=== PATIENT | male | born 1945 | race Caucasian/White ===

== ENCOUNTER 2016-08-25 21:49 | Emergency (ER) | payer OTHER ==
[~2016-08-25] VITALS: Ht 165.1 cm; Wt 94.0 kg
[~2016-08-25 21:49] MED LIST: ALBUAER2 INH; APR50 PO; ASPI81TA28 PO; CALC600T PO; CHOL100027 PO; DOXY100C PO; FLV1 PO; LEVA1.25 INH; LPT20 PO; PRED10TA PO; PRLSR20 PO; SULI200T PO; TIMO0.05 OPB; TRAM-10 PO
[2016-08-25 21:58] VITALS: TEMP 37.4; Ht 165.1 cm; Wt 94.0 kg
[2016-08-25 22:28] LABS: URINE APPEARANCE CLEAR (CLEAR); URINE BILIRUBIN NEG (NEG); URINE COLOR YELLOW; URINE EPITHELIAL CELL AUTO 20-30 /lpf (0-5); URINE NITRITE NEG (NEG); URINE SPECIFIC GRAVITY 1.004 (1.000-1.030); UROBILINOGEN NEG (NEG)
[2016-08-25 22:35] LABS: MANUAL MICROSCOPIC REQUIRED? NO; REVIEW REQ? NO
--- NOTE | 2016-08-25 23:05 | EMERGENCY ROOM VISIT NOTE ---
History First contact with patient: 21:50 Chief Complaint: UNABLE TO VOID Stated Complaint: URINARY RETENSION History of Present Illness The patient is a 71 year old male who presents to the Emergency Room with complaints of unable to urinate since 9 AM. Patient had urinary retention before. He is unsure who his urologist is. Patient does have an enlarged prostate. Patient denies chest pain, dyspnea, fever, chills, vomiting, diarrhea. He is tolerating by mouth fluids and food. No recent surgery. Review of Systems See HPI for pertinent positives & negatives. A total of 10 systems reviewed and were otherwise negative. Past Medical/Surgical History Medical Problems: (1) BPH (benign prostatic hyperplasia) (2) Cataract (3) COPD exacerbation (4) COPD, moderate (5) GERD (gastroesophageal reflux disease) (6) Glaucoma (7) Hypertension (8) NSTEMI (non-ST elevated myocardial infarction) (9) Osteoporosis (10) Pulmonary embolism (11) Rheumatoid arthritis (12) Vitamin D deficiency Surgical Problems: (1) H/O eye surgery Social History Problems: (1) Tobacco abuse Family History Aneurysm FATHER Diabetes mellitus GRANDMOTHER Social History Smoking Status: Former Smoker Alcohol Use: none Drug Use: none Marital Status: Housing Status: lives with significant other Occupation Status: unemployed Current/Historical Medications Scheduled Aspirin (Aspirin Ec), 81 MG PO DAILY Atorvastatin (Lipitor), 20 MG PO DAILY Calcium Carbonate (Calcium 600), 1 TAB PO DAILY Cholecalciferol (Vitamin D 1000 Unit), 1,000 INTER.UNIT PO DAILY Doxazosin Mesylate (Cardura), 4 MG PO HS Doxycycline Hyclate (Vibramycin), 100 MG PO UD Finasteride (Proscar), 5 MG PO DAILY Fluticasone Furoate-Vilanterol (Breo Ellipta), 1 PUFF INH BID Folic Acid (Folic Acid), 1 MG PO 6XWK Furosemide (Furosemide), 40 MG PO 3XWK Furosemide (Lasix), 20 MG PO 4XWK Hydralazine Hcl (Apresoline), 50 MG PO BID Methotrexate (Methotrexate), 12.5 MG PO WK Omeprazole (Prilosec), 20 MG PO QPM Prednisone Tab (Prednisone), 10 MG PO UD Sulindac (Clinoril), 200 MG PO BID Timolol Maleate (Ophth) (Timoptic 0.25% Oph), 1 DROP OPB BID Scheduled PRN Albuterol (Ventolin), 2 PUFF INH QID PRN for SOB/Wheezing Levalbuterol Soln (Xopenex 1.25MG/3ML), 1.25 MG INH Q4 PRN for SOB/Wheezing Tramadol (Ultram), 50 MG PO Q12 PRN for Pain Allergies Coded Allergies: No Known Allergies (Unverified , 05/21/16) Physical Exam Vital Signs Date Time Temp Pulse Resp B/P Pulse Ox O2 Delivery O2 Flow Rate FiO2 08/25/16 21:58 37.4 92 21 154/89 96 Nasal Cannula 4.0 Physical Exam VITALS: Vitals are noted on the nurse's note and reviewed by myself. Vital signs stable. Patient normally wears 4 L of oxygen GENERAL: Pleasant male who appears uncomfortable, in no acute distress, nondiaphoretic, well-developed well-nourished. SKIN: The skin was without rashes, erythema, edema, or bruising. There is no tenting of the skin. Capillary reflex less than 2 seconds. HEAD: Normocephalic atraumatic. EARS: External auditory canals clear, tympanic membranes pearly bishop without erythema or effusion bilaterally. EYES: Pupils equal round and reactive to light and accommodation. Conjunctivae without injection, sclerae without icterus. Extraocular movements intact. NOSE: Patent, turbinates without inflammation or discharge. MOUTH: Mucous membranes moist. Pharynx without erythema or exudate. Uvula midline. Airway patent. Tongue does not deviate. NECK: Supple without nuchal rigidity. No lymphadenopathy. No thyromegaly. Cervical spine is nontender. No JVD. HEART: Regular rate and rhythm LUNGS: Mild diffuse end expiratory wheezes, without rales or rhonchi. No dullness to percussion. No retractions or accessory muscle use. ABDOMEN: Positive bowel sounds x 4. Normal tympanic percussion. Soft, protuberant, obese, minimal tenderness over the bladder that is distended without masses or organomegaly. Hsu sign negative. No guarding or rebound tenderness. No CVA tenderness MUSCULOSKELETAL: No muscle atrophy noted. NEURO: Patient was alert and oriented to person place and time. Normal sensation to light and sharp touch. No focal neurological deficits. Medical Decision & Procedures Laboratory Results Test 1/23/17 22:00 Urine Color YELLOW Urine Appearance CLEAR (CLEAR) Urine pH 7.0 (4.5-7.5) Urine Specific [place] 1.004 (1.000-1.030) Urine Protein NEG (NEG) Urine Glucose (UA) NEG (NEG) Urine Ketones NEG (NEG) Urine Occult Blood NEG (NEG) Urine Nitrite NEG (NEG) Urine Bilirubin NEG (NEG) Urine Urobilinogen NEG (NEG) Urine Leukocyte Esterase NEG (NEG) Urine WBC (Auto) 1-5 /hpf (0-5) Urine RBC (Auto) 0-4 /hpf (0-4) Urine Hyaline Casts (Auto) 1-5 /lpf (0-5) Urine Epithelial Cells (Auto) 20-30 /lpf (0-5) Urine Bacteria (Auto) NEG (NEG) ED Course Prior records/ancillary studies reviewed. Triage Nursing notes reviewed. Additional history obtained from EMS The patient's history was concerning for unable to urinate Differential diagnosis: Etiologies such as urinary retention, UTI, infections, obstruction, renal colic , as well as others were entertained. Physical examination findings: As above. ER treatment provided: Nicholson catheter was placed. Bladder scan showed 753 mL's On reassessment the patient felt better. Diagnostics interpreted by me: The labs revealed no UTI on urinalysis Exam and history seem consistent with urinary retention most likely from enlarged prostate. Patient has had Nicholson catheters before. He is advised to follow-up urology in a few days or here in the ER sooner for difficulties with Nicholson catheter, fevers, vomiting, worsening signs or symptoms or as needed. By the evaluation outlined above emergent etiologies such as UTI, obstruction , infections, renal colic, as well as others were deemed relatively unlikely. The pt informed about the findings as listed above. All questions were answered and pleased with the treatment. Return instructions were outlined and the patient was discharged in stable condition. Referral: The patient was referred back to their urologist and/or primary care physician for follow-up in 2 to 3 days for a recheck of the current condition. Case reviewed with my attending Medical Decision As above Impression Primary Impression: Urinary retention due to benign prostatic hyperplasia Departure Information Dispostion Home / Self-Care Condition GOOD Referrals Bridget Multani M.D. (MEDICAL) (PCP) Patient Instructions [facility] Additional Instructions Frequently empty out the Nicholson catheter bag. Continue current medications. Follow-up with urology in 2-3 days. Return to ER sooner for fever, abdominal pain, difficulties with Nicholson catheter , likely catheter not draining, vomiting, worsening signs or symptoms or as needed.
--- NOTE | 2016-08-25 23:15 | EMERGENCY ROOM VISIT NOTE ---
ED Visit Note First contact with patient: 21:53 This Patient was discussed with the physician physicians assistant, BENJAMÍN Brito. The pertinent historical and physical exam findings were confirmed. I agree with the studies ordered and with the interpretations of these studies. I agree with the disposition and care plan.
[2016-08-26 00:21] VITALS: BP 115/86; PULSE 72; O2SAT 95
[2017-01-02] MEDS ORDERED: PRED10TA PO (11:49)
[2017-01-02] MEDS ORDERED: FERR325T5 PO ×2 (11:49→11:50)
[2017-01-02] MEDS ORDERED: CYAN10005 PO (11:50)
[2017-01-26] MEDS ORDERED: AZIT250T PO (10:28)
[2017-01-26] MEDS ORDERED: CLN200 PO (10:28)
[2017-01-26] MEDS ORDERED: LEVA1.255 NEB (10:28)
[2017-01-26] MEDS ORDERED: VNTHFA/IN INH (10:28)
[2017-01-26] MEDS ORDERED: LATA0.5S OPB (10:28)
[2017-01-26] MEDS ORDERED: SPRIN/30 INH (10:28)
[2017-01-26] MEDS ORDERED: METH2.5T PO (11:06)
[2017-01-26] MEDS ORDERED: LSX20 PO (13:50)
[2017-02-01] MEDS ORDERED: IPRASOL4 INH (09:13)
[2017-02-01] MEDS ORDERED: PRED20TA2 PO (09:13)
[2017-02-01] MEDS ORDERED: ARFO15NE NEB (09:13)
[2017-02-01] MEDS ORDERED: NEBMAC (09:15)
== END 2016-08-26 00:23 | disposition home or self-care (01) ==
LOC: EDBD 21:49 → C.EDB 21:53
DX: N40.1 Benign prostatic hyperplasia with lower urinary tract symptoms (principal); R33.9 Retention of urine, unspecified; I10 Essential (primary) hypertension; J44.9 Chronic obstructive pulmonary disease, unspecified; K21.9 Gastro-esophageal reflux disease without esophagitis; I25.2 Old myocardial infarction; M06.9 Rheumatoid arthritis, unspecified; M81.0 Age-related osteoporosis without current pathological fracture; E55.9 Vitamin D deficiency, unspecified; H40.9 Unspecified glaucoma; Z86.711 Personal history of pulmonary embolism; Z98.890 Other specified postprocedural states; Z87.891 Personal history of nicotine dependence; Z79.82 Long term (current) use of aspirin; Z79.899 Other long term (current) drug therapy; Z83.3 Family history of diabetes mellitus

== ENCOUNTER 2016-12-22 10:05 | Inpatient (IN) | payer OTHER ==
[~2016-12-22] VITALS: Ht 167.6 cm; Wt 86.4 kg
[~2016-12-22 10:05] MED LIST changes: -APR50 PO; -DOXY100C PO; -LPT20 PO; -PRED10TA PO
--- NOTE | 2016-12-22 10:44 | EMERGENCY ROOM VISIT NOTE ---
History Report prepared by Jennifer: Helena Mariano Under the Supervision of: Dr. Margie Humphries D.O. First contact with patient: 10:30 Chief Complaint: RESPIRATORY PROBLEMS Stated Complaint: SHORTNESS OF BREATH Nursing Triage Summary: INCREASE SOB LAST FEW DAYS STILL SMOKING WITH O2 5 LITS History of Present Illness The patient is a 71 year old male who presents to the Emergency Room with complaints of worsening shortness of breath beginning a few days prior to arrival. The patient has a chronic history of shortness of breath and trouble breathing. The patient is a current smoker. He wears 5 liters of oxygen at home. He has a decreased appetite and weakness. Patient denies abdominal pain or steroid use. Per the patient's daughter, she goes to her father's house on to organize his pills for the week. Yesterday she noticed that he was slurring his words, disoriented and not taking his pills correctly. The patient also started smoking again because he is bored at home. After he smokes he does a breathing treatment. The patient has become so weak that he urinates in a bottle instead of getting up to use the bathroom. Source of History: patient, family Onset: few days PURCHASER Position: other (global ) Quality: other (shortness of breath) Timing: worsening Associated Symptoms: + weakness, No abdominal pain Note: The patient is experiencing decreased appetite, slurred words, confusion and trouble walking. Review of Systems See HPI for pertinent positives & negatives. A total of 10 systems reviewed and were otherwise negative. Past Medical & Surgical Medical Problems: (1) BPH (benign prostatic hyperplasia) (2) Cataract (3) COPD exacerbation (4) COPD, moderate (5) GERD (gastroesophageal reflux disease) (6) Glaucoma (7) Hypertension (8) Non-ST elevation NM (NSTEMI) (9) Osteoporosis (10) Pulmonary embolism (11) Rheumatoid arthritis (12) Vitamin D deficiency Surgical Problems: (1) H/O eye surgery Social History Problems: (1) Tobacco abuse Family History Aneurysm FATHER Diabetes mellitus GRANDMOTHER Social History Smoking Status: Current Every Day Smoker Alcohol Use: none Drug Use: none Marital Status: Housing Status: lives with significant other Occupation Status: unemployed Current/Historical Medications Scheduled Aspirin (Aspirin Ec), 81 MG PO DAILY Atorvastatin (Lipitor), 20 MG PO DAILY Azithromycin (Zithromax), 250 MG PO 3XWK Calcium Carbonate (Calcium 600), 1 TAB PO DAILY Cholecalciferol (Vitamin D 1000 Unit), 1,000 INTER.UNIT PO DAILY Doxazosin Mesylate (Cardura), 4 MG PO HS Finasteride (Proscar), 5 MG PO DAILY Fluticasone Furoate-Vilanterol (Breo Ellipta), 1 PUFF INH BID Furosemide (Furosemide), 40 MG PO 3XWK Furosemide (Lasix), 20 MG PO 4XWK Hydralazine Hcl (Apresoline), 50 MG PO BID Latanoprost (Xalatan 0.005% Oph Celia), 1 DROPS OPB DAILY Methotrexate (Methotrexate), 12.5 MG PO WK Omeprazole (Prilosec), 20 MG PO DAILY Sulindac (Sulindac), 200 MG PO BID Tiotropium [place] (Spiriva Handihaler), 1 CAP INH DAILY Scheduled PRN Albuterol Hfa (Ventolin Hfa), 2-4 PUFFS INH Q6H PRN for SOB/Wheezing Levalbuterol Hcl (Levalbuterol), 1 VIAL NEB Q4H PRN for SOB/Wheezing Allergies Coded Allergies: No Known Allergies (Unverified , 05/21/16) Physical Exam Vital Signs Date Time Temp Pulse Resp B/P Pulse Ox O2 Delivery O2 Flow Rate FiO2 12/22/16 12:56 95 Nasal Cannula 5.0 12/22/16 11:57 89 16 114/60 95 Nasal Cannula 5.0 12/22/16 11:03 83 24 106/71 96 Room Air 12/22/16 10:22 101 12/22/16 10:21 90 24 114/66 96 Nasal Cannula 5.0 12/22/16 10:16 91 Nasal Cannula 5.0 Physical Exam HEENT: Head - normocephalic and atraumatic Pupils are equal, round, and reactive to light. Extraocular eye muscles are intact, and sclera are anicteric. Nose - dry nasal mucosa without discharge. Mouth - moist buccal mucosa. Oropharynx is nonerythematous and there is no tonsillar exudate or edema noted. Neck: Supple; no JVD appreciated Heart: Regular rate and rhythm. There is a normal S1 and S2 with no murmurs, clicks, or gallops appreciated. Lungs: Very little air movement on lungs with expiratory wheezing at bases. Abdomen: Soft, completely nontender, nondistended, with good bowel sounds. There are no palpable pulsatile masses or hepatosplenomegaly. There is no guarding, rigidity, or rebound noted. Extremities: Lower legs wrapped. No evidence of cyanosis, clubbing, or edema. There are easily palpable peripheral pulses. Skin: warm and dry with good turgor and no rashes. Neuro: Alert, oriented, easily follows commands, otherwise nonfocal. Medical Decision & Procedures ER Provider Diagnostic Interpretation: X-ray results as stated below per interpretation by me and the radiologist: CHEST 2 VIEWS ROUTINE CLINICAL HISTORY: Shortness of breath. Difficulty breathing. COMPARISON STUDY: Chest radiograph August 12, 2016. FINDINGS: Lung hyperexpansion is again noted. Mild cardiomegaly is unchanged. Bibasilar opacities favor atelectasis. There is no lobar consolidation. There is no evidence of pulmonary edema. There is a possible small right pleural effusion. There is no pneumothorax. IMPRESSION: Bibasilar opacities suggestive of atelectasis with a possible small right pleural effusion. Electronically signed by: Sanju Perea M.D. 12/22/2016 12:05 PM Dictated Date/Time: 12/22/2016 12:03 PM Laboratory Results Test 12/22/16 11:09 Immature Granulocyte % (Auto) 0.3 % White Blood Count 9.70 K/uL (4.8-10.8) Red Blood Count 4.90 M/uL (4.7-6.1) Hemoglobin 14.0 g/dL (14.0-18.0) Hematocrit 43.8 % (42-52) Mean Corpuscular Volume 89.4 fL (80-100) Mean Corpuscular Hemoglobin 28.6 pg (25-34) Mean Corpuscular Hemoglobin Concent 32.0 g/dl (32-36) Platelet Count 245 K/uL (130-400) Mean Platelet Volume 9.3 fL (7.4-10.4) Neutrophils (%) (Auto) 85.1 % Lymphocytes (%) (Auto) 10.2 % Monocytes (%) (Auto) 3.7 % Eosinophils (%) (Auto) 0.5 % Basophils (%) (Auto) 0.2 % Neutrophils # (Auto) 8.25 K/uL (1.4-6.5) Lymphocytes # (Auto) 0.99 K/uL (1.2-3.4) Monocytes # (Auto) 0.36 K/uL (0.11-0.59) Eosinophils # (Auto) 0.05 K/uL (0-0.5) Basophils # (Auto) 0.02 K/uL (0-0.2) Immature Granulocyte # (Auto) 0.03 K/uL (0.00-0.02) Prothrombin Time 12.0 SECONDS (9.0-12.0) Prothromb Time International Ratio 1.1 (0.9-1.1) Activated Partial Thromboplast Time 36.9 SECONDS (21.0-31.0) Partial Thromboplastin Ratio 1.4 Total Bilirubin 1.1 mg/dl (0.2-1) Aspartate Amino Transf (AST/SGOT) 12 U/L (15-37) Alanine Aminotransferase (ALT/SGPT) 13 U/L (12-78) Alkaline Phosphatase 101 U/L (45-117) Total Creatine Kinase 60 U/L (39-308) Creatine Kinase MB 5.5 ng/ml (0.5-3.6) Creatine Kinase MB Ratio 9.2 (0-3.0) Troponin I 0.026 ng/ml (0-0.045) Pro-B-Type Natriuretic Peptide 73358 pg/ml (0-900) Total Protein 6.5 gm/dl (6.4-8.2) Albumin 2.9 gm/dl (3.4-5.0) Globulin 3.6 gm/dl (2.5-4.0) Albumin/Globulin Ratio 0.8 (0.9-2) .lB Procedure Solu-Medrol IV 125 mg IV. ECG Indication: SOB/dyspnea Rate (beats per minute): 97 Rhythm: normal sinus Findings: PVC, T-wave inversion (Dramatic-Inferior), other (concern for ischemia) ED Course 1034: Past medical records reviewed. The patient was evaluated in room A2. A complete history and physical exam was performed. A 12 EKG was obtained. Laboratory studies were drawn as above. Patient had chest x-ray as described above. 1046: Solu-Medrol IV 125 mg IV. 1218: I talked to the family about everything. 1230: Discussed the patient's case with ABDIFATAH Ray. The patient will be evaluated for further management. 1237: Upon reevaluation, I discussed findings and results with the patient and his family. He verbalized agreement of the treatment plan. [facility] The patient will be evaluated for further management and care. Medical Decision The patient is a 71 year old male who presents to the ED with shortness of breath. Differential diagnosis includes COPD exacerbation, hypercarbic respiratory failure, encephalopathy, pneumonia, bronchitis. Lab findings include: no leukocytoses, stable H&H, BNP 17,009, Troponin 0.026, normal LFT, glucose 109, BUN 23, creatinine 1.2, sodium 125. The patient was noted to be significantly hyponatremic. This most likely cause of the patient's severe weakness. He seems to be suffering from acute COPD exacerbation. His mental status seems unremarkable at this time. He remains hemodynamically stable. [facility] management. Consults Time Called: 1228 Consulting Physician: ABDIFATAH Ray Returned Call: 1230 Discussed the patient's case. The patient will be evaluated for further management. Impression Primary Impression: Hyponatremia Additional Impressions: COPD exacerbation Weakness Scribe Attestation The scribe's documentation has been prepared under my direction and personally reviewed by me in its entirety. I confirm that the note above accurately reflects all work, treatment, procedures, and medical decision making performed by me. Departure Information Dispostion Being Evaluated By Hospitalist Referrals Bridget Multani M.D. (MEDICAL) (PCP) Problem Qualifiers
[2016-12-22] MEDS ORDERED: METHYLPREDNISOLONE 125 MG VIAL IV STA (10:46)
[2016-12-22 11:31] LABS: BASO % 0.2 %; BASO ABS # 0.02 K/uL (0-0.2); COMPLETE YES; EOS % 0.5 %; HEMATOCRIT 43.8 % (42-52); IG% 0.3 %; LYMPH % 10.2 %; LYMPH ABS # 0.99 K/uL (1.2-3.4); MEAN CELL VOLUME 89.4 fL (80-100); MEAN CORPUSCULAR HEMOGLOBIN 28.6 pg (25-34); MEAN PLATELET VOLUME 9.3 fL (7.4-10.4); MONO % 3.7 %; NEUT % 85.1 %; PLATELET COUNT 245 K/uL (130-400)
[2016-12-22 11:41] LABS: INR 1.1 (0.9-1.1); PARTIAL THROMBOPLASTIN RATIO 1.4
[2016-12-22 11:52] LABS: BUN/CREATININE RATIO 19.3 (10-20); CALCIUM 8.1 mg/dl (8.5-10.1); CREATININE 1.2 mg/dl (0.60-1.40); MAGNESIUM 2.2 mg/dl (1.8-2.4); POTASSIUM 4.4 mmol/L (3.5-5.1)
[2016-12-22 11:58] LABS: ALB/GLOB RATIO 0.8 (0.9-2); CKMB/CK RATIO 9.2 (0-3.0)
--- NOTE | 2016-12-22 12:06 | DIAGNOSTIC IMAGING REPORT ---
CHEST 2 VIEWS ROUTINE CLINICAL HISTORY: Shortness of breath. Difficulty breathing. COMPARISON STUDY: Chest radiograph August 12, 2016. FINDINGS: Lung hyperexpansion is again noted. Mild cardiomegaly is unchanged. Bibasilar opacities favor atelectasis. There is no lobar consolidation. There is no evidence of pulmonary edema. There is a possible small right pleural effusion. There is no pneumothorax. IMPRESSION: Bibasilar opacities suggestive of atelectasis with a possible small right pleural effusion. Electronically signed by: Sanju Perea M.D. 12/22/2016 12:05 PM Dictated Date/Time: 12/22/2016 12:03 PM
[2016-12-22 12:56] VITALS: O2SAT 95; Ht 167.6 cm; Wt 86.4 kg
[2016-12-22] MEDS ORDERED: POLYETHYLENE (MIRALAX) 17 GM PACK PO PRN (13:15)
[2016-12-22] MEDS ORDERED: ACETAMINOPHEN 325 MG TAB PO PRN (13:15)
[2016-12-22] MEDS ORDERED: OMEP20CA9 PO (13:25)
[2016-12-22] MEDS ORDERED: LEVOFLOXACIN / D5W 750 MG in PREMIXED IN D5W 150 ML IV SCH (13:30)
[2016-12-22] MEDS ORDERED: LEVALBUTEROL/IPRATROPIUM NEB INH PRN (13:30)
[2016-12-22] MEDS ORDERED: ONDANSETRON INJ 2 MG/ML 2 ML VIAL IV PRN (13:30)
--- NOTE | 2016-12-22 14:02 | History and Physical ---
History & Physical Date & Time of Service: December 22, 2016 at 13:37 Chief Complaint: Shortness Of Breath Primary Care Physician: Bridget Multani M.D. (MEDICAL) History of Present Illness Source: patient, family, clinic records, hospital records Patient seen and examined. 71 year old male with PMHx of COPD with chronic hypoxic respiratory failure, CAITLIN, HTN , RA, h/o NSTEMI, CKD stage 3 and other problems listed below presents to the ED complaining of SOB x 1 month, gradually worsening. Patient reports he is having more and more difficulty breathing. It started about a month ago when he resumed smoking. He has an associated cough with occasional sputum production. Over the same period of time the patient's family has noticed that he seems to be getting more confused and fatigued. He feels generally weak. Family thought he was too weak to go to an outpatient office to be evaluated so they called EMS. Patient denies fevers, chills, dizziness, syncope, rhinorrhea, chest pain, nausea, vomiting, diarrhea, dysuria, calf pain and edema. Patient reports he started to smoke again because he is "bored." He wears 5L oxygen while smoking because "I can't breath without it." Patient was educated on the dangers of this and extensive time was spent educating patient on smoking cessation. In the ED VS are stable, he is saturating well on 5L, CXR is negative for acute findings, WBC count is 9.7. Na + is 125. He received IVFs and duonebs enroute to the hospital. He received Solu -medrol in the ED. He will be admitted for further workup and treatment. Past Medical/Surgical History Medical Problems: (1) BPH (benign prostatic hyperplasia) Status: Chronic (2) Cataract Status: Chronic (3) COPD, moderate Permanent Comment: shown on PFTs 06/2013 Status: Chronic (4) GERD (gastroesophageal reflux disease) Status: Chronic (5) Glaucoma Status: Chronic (6) Hypertension Status: Chronic (7) Osteoporosis Status: Chronic (8) Pulmonary embolism Permanent Comment: in 2011, was on Coumadin for 6 months Status: Resolved (9) Rheumatoid arthritis Status: Chronic (10) Vitamin D deficiency Status: Chronic Surgical Problems: (1) H/O eye surgery Status: Resolved Social History Problems: (1) Tobacco abuse Status: Chronic Family History Aneurysm FATHER Diabetes mellitus GRANDMOTHER Social History Smoking Status: Current Every Day Smoker Alcohol Use: none Drug Use: none Marital Status: Housing status: lives with family Occupational Status: retired Immunizations History of Influenza Vaccine: Yes Influenza Vaccine Date: Apr 27, 2013 History of Tetanus Vaccine?: Yes Tetanus Immunization Date: May 03, 1993 History of Pneumococcal: Yes Pneumococcal Date: Aug 21, 2005 History of Hepatitis B Vaccine: Unknown Multi-Drug Resistant Organisms History of MDRO: No Allergies Coded Allergies: No Known Allergies (Unverified , 05/21/16) Home Medications Scheduled Aspirin (Aspirin Ec), 81 MG PO DAILY Atorvastatin (Lipitor), 20 MG PO DAILY Azithromycin (Zithromax), 250 MG PO 3XWK Calcium Carbonate (Calcium 600), 1 TAB PO DAILY Cholecalciferol (Vitamin D 1000 Unit), 1,000 INTER.UNIT PO DAILY Doxazosin Mesylate (Cardura), 4 MG PO HS Finasteride (Proscar), 5 MG PO DAILY Fluticasone Furoate-Vilanterol (Breo Ellipta), 1 PUFF INH BID Furosemide (Furosemide), 40 MG PO 3XWK Furosemide (Lasix), 20 MG PO 4XWK Hydralazine Hcl (Apresoline), 50 MG PO BID Latanoprost (Xalatan 0.005% Oph Celia), 1 DROPS OPB DAILY Methotrexate (Methotrexate), 12.5 MG PO WK Omeprazole (Prilosec), 20 MG PO DAILY Sulindac (Sulindac), 200 MG PO BID Tiotropium [place] (Spiriva Handihaler), 1 CAP INH DAILY Scheduled PRN Albuterol Hfa (Ventolin Hfa), 2-4 PUFFS INH Q6H PRN for SOB/Wheezing Levalbuterol Hcl (Levalbuterol), 1 VIAL NEB Q4H PRN for SOB/Wheezing Review of Systems Constitutional: + fatigue, + weakness, No chills, No fever Eyes: No worsening of vision ENT: No nasal symptoms Respiratory: + cough, + shortness of breath, + sputum, + wheezing Cardiovascular: No chest pain, No edema, No palpitations Abdomen: No diarrhea, No nausea, No pain, No vomiting Musculoskeletal: No calf pain, No swelling Genitourinary - Male: No dysuria Neurologic: No numbness/tingling, No vertigo Psychiatric: No anxiety Endocrine: + fatigue Hematologic / Lymphatic: No abnormal bleeding/bruising, No clotting problems Integumentary: No itch, No rash Allergic / Immunologic: No environmental allergies Physical Exam Vital Signs Date Time Temp Pulse Resp B/P Pulse Ox O2 Delivery O2 Flow Rate FiO2 12/22/16 12:56 95 Nasal Cannula 5.0 12/22/16 11:57 89 16 114/60 95 Nasal Cannula 5.0 12/22/16 11:03 83 24 106/71 96 Room Air 12/22/16 10:22 101 12/22/16 10:21 90 24 114/66 96 Nasal Cannula 5.0 12/22/16 10:16 91 Nasal Cannula 5.0 General Appearance: + pertinent finding (WD/WN 71 year old male lying in bed in NAD with family at bedside ) Head: normocephalic, atraumatic Eyes: PERRL, EOMI, sclerae normal ENT: hearing grossly normal, pharynx normal Neck: supple, no JVD Respiratory/Chest: chest non-tender, + pertinent finding (very poor air entry, decreased breath sounds) Cardiovascular: regular rate, rhythm, no edema, no gallop, no JVD, no murmur, normal peripheral pulses Abdomen/GI: normal bowel sounds, non tender, soft Back: normal inspection, no muscle spasm Extremities/Musculoskelatal: no calf tenderness, normal capillary refill, no pedal edema, + pertinent finding (scabbing BL shins appear to be healing well, no signs of infection ) Neurologic/Psych: alert, oriented x 3, + pertinent finding (nonfocal ) Skin: normal color, warm/dry, no rash Lymphatic: no adenopathy Diagnostics Laboratory Results Results Past 24 Hours Test 12/22/16 11:09 Range/Units White Blood Count 9.70 4.8-10.8 K/uL Red Blood Count 4.90 4.7-6.1 M/uL Hemoglobin 14.0 14.0-18.0 g/dL Hematocrit 43.8 42-52 % Mean Corpuscular Volume 89.4 80-100 fL Mean Corpuscular Hemoglobin 28.6 25-34 pg Mean Corpuscular Hemoglobin Concent 32.0 32-36 g/dl Platelet Count 245 130-400 K/uL Mean Platelet Volume 9.3 7.4-10.4 fL Neutrophils (%) (Auto) 85.1 % Lymphocytes (%) (Auto) 10.2 % Monocytes (%) (Auto) 3.7 % Eosinophils (%) (Auto) 0.5 % Basophils (%) (Auto) 0.2 % Neutrophils # (Auto) 8.25 1.4-6.5 K/uL Lymphocytes # (Auto) 0.99 1.2-3.4 K/uL Monocytes # (Auto) 0.36 0.11-0.59 K/uL Eosinophils # (Auto) 0.05 0-0.5 K/uL Basophils # (Auto) 0.02 0-0.2 K/uL RDW Standard Deviation 49.1 36.4-46.3 fL RDW Coefficient of Variation 15.2 11.5-14.5 % Immature Granulocyte % (Auto) 0.3 % Immature Granulocyte # (Auto) 0.03 0.00-0.02 K/uL Prothrombin Time 12.0 9.0-12.0 SECONDS Prothromb Time International Ratio 1.1 0.9-1.1 Activated Partial Thromboplast Time 36.9 21.0-31.0 SECONDS Partial Thromboplastin Ratio 1.4 Sodium Level 125 136-145 mmol/L Potassium Level 4.4 3.5-5.1 mmol/L Chloride Level 89 98-107 mmol/L Carbon Dioxide Level 31 21-32 mmol/L Anion Gap 5.0 3-11 mmol/L Blood Urea Nitrogen 23 7-18 mg/dl Creatinine 1.20 0.60-1.40 mg/dl Est Creatinine Clear Calc Drug Dose 58.7 ml/min Estimated GFR () 69.1 Estimated GFR (Non- 59.6 BUN/Creatinine Ratio 19.3 10-20 Random Glucose 109 70-99 mg/dl Calcium Level 8.1 8.5-10.1 mg/dl Magnesium Level 2.2 1.8-2.4 mg/dl Total Bilirubin 1.1 0.2-1 mg/dl Aspartate Amino Transf (AST/SGOT) 12 15-37 U/L Alanine Aminotransferase (ALT/SGPT) 13 12-78 U/L Alkaline Phosphatase 101 45-117 U/L Total Creatine Kinase 60 39-308 U/L Creatine Kinase MB 5.5 0.5-3.6 ng/ml Creatine Kinase MB Ratio 9.2 0-3.0 Troponin I 0.026 0-0.045 ng/ml Pro-B-Type Natriuretic Peptide 13297 0-900 pg/ml Total Protein 6.5 6.4-8.2 gm/dl Albumin 2.9 3.4-5.0 gm/dl Globulin 3.6 2.5-4.0 gm/dl Albumin/Globulin Ratio 0.8 0.9-2 Diagnostic Radiology CXR Per radiologist read: Bibasilar opacities suggestive of atelectasis with a possible small right pleural effusion. EKG Sinus Rhythm with PVCs 97 BPM, Qtc 449, t wave inversion inferior leads Impression Assessment and Plan 71 year old male presents to the ED complaining of increased SOB, generalized weakness. Recently started to smoke again COPD EXACERBATION with chronic respiratory failure -Admit to tele -Saturating well on chronic 5L oxygen, CXR without infiltrate, no leukocytosis -Is on Chronic Azithromycin MW, follows with Merary RILEY -Patient recently started smoking again in the last month. Educated extensively on cessation, and dangers of smoking while wearing oxygen -Will treat for COPD exacerbation with Solu-Medrol 20mg IV BID -Xopenex nebs schedule and prn -Doxycycline for possible infection -obtain sputum culture if able -Pulmonary consult placed for further management -continue supplemental oxygen. HYPONATREMIA -Na+ 125, previously normal several months ago, has had episodes of hyponatremia in the past -BNP 17K, but no significant signs of volume overload -check urine osm -Fluid restrict 1500ml/day -continue Lasix -follow Na+ level BLE WOUNDS -discharged from wound clinic, appear to be healing well -continue dressing changes -Doxycycline for COPD exacerbation will also cover any occult cellulitis COR PULMONALE -Continue Lasix -BNP 17K, CXR without CHF, no major edema -continue to monitor HTN -stable continue hydralazine, Lasix CAITLIN -continue CPAP HS RHEUMATOID ARTHRITIS -follows with Dr. Wynne -continue Methotrexate, Sulindac CKD STAGE 3 -Crea 1.2 which is baseline -follow PRP -avoid nephrotoxic agents as able H/O NSTEMI -no acute issues -continue ASA, Statin TOBACCO ABUSE -Cessation counseling given -Nicotine patch ordered GERD -continue PPI BPH -continue Proscar, Doxazosin DVT PROPHYLAXIS: Sq Lovenox CODE STATUS: FULL CODE DISPO:In my clinical judgment this beneficiary meets acute admission criteria, established by [facility], that includes being hospitalized through two midnights. Patient seen in collaboration with Dr. Todd Advanced Directives Existing Living Will: Yes Existing Power of Barrel Lathe Operator Inside: Yes VTE Prophylaxis VTE Risk Assessment Done? Y/N: Yes Risk Level: Moderate Note ATTENDING ADDENDUM Record reviewed. Patient interviewed and examined. Care coordinated with Sherri Malik PA-C. Please refer to her documentation for patient's history. Briefly, 71 YO male with severe O2 dependent COPD and other problems as noted. Uses O2 5 LPM / + CPAP. Not steroid-dependent. Still smoking. Presented to ED with congested cough and increasing dyspnea. EXAM: General- appears to be chronically ill, mildly tachypneic at rest VS- as noted Neck- + JVD Lungs- diffuse wheezing with prolonged expiration Heart- RRR with ectopy Abdomen- + BS, soft, nontender Extremities- trace pretibial edema; shallow venous stasis ulcers LLE without erythema or drainage Neuro- alert DATA: WBC 9700. Total CO2 31. BUN 23, creatinine 1.2. Sodium 125. BNP 17,009. Troponin 0.026. Other lab studies as noted. CXR- mild cardiomegaly, bibasilar opacities consistent with atelectasis. EKG performed at 10:15 reviewed and demonstrated NSR at 97 / minute, PVC's, NSSTTWA's with T-wave inversion inferior leads. . ASSESSMENT AND PLAN: Chronic hypoxic respiratory failure due to severe COPD. Exacerbation of COPD due to tracheobronchitis. No apparent CHF or pneumonia. Elevated BNP could be secondary to cor pulmonale from underlying pulmonary disease. Rx with doxycycline, steroids, nebs. Continue supplemental O2 & CPAP at night. Hyponatremia probably due to SIADH. Has had it in the past. Check Uosm. Fluid restriction. Venous stasis ulcers LLE improved. Continue local care as directed by Wound Clinic. Importance of smoking cessation, especially in light of home O2, discussed with patient and family. Smoking cessation counseling will be requested. Please refer to ABDIFATAH Malik's documentation for discussion of other issues. Werner Todd MD .
[2016-12-22] MEDS ORDERED: LEVALBUTEROL/IPRATROPIUM NEB INH SCH (15:00)
[2016-12-22 15:13] VITALS: BP 132/75; PULSE 95; TEMP 36.6; O2SAT 91
[2016-12-22] MEDS ORDERED: LEVALBUTEROL 0.63MG/3 ML NEB INH PRN (15:15)
[2016-12-22] MEDS ORDERED: IPRATROPIUM BROMIDE NEB SOLN 0.02% 2.5 ML VIAL INH PRN (15:15)
[2016-12-22] MEDS: METHYLPREDNISOLONE IV 20 MG in SYRINGE 0 ML IV SCH (16:17)
[2016-12-22] MEDS: NICOTINE 14 MG/24 HR TDSY TD SCH (16:17)
[2016-12-22] MEDS: BREO ELLIPTA: ORDER AWAITING ACTION SCH ×2 (16:42→23:31)
[2016-12-22 17:54] LABS: CREATININE 1.3 mg/dl (0.60-1.40)
[2016-12-22 17:55] LABS: CALCIUM 8.5 mg/dl (8.5-10.1)
[2016-12-22 19:04] VITALS: BP 129/76; PULSE 81; TEMP 36.5; O2SAT 90
[2016-12-22 19:10] LABS: POTASSIUM 5.3 mmol/L (3.5-5.1)
[2016-12-22] MEDS: LATANOPROST 0.005% OP SOLN 2.5 ML BTL OPB SCH (20:06)
[2016-12-22] MEDS: DOXYCYCLINE HYCLATE 100 MG CAP PO SCH (20:07)
[2016-12-22] MEDS: ENOXAPARIN 40 MG/0.4 ML SYR SC SCH (20:07)
[2016-12-22] MEDS: SULINDAC 200 MG TAB PO SCH (20:08)
[2016-12-22] MEDS: DOXAZosin MESYLATE TAB 4 MG TAB PO SCH (20:09)
[2016-12-22 20:13] VITALS: BP 133/85; PULSE 69
[2016-12-22] MEDS: LEVALBUTEROL 1.25MG/0.5ML NEB INH SCH (20:20)
[2016-12-22] MEDS: IPRATROPIUM BROMIDE NEB SOLN 0.02% 2.5 ML VIAL INH SCH (20:20)
[2016-12-22 20:22] VITALS: PULSE 68; O2SAT 91
[2016-12-22 23:55] VITALS: BP 128/73; PULSE 82; TEMP 36.5; O2SAT 90
[2016-12-23] VITALS (11 sets, daily range): BP systolic 113–147; BP diastolic 67–84; PULSE 71–117; TEMP 36.3–36.7; O2SAT 90–95
[2016-12-23] MEDS: LEVALBUTEROL 1.25MG/0.5ML NEB INH SCH ×4 (01:44→19:09)
[2016-12-23] MEDS: IPRATROPIUM BROMIDE NEB SOLN 0.02% 2.5 ML VIAL INH SCH ×4 (01:44→19:09)
[2016-12-23] MEDS: METHYLPREDNISOLONE IV 20 MG in SYRINGE 0 ML IV SCH ×2 (04:07→17:57)
[2016-12-23 07:44] LABS: HEMATOCRIT 40.8 % (42-52); MEAN CELL VOLUME 89.1 fL (80-100); MEAN CORPUSCULAR HEMOGLOBIN 29.3 pg (25-34); MEAN CORPUSCULAR HGB CONC 32.8 g/dl (32-36); MEAN PLATELET VOLUME 9.9 fL (7.4-10.4); PLATELET COUNT 270 K/uL (130-400); RED BLOOD COUNT 4.58 M/uL (4.7-6.1)
[2016-12-23] MEDS: FINASTERIDE 5 MG TAB PO SCH (07:46)
[2016-12-23] MEDS: TIOTROPIUM BROMIDE 5 PUFF/90 MCG INH INH SCH (07:46)
[2016-12-23] MEDS: CHOLECALCIFEROL 1000 INTER.UNIT TAB PO SCH (07:46)
[2016-12-23] MEDS: DOXYCYCLINE HYCLATE 100 MG CAP PO SCH ×2 (07:47→21:02)
[2016-12-23] MEDS: CALCIUM CARBONATE 1250MG TAB PO SCH (07:47)
[2016-12-23] MEDS: PANTOprazole SOD 40 MG TAB PO SCH (07:47)
[2016-12-23] MEDS: ASPIRIN 81 MG ECTAB PO SCH (07:47)
[2016-12-23] MEDS: ATORVASTATIN 20 MG TAB PO SCH (07:48)
[2016-12-23] MEDS: FUROSEMIDE 20 MG TAB PO SCH (07:48)
[2016-12-23] MEDS: SULINDAC 200 MG TAB PO SCH ×2 (07:48→21:04)
[2016-12-23] MEDS: NICOTINE 14 MG/24 HR TDSY TD SCH (07:49)
[2016-12-23] MEDS: BREO ELLIPTA: ORDER AWAITING ACTION SCH ×3 (07:56→23:30)
[2016-12-23 08:25] LABS: BUN/CREATININE RATIO 26.3 (10-20); CREATININE 1.1 mg/dl (0.60-1.40); MAGNESIUM 2.1 mg/dl (1.8-2.4); POTASSIUM 5.4 mmol/L (3.5-5.1)
[2016-12-23 08:37] LABS: CALCIUM 8.8 mg/dl (8.5-10.1)
[2016-12-23] MEDS ORDERED: SODIUM POLYST. SULF SUSP 15G/60ML PO ONE (11:00)
[2016-12-23 15:46] LABS: BUN/CREATININE RATIO 23.7 (10-20); CALCIUM 8.8 mg/dl (8.5-10.1); CREATININE 1.1 mg/dl (0.60-1.40)
--- NOTE | 2016-12-23 18:10 | Progress Note ---
Internal Med Progress Note Date of Service: December 23, 2016. Provider Documentation: SUBJECTIVE: resting comfortably sob improving 'cough improved afebrile eating ok denies any complaints OBJECTIVE: Vital Signs-as noted below Exam: General-alert and awake and oriented x 3. ENT-hard of hearing Neck-no neck masses Lungs-cta b/l no wheezing or crackles Heart-s1 and s2 heard regular rate and rhythm no murmurs Abdomen-soft bowel sounds present non tender no distension Extremities- no present no erythema Neuro-alert and awake oriented moves extremities Lab data as noted below. ASSESSMENT & PLAN: 71 year old male presents to the ED complaining of increased SOB, generalized weakness. Recently started to smoke again COPD EXACERBATION with chronic respiratory failure Saturating well on chronic 5L oxygen, CXR without infiltrate, no leukocytosis on Chronic Azithromycin MWF, follows with Merary RILEY on iv steroids, doxycycline and nebs improving HYPONATREMIA -Na+ 125, hx of hyponatremia on home lasix fluid restriction repeat labs today na 126 will f/u labs Hyperkalemia Kayexalate renal diet f/u labs. BLE WOUNDS discharged from wound clinic, appear to be healing well To continue dressing changes abx as above COR PULMONALE on Lasix will monitor. HTN on hydralazine, Lasix CAITLIN CPAP HS RHEUMATOID ARTHRITIS follows with Dr. 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 H/O NSTEMI On ASA, Statin TOBACCO ABUSE Cessation counseling. GERD On PPI BPH On Proscar, Doxazosin DVT PROPHYLAXIS: Sq Lovenox CODE STATUS: FULL CODE DISPOSITION to be determined Vital Signs: Date Time Temp Pulse Resp B/P Pulse Ox O2 Delivery O2 Flow Rate FiO2 12/23/16 16:00 Nasal Cannula 6.0 12/23/16 15:21 36.6 89 20 123/67 90 Nasal Cannula 5.0 12/23/16 14:11 71 20 90 Nasal Cannula 5.0 12/23/16 12:00 Nasal Cannula 6.0 12/23/16 11:30 36.3 75 20 131/81 95 Nasal Cannula 6.0 12/23/16 08:00 Nasal Cannula 6.0 12/23/16 07:25 36.5 75 20 147/84 94 Nasal Cannula 6.0 12/23/16 04:00 36.3 82 24 113/69 91 Nasal Cannula 12/23/16 04:00 Nasal Cannula 5.0 12/23/16 01:44 71 16 92 Nasal Cannula 5.0 12/23/16 00:00 Nasal Cannula 5.0 12/22/16 23:55 36.5 82 20 128/73 90 5.0 12/22/16 20:22 68 16 91 Nasal Cannula 5.0 12/22/16 20:13 69 133/85 12/22/16 20:00 Nasal Cannula 5.0 12/22/16 19:04 36.5 81 20 129/76 90 Nasal Cannula 5.0 Lab Results: Results Past 24 Hours Test 12/23/16 07:15 12/23/16 11:40 12/23/16 15:11 Range/Units White Blood Count 9.90 4.8-10.8 K/uL Red Blood Count 4.58 4.7-6.1 M/uL Hemoglobin 13.4 14.0-18.0 g/dL Hematocrit 40.8 42-52 % Mean Corpuscular Volume 89.1 80-100 fL Mean Corpuscular Hemoglobin 29.3 25-34 pg Mean Corpuscular Hemoglobin Concent 32.8 32-36 g/dl RDW Standard Deviation 49.9 36.4-46.3 fL RDW Coefficient of Variation 15.4 11.5-14.5 % Platelet Count 270 130-400 K/uL Mean Platelet Volume 9.9 7.4-10.4 fL Sodium Level 122 126 136-145 mmol/L Potassium Level 5.4 5.0 3.5-5.1 mmol/L Chloride Level 87 88 98-107 mmol/L Carbon Dioxide Level 28 33 21-32 mmol/L Anion Gap 7.0 5.0 3-11 mmol/L Blood Urea Nitrogen 29 26 7-18 mg/dl Creatinine 1.10 1.10 0.60-1.40 mg/dl Est Creatinine Clear Calc Drug Dose 63.2 63.2 ml/min Estimated GFR () 76.8 76.8 Estimated GFR (Non- 66.2 66.2 BUN/Creatinine Ratio 26.3 23.7 10-20 Random Glucose 105 103 70-99 mg/dl Calcium Level 8.8 8.8 8.5-10.1 mg/dl Magnesium Level 2.1 1.8-2.4 mg/dl Chemistry Specimen Hemolysis Urine Osmolality 241 500-800 mOms/kg
[2016-12-23] MEDS: ENOXAPARIN 40 MG/0.4 ML SYR SC SCH (21:02)
[2016-12-23] MEDS: LATANOPROST 0.005% OP SOLN 2.5 ML BTL OPB SCH (21:03)
[2016-12-23] MEDS: DOXAZosin MESYLATE TAB 4 MG TAB PO SCH (21:04)
[2016-12-24] VITALS (12 sets, daily range): BP systolic 117–147; BP diastolic 72–84; PULSE 61–90; TEMP 36.4–37.1; O2SAT 90–98
[2016-12-24] MEDS: IPRATROPIUM BROMIDE NEB SOLN 0.02% 2.5 ML VIAL INH SCH ×4 (02:15→19:56)
[2016-12-24] MEDS: LEVALBUTEROL 1.25MG/0.5ML NEB INH SCH ×4 (02:16→19:56)
[2016-12-24] MEDS: METHYLPREDNISOLONE IV 20 MG in SYRINGE 0 ML IV SCH ×2 (04:28→16:14)
[2016-12-24] MEDS: BREO ELLIPTA: ORDER AWAITING ACTION SCH ×3 (07:12→23:50)
[2016-12-24] MEDS: ASPIRIN 81 MG ECTAB PO SCH (08:10)
[2016-12-24] MEDS: ATORVASTATIN 20 MG TAB PO SCH (08:10)
[2016-12-24] MEDS: CALCIUM CARBONATE 1250MG TAB PO SCH (08:10)
[2016-12-24] MEDS: FINASTERIDE 5 MG TAB PO SCH (08:11)
[2016-12-24] MEDS: NICOTINE 14 MG/24 HR TDSY TD SCH (08:11)
[2016-12-24] MEDS: SULINDAC 200 MG TAB PO SCH ×2 (08:11→21:22)
[2016-12-24] MEDS: PANTOprazole SOD 40 MG TAB PO SCH (08:11)
[2016-12-24] MEDS: FUROSEMIDE 40 MG TAB PO SCH (08:12)
[2016-12-24] MEDS: TIOTROPIUM BROMIDE 5 PUFF/90 MCG INH INH SCH (08:12)
[2016-12-24] MEDS: DOXYCYCLINE HYCLATE 100 MG CAP PO SCH ×2 (08:12→21:22)
[2016-12-24] MEDS: CHOLECALCIFEROL 1000 INTER.UNIT TAB PO SCH (08:12)
[2016-12-24 11:17] LABS: BUN/CREATININE RATIO 31.3 (10-20); CREATININE 0.92 mg/dl (0.60-1.40); POTASSIUM 4.6 mmol/L (3.5-5.1)
[2016-12-24 11:32] LABS: CALCIUM 8.8 mg/dl (8.5-10.1)
--- NOTE | 2016-12-24 16:08 | Progress Note ---
Internal Med Progress Note Date of Service: December 24, 2016. Provider Documentation: SUBJECTIVE: resting comfortably says sob is same cough improving fell yesterday.As per family and patient he was looking for cigarettes and walked to hallway and fell down afebrile OBJECTIVE: Vital Signs-as noted below Exam: General-alert and awake and oriented x 3. ENT-hard of hearing Neck-no neck masses Lungs-cta b/l mild b/l wheezing no crackles Heart-s1 and s2 heard regular rate and rhythm no murmurs Abdomen-soft bowel sounds present non tender no distension Extremities- no present no erythema Neuro-alert and awake oriented moves extremities Lab data as noted below. ASSESSMENT & PLAN: 71 year old male presents to the ED complaining of increased SOB, generalized weakness. Recently started to smoke again COPD EXACERBATION with chronic respiratory failure Saturating well on chronic 5L oxygen, CXR without infiltrate, no leukocytosis on Chronic Azithromycin MWF, follows with Merary RILEY on iv steroids, doxycycline and nebs slow improvement continue same HYPONATREMIA -Na+ 125, hx of hyponatremia on home lasix fluid restriction repeat labs today na 128 will f/u labs Hyperkalemia Kayexalate renal diet f/u labs. BLE WOUNDS discharged from wound clinic, appear to be healing well To continue dressing changes abx as above COR PULMONALE on Lasix will monitor. Stable conditions: HTN on hydralazine, Lasix CAITLIN CPAP HS RHEUMATOID ARTHRITIS follows with Dr. 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 H/O NSTEMI On ASA, Statin TOBACCO ABUSE Cessation counseling. nicotine patch GERD On PPI BPH On Proscar, Doxazosin DVT PROPHYLAXIS: Sq Lovenox CODE STATUS: FULL CODE DISPOSITION pt/ot social service for d/c planning to be determined Vital Signs: Date Time Temp Pulse Resp B/P Pulse Ox O2 Delivery O2 Flow Rate FiO2 12/24/16 16:00 36.5 81 18 120/72 96 5.0 12/24/16 14:15 61 20 96 Nasal Cannula 5.0 12/24/16 12:30 Nasal Cannula 5.0 12/24/16 11:35 36.6 67 20 144/79 95 Nasal Cannula 5.0 12/24/16 08:15 Nasal Cannula 5.0 12/24/16 07:19 75 20 97 Nasal Cannula 5.0 12/24/16 07:09 36.4 76 18 147/84 98 Nasal Cannula 5.0 12/24/16 04:00 Nasal Cannula 5.0 12/24/16 03:44 36.5 75 18 133/72 93 Nasal Cannula 5.0 12/24/16 02:16 69 20 90 Nasal Cannula 5.0 12/24/16 00:00 Nasal Cannula 5.0 12/23/16 23:49 36.7 72 20 138/76 95 Nasal Cannula 5.0 12/23/16 21:50 85 12/23/16 20:55 36.3 117 18 144/82 91 Nasal Cannula 5.0 12/23/16 20:00 Nasal Cannula 5.0 12/23/16 19:50 36.5 83 18 147/77 93 Nasal Cannula 5.0 12/23/16 19:09 75 20 91 Nasal Cannula 5.0 Lab Results: Results Past 24 Hours Test 12/24/16 10:19 Range/Units Sodium Level 128 136-145 mmol/L Potassium Level 4.6 3.5-5.1 mmol/L Chloride Level 92 98-107 mmol/L Carbon Dioxide Level 31 21-32 mmol/L Anion Gap 5.0 3-11 mmol/L Blood Urea Nitrogen 29 7-18 mg/dl Creatinine 0.92 0.60-1.40 mg/dl Est Creatinine Clear Calc Drug Dose 75.2 ml/min Estimated GFR () 95.3 Estimated GFR (Non- 82.2 BUN/Creatinine Ratio 31.3 10-20 Random Glucose 128 70-99 mg/dl Calcium Level 8.8 8.5-10.1 mg/dl
[2016-12-24] MEDS: LATANOPROST 0.005% OP SOLN 2.5 ML BTL OPB SCH (21:21)
[2016-12-24] MEDS: DOXAZosin MESYLATE TAB 4 MG TAB PO SCH (21:22)
[2016-12-24] MEDS: ENOXAPARIN 40 MG/0.4 ML SYR SC SCH (21:24)
[2016-12-25] VITALS (12 sets, daily range): BP systolic 120–160; BP diastolic 76–83; PULSE 78–88; TEMP 36.5–36.9; O2SAT 85–96
[2016-12-25] MEDS: IPRATROPIUM BROMIDE NEB SOLN 0.02% 2.5 ML VIAL INH SCH ×4 (02:23→19:16)
[2016-12-25] MEDS: LEVALBUTEROL 1.25MG/0.5ML NEB INH SCH ×4 (02:23→19:16)
[2016-12-25] MEDS: METHYLPREDNISOLONE IV 20 MG in SYRINGE 0 ML IV SCH (04:31)
[2016-12-25 06:45] LABS: COMPLETE YES; HEMATOCRIT 39.4 % (42-52); IG% 0.4 %; LYMPH % 6.9 %; MEAN CORPUSCULAR HEMOGLOBIN 28.9 pg (25-34); MEAN CORPUSCULAR HGB CONC 31.7 g/dl (32-36); MEAN PLATELET VOLUME 9.4 fL (7.4-10.4); MONO % 13.3 %; NEUT % 79.4 %; PLATELET COUNT 335 K/uL (130-400); RED BLOOD COUNT 4.33 M/uL (4.7-6.1); WHITE BLOOD COUNT 7.29 K/uL (4.8-10.8)
[2016-12-25 07:16] LABS: BUN/CREATININE RATIO 41.2 (10-20); CALCIUM 9.1 mg/dl (8.5-10.1); CREATININE 0.96 mg/dl (0.60-1.40); MAGNESIUM 2.3 mg/dl (1.8-2.4); POTASSIUM 4.4 mmol/L (3.5-5.1)
--- NOTE | 2016-12-25 07:56 | DIAGNOSTIC IMAGING REPORT ---
CHEST ONE VIEW PORTABLE CLINICAL HISTORY: Wheezing. COMPARISON STUDY: Chest radiograph December 22, 2016. FINDINGS: There is no pneumothorax. Cardiomediastinal silhouette is stable. Mild bibasilar opacities are unchanged. There is no evidence of pulmonary edema. Bilateral hilar prominence is unchanged and likely due to dilated central pulmonary arteries. IMPRESSION: No significant change in appearance of the chest. Stable bibasilar opacities which favor atelectasis or scarring. Electronically signed by: Sanju Perea M.D. 12/25/2016 7:55 AM Dictated Date/Time: 12/25/2016 7:53 AM
[2016-12-25] MEDS: BREO ELLIPTA: ORDER AWAITING ACTION SCH ×3 (08:00→23:26)
[2016-12-25] MEDS: TIOTROPIUM BROMIDE 5 PUFF/90 MCG INH INH SCH (08:09)
[2016-12-25] MEDS: ASPIRIN 81 MG ECTAB PO SCH (08:10)
[2016-12-25] MEDS: ATORVASTATIN 20 MG TAB PO SCH (08:10)
[2016-12-25] MEDS: CALCIUM CARBONATE 1250MG TAB PO SCH (08:10)
[2016-12-25] MEDS: CHOLECALCIFEROL 1000 INTER.UNIT TAB PO SCH (08:10)
[2016-12-25] MEDS: SULINDAC 200 MG TAB PO SCH ×2 (08:10→20:49)
[2016-12-25] MEDS: NICOTINE 21 MG/24 HR TDSY TD SCH (08:11)
[2016-12-25] MEDS: DOXYCYCLINE HYCLATE 100 MG CAP PO SCH ×2 (08:11→20:50)
[2016-12-25] MEDS: FUROSEMIDE 20 MG TAB PO SCH (08:12)
[2016-12-25] MEDS: PANTOprazole SOD 40 MG TAB PO SCH (08:12)
[2016-12-25] MEDS: FINASTERIDE 5 MG TAB PO SCH (08:12)
[2016-12-25] MEDS: METHYLPREDNISOLONE IV 40 MG in SYRINGE 0 ML IV SCH ×2 (13:36→20:46)
--- NOTE | 2016-12-25 18:45 | Progress Note ---
Internal Med Progress Note Date of Service: December 25, 2016. Provider Documentation: SUBJECTIVE: says sob is still same has cough afebrile no nausea no chest pain] OBJECTIVE: Vital Signs-as noted below Exam: General-alert and awake and oriented x 3. ENT-hard of hearing Neck-no neck masses Lungs-cta b/l mild b/l wheezing no crackles Heart-s1 and s2 heard regular rate and rhythm no murmurs Abdomen-soft bowel sounds present non tender no distension Extremities- no present no erythema Neuro-alert and awake oriented moves extremities Lab data as noted below. ASSESSMENT & PLAN: 71 year old male presents to the ED complaining of increased SOB, generalized weakness. Recently started to smoke again COPD EXACERBATION with chronic respiratory failure Saturating well on chronic 5L oxygen, CXR without infiltrate, no leukocytosis on Chronic Azithromycin MWF, follows with Merary RILEY on iv steroids, doxycycline and nebs slow improvement, increased steroids will monitor HYPONATREMIA -Na+ 125, hx of hyponatremia on home lasix fluid restriction repeat labs today na 134 will f/u labs Hyperkalemia Kayexalate renal diet resolved f/u labs. BLE WOUNDS discharged from wound clinic, appear to be healing well To continue dressing changes abx as above COR PULMONALE on Lasix will monitor. Stable conditions: HTN on hydralazine, Lasix CAITLIN CPAP HS RHEUMATOID ARTHRITIS follows with Dr. 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 H/O NSTEMI On ASA, Statin TOBACCO ABUSE Cessation counseling. nicotine patch GERD On PPI BPH On Proscar, Doxazosin DVT PROPHYLAXIS: Sq Lovenox CODE STATUS: FULL CODE DISPOSITION pt/ot recommends rehab social service for d/c planning to be determined Vital Signs: Date Time Temp Pulse Resp B/P Pulse Ox O2 Delivery O2 Flow Rate FiO2 12/25/16 16:00 Nasal Cannula 5.0 12/25/16 15:21 36.6 88 18 120/81 95 Nasal Cannula 5.0 12/25/16 14:33 88 20 95 Nasal Cannula 5.0 12/25/16 12:00 93 Nasal Cannula 3.0 12/25/16 11:15 36.5 78 20 146/77 96 Nasal Cannula 5.0 12/25/16 08:00 Nasal Cannula 5.0 12/25/16 08:00 36.6 79 16 155/80 93 Nasal Cannula 5.0 12/25/16 07:05 83 20 85 Nasal Cannula 2.0 12/25/16 04:33 36.5 87 20 160/81 90 Nasal Cannula 2.0 12/25/16 04:00 95 Nasal Cannula 5.0 12/25/16 00:05 95 Nasal Cannula 5.0 12/24/16 23:08 37.1 76 18 117/73 90 5.0 12/24/16 22:15 82 16 95 Nasal Cannula 5.0 12/24/16 22:15 90 91 5.0 12/24/16 20:00 95 Nasal Cannula 5.0 12/24/16 19:57 82 20 95 Nasal Cannula 5.0 12/24/16 19:52 36.9 81 18 145/79 95 Nasal Cannula 5.0 Lab Results: Results Past 24 Hours Test 12/25/16 06:06 Range/Units White Blood Count 7.29 4.8-10.8 K/uL Red Blood Count 4.33 4.7-6.1 M/uL Hemoglobin 12.5 14.0-18.0 g/dL Hematocrit 39.4 42-52 % Mean Corpuscular Volume 91.0 80-100 fL Mean Corpuscular Hemoglobin 28.9 25-34 pg Mean Corpuscular Hemoglobin Concent 31.7 32-36 g/dl Platelet Count 335 130-400 K/uL Mean Platelet Volume 9.4 7.4-10.4 fL Neutrophils (%) (Auto) 79.4 % Lymphocytes (%) (Auto) 6.9 % Monocytes (%) (Auto) 13.3 % Eosinophils (%) (Auto) 0.0 % Basophils (%) (Auto) 0.0 % Neutrophils # (Auto) 5.79 1.4-6.5 K/uL Lymphocytes # (Auto) 0.50 1.2-3.4 K/uL Monocytes # (Auto) 0.97 0.11-0.59 K/uL Eosinophils # (Auto) 0.00 0-0.5 K/uL Basophils # (Auto) 0.00 0-0.2 K/uL RDW Standard Deviation 51.4 36.4-46.3 fL RDW Coefficient of Variation 15.4 11.5-14.5 % Immature Granulocyte % (Auto) 0.4 % Immature Granulocyte # (Auto) 0.03 0.00-0.02 K/uL Sodium Level 134 136-145 mmol/L Potassium Level 4.4 3.5-5.1 mmol/L Chloride Level 94 98-107 mmol/L Carbon Dioxide Level 37 21-32 mmol/L Anion Gap 3.0 3-11 mmol/L Blood Urea Nitrogen 40 7-18 mg/dl Creatinine 0.96 0.60-1.40 mg/dl Est Creatinine Clear Calc Drug Dose 72.0 ml/min Estimated GFR () 90.5 Estimated GFR (Non- 78.1 BUN/Creatinine Ratio 41.2 10-20 Random Glucose 106 70-99 mg/dl Calcium Level 9.1 8.5-10.1 mg/dl Magnesium Level 2.3 1.8-2.4 mg/dl
[2016-12-25] MEDS: LATANOPROST 0.005% OP SOLN 2.5 ML BTL OPB SCH (20:48)
[2016-12-25] MEDS: ENOXAPARIN 40 MG/0.4 ML SYR SC SCH (20:49)
[2016-12-25] MEDS: DOXAZosin MESYLATE TAB 4 MG TAB PO SCH (20:49)
[2016-12-26] VITALS (10 sets, daily range): BP systolic 125–152; BP diastolic 74–83; PULSE 78–88; TEMP 36.7–37; O2SAT 90–97
[2016-12-26] MEDS: IPRATROPIUM BROMIDE NEB SOLN 0.02% 2.5 ML VIAL INH SCH ×4 (02:20→19:34)
[2016-12-26] MEDS: LEVALBUTEROL 1.25MG/0.5ML NEB INH SCH ×4 (02:20→19:34)
[2016-12-26 05:42] LABS: COMPLETE YES; HEMATOCRIT 35.7 % (42-52); IG% 0.5 %; LYMPH % 11.6 %; LYMPH ABS # 0.87 K/uL (1.2-3.4); MEAN CELL VOLUME 91.8 fL (80-100); MEAN CORPUSCULAR HGB CONC 31.7 g/dl (32-36); MEAN PLATELET VOLUME 9.2 fL (7.4-10.4); MONO % 2.8 %; NEUT % 85.1 %; PLATELET COUNT 351 K/uL (130-400); RED BLOOD COUNT 3.89 M/uL (4.7-6.1)
[2016-12-26 05:44] LABS: ARTERIAL BLD GAS O2 SATURATION 95.4 % (90-95); ARTERIAL BLOOD GAS BASE EXCESS 9.1 mEq/L (-9-1.8); ARTERIAL BLOOD GAS HCO3 36 mmol/L (19-24); ARTERIAL BLOOD GAS PO2 83 mm/Hg (80-95)
[2016-12-26 06:30] LABS: ALLEN TEST POS (POS); O2 ADMINISTRATION 2.5
[2016-12-26 06:34] LABS: BUN/CREATININE RATIO 51.6 (10-20); CALCIUM 8.6 mg/dl (8.5-10.1); CREATININE 1.1 mg/dl (0.60-1.40); MAGNESIUM 2.1 mg/dl (1.8-2.4); POTASSIUM 5.1 mmol/L (3.5-5.1)
[2016-12-26] MEDS: BREO ELLIPTA: ORDER AWAITING ACTION SCH ×3 (08:00→22:47)
[2016-12-26] MEDS: SULINDAC 200 MG TAB PO SCH ×2 (09:03→20:50)
[2016-12-26] MEDS: DOXYCYCLINE HYCLATE 100 MG CAP PO SCH ×2 (09:03→20:50)
[2016-12-26] MEDS: METHYLPREDNISOLONE IV 40 MG in SYRINGE 0 ML IV SCH ×3 (09:04→20:45)
[2016-12-26] MEDS: TIOTROPIUM BROMIDE 5 PUFF/90 MCG INH INH SCH (09:04)
[2016-12-26] MEDS: CHOLECALCIFEROL 1000 INTER.UNIT TAB PO SCH (09:04)
[2016-12-26] MEDS: FINASTERIDE 5 MG TAB PO SCH (09:05)
[2016-12-26] MEDS: FUROSEMIDE 40 MG TAB PO SCH (09:05)
[2016-12-26] MEDS: ASPIRIN 81 MG ECTAB PO SCH (09:05)
[2016-12-26] MEDS: PANTOprazole SOD 40 MG TAB PO SCH (09:05)
[2016-12-26] MEDS: NICOTINE 21 MG/24 HR TDSY TD SCH (09:05)
[2016-12-26] MEDS: CALCIUM CARBONATE 1250MG TAB PO SCH (09:05)
[2016-12-26] MEDS: ATORVASTATIN 20 MG TAB PO SCH (09:05)
[2016-12-26] MEDS ORDERED: NURSING VERBAL MED ORDER ONE (16:00)
--- NOTE | 2016-12-26 18:13 | Progress Note ---
Internal Med Progress Note Date of Service: December 26, 2016. Provider Documentation: SUBJECTIVE: says sob is same has cough seems comfortable denies any pain refusing rehab OBJECTIVE: Vital Signs-as noted below Exam: General-alert and awake and oriented x 3. ENT-hard of hearing Neck-no neck masses Lungs-cta b/l mild b/l wheezing no crackles Heart-s1 and s2 heard regular rate and rhythm no murmurs Abdomen-soft bowel sounds present non tender no distension Extremities- no present no erythema Neuro-alert and awake oriented moves extremities Lab data as noted below. ASSESSMENT & PLAN: 71 year old male presents to the ED complaining of increased SOB, generalized weakness. Recently started to smoke again COPD EXACERBATION with chronic respiratory failure Saturating well on chronic 5L oxygen, CXR without infiltrate, no leukocytosis on Chronic Azithromycin MWF, follows with Merary RILEY on iv steroids, doxycycline and nebs slow improvement, increased steroids continue same for now will monitor HYPONATREMIA -Na+ 125, hx of hyponatremia on home lasix fluid restriction repeat labs today na 135 will f/u labs Hyperkalemia Kayexalate renal diet resolved f/u labs. BLE WOUNDS discharged from wound clinic, appear to be healing well To continue dressing changes wound care abx as above COR PULMONALE on Lasix will monitor. Stable conditions: HTN on hydralazine, Lasix CAITLIN CPAP HS RHEUMATOID ARTHRITIS follows with Dr. 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 H/O NSTEMI On ASA, Statin TOBACCO ABUSE Cessation counseling. nicotine patch GERD On PPI BPH On Proscar, Doxazosin DVT PROPHYLAXIS: Sq Lovenox CODE STATUS: FULL CODE DISPOSITION pt/ot recommends rehab patient refusing to go to rehab social service for d/c planning to be determined Vital Signs: Date Time Temp Pulse Resp B/P Pulse Ox O2 Delivery O2 Flow Rate FiO2 12/26/16 16:00 93 Nasal Cannula 5.0 12/26/16 15:07 36.9 86 18 131/79 96 Nasal Cannula 5.0 12/26/16 12:00 94 Nasal Cannula 5.0 12/26/16 11:18 36.8 80 20 152/78 97 Nasal Cannula 5.0 12/26/16 08:06 93 Nasal Cannula 5.0 12/26/16 07:25 36.8 78 20 130/75 90 Nasal Cannula 5.0 12/26/16 04:30 36.7 87 18 125/74 90 Nasal Cannula 5.0 12/26/16 04:00 Nasal Cannula 5.0 12/26/16 00:00 Nasal Cannula 5.0 12/25/16 23:18 36.8 81 18 142/83 95 Nasal Cannula 5.0 12/25/16 20:00 Nasal Cannula 5.0 12/25/16 19:32 36.9 85 18 125/76 96 Nasal Cannula 5.0 12/25/16 19:16 88 20 96 Nasal Cannula 5.0 Lab Results: Results Past 24 Hours Test 12/26/16 05:31 Range/Units White Blood Count 7.50 4.8-10.8 K/uL Red Blood Count 3.89 4.7-6.1 M/uL Hemoglobin 11.3 14.0-18.0 g/dL Hematocrit 35.7 42-52 % Mean Corpuscular Volume 91.8 80-100 fL Mean Corpuscular Hemoglobin 29.0 25-34 pg Mean Corpuscular Hemoglobin Concent 31.7 32-36 g/dl Platelet Count 351 130-400 K/uL Mean Platelet Volume 9.2 7.4-10.4 fL Neutrophils (%) (Auto) 85.1 % Lymphocytes (%) (Auto) 11.6 % Monocytes (%) (Auto) 2.8 % Eosinophils (%) (Auto) 0.0 % Basophils (%) (Auto) 0.0 % Neutrophils # (Auto) 6.38 1.4-6.5 K/uL Lymphocytes # (Auto) 0.87 1.2-3.4 K/uL Monocytes # (Auto) 0.21 0.11-0.59 K/uL Eosinophils # (Auto) 0.00 0-0.5 K/uL Basophils # (Auto) 0.00 0-0.2 K/uL RDW Standard Deviation 51.2 36.4-46.3 fL RDW Coefficient of Variation 15.3 11.5-14.5 % Immature Granulocyte % (Auto) 0.5 % Immature Granulocyte # (Auto) 0.04 0.00-0.02 K/uL Arterial Blood pH 7.40 7.35-7.45 Arterial Blood Partial Pressure CO2 59 35-46 mmHg Arterial Blood Partial Pressure O2 83 80-95 mm/Hg Arterial Blood HCO3 36 19-24 mmol/L Arterial Blood Oxygen Saturation 95.4 90-95 % Arterial Blood Base Excess 9.1 -9-1.8 mEq/L Arterial Blood Gas Delivery 2.5 Henry Test POS POS Sodium Level 135 136-145 mmol/L Potassium Level 5.1 3.5-5.1 mmol/L Chloride Level 97 98-107 mmol/L Carbon Dioxide Level 37 21-32 mmol/L Anion Gap 1.0 3-11 mmol/L Blood Urea Nitrogen 57 7-18 mg/dl Creatinine 1.10 0.60-1.40 mg/dl Est Creatinine Clear Calc Drug Dose 62.8 ml/min Estimated GFR () 76.8 Estimated GFR (Non- 66.2 BUN/Creatinine Ratio 51.6 10-20 Random Glucose 125 70-99 mg/dl Calcium Level 8.6 8.5-10.1 mg/dl Magnesium Level 2.1 1.8-2.4 mg/dl
[2016-12-26] MEDS: LATANOPROST 0.005% OP SOLN 2.5 ML BTL OPB SCH (20:46)
[2016-12-26] MEDS: DOXAZosin MESYLATE TAB 4 MG TAB PO SCH (20:50)
[2016-12-26] MEDS: ENOXAPARIN 40 MG/0.4 ML SYR SC SCH (20:51)
[2016-12-27] VITALS (13 sets, daily range): BP systolic 105–136; BP diastolic 65–81; PULSE 68–96; TEMP 36.4–36.7; O2SAT 91–98
[2016-12-27] MEDS: IPRATROPIUM BROMIDE NEB SOLN 0.02% 2.5 ML VIAL INH SCH ×3 (07:07→18:59)
[2016-12-27] MEDS: LEVALBUTEROL 1.25MG/0.5ML NEB INH SCH ×3 (07:07→18:59)
[2016-12-27 07:33] LABS: BASO % 0.1 %; BASO ABS # 0.01 K/uL (0-0.2); COMPLETE YES; HEMATOCRIT 34.3 % (42-52); IG% 1.8 %; LYMPH ABS # 0.59 K/uL (1.2-3.4); MEAN CELL VOLUME 92.2 fL (80-100); MEAN CORPUSCULAR HEMOGLOBIN 28.5 pg (25-34); MEAN CORPUSCULAR HGB CONC 30.9 g/dl (32-36); MEAN PLATELET VOLUME 8.7 fL (7.4-10.4); MONO % 9.2 %; NEUT % 80.9 %; PLATELET COUNT 329 K/uL (130-400); RED BLOOD COUNT 3.72 M/uL (4.7-6.1); WHITE BLOOD COUNT 7.38 K/uL (4.8-10.8)
[2016-12-27 08:00] LABS: BUN/CREATININE RATIO 60.4 (10-20); CALCIUM 9.3 mg/dl (8.5-10.1); CREATININE 1.3 mg/dl (0.60-1.40); MAGNESIUM 2.4 mg/dl (1.8-2.4); POTASSIUM 4.7 mmol/L (3.5-5.1)
[2016-12-27] MEDS: BREO ELLIPTA: ORDER AWAITING ACTION SCH ×2 (08:00→16:00)
[2016-12-27] MEDS: METHYLPREDNISOLONE IV 40 MG in SYRINGE 0 ML IV SCH ×3 (08:06→21:53)
[2016-12-27] MEDS: PANTOprazole SOD 40 MG TAB PO SCH (08:07)
[2016-12-27] MEDS: SULINDAC 200 MG TAB PO SCH ×2 (08:07→21:57)
[2016-12-27] MEDS: ATORVASTATIN 20 MG TAB PO SCH (08:07)
[2016-12-27] MEDS: ASPIRIN 81 MG ECTAB PO SCH (08:08)
[2016-12-27] MEDS: CHOLECALCIFEROL 1000 INTER.UNIT TAB PO SCH (08:08)
[2016-12-27] MEDS: TIOTROPIUM BROMIDE 5 PUFF/90 MCG INH INH SCH (08:08)
[2016-12-27] MEDS: DOXYCYCLINE HYCLATE 100 MG CAP PO SCH ×2 (08:08→21:57)
[2016-12-27] MEDS: CALCIUM CARBONATE 1250MG TAB PO SCH (08:08)
[2016-12-27] MEDS: FINASTERIDE 5 MG TAB PO SCH (08:08)
[2016-12-27] MEDS: FUROSEMIDE 20 MG TAB PO SCH (08:09)
[2016-12-27] MEDS: NICOTINE 21 MG/24 HR TDSY TD SCH (08:13)
[2016-12-27] MEDS: SODIUM CHLORIDE 0.9% 1000ML 1,000 ML IV SCH (16:30)
--- NOTE | 2016-12-27 18:25 | Progress Note ---
Internal Med Progress Note Date of Service: December 27, 2016. Provider Documentation: SUBJECTIVE: says sob is same denies any pain eating ok no complaints OBJECTIVE: Vital Signs-as noted below Exam: General-alert and awake and oriented x 3. ENT-hard of hearing Neck-no neck masses Lungs-cta b/l mild b/l wheezing no crackles Heart-s1 and s2 heard regular rate and rhythm no murmurs Abdomen-soft bowel sounds present non tender no distension Extremities- no present no erythema Neuro-alert and awake oriented moves extremities Lab data as noted below. ASSESSMENT & PLAN: 71 year old male presents to the ED complaining of increased SOB, generalized weakness. Recently started to smoke again COPD EXACERBATION with chronic respiratory failure Saturating well on chronic 5L oxygen, CXR without infiltrate, no leukocytosis on Chronic Azithromycin MWF, follows with Merary RILEY on iv steroids, doxycycline and nebs slow improvement, increased steroids Will continue same for now will taper sterids from am will monitor HYPONATREMIA -Na+ 125, hx of hyponatremia on home lasix fluid restriction repeat labs today na 139 will f/u labs Hyperkalemia Kayexalate renal diet resolved f/u labs. BLE WOUNDS discharged from wound clinic, appear to be healing well To continue dressing changes wound care abx as above COR PULMONALE on Lasix will monitor. Stable conditions: HTN on hydralazine, Lasix CAITLIN CPAP HS RHEUMATOID ARTHRITIS follows with Dr. 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 H/O NSTEMI On ASA, Statin TOBACCO ABUSE Cessation counseling. nicotine patch GERD On PPI BPH On Proscar, Doxazosin DVT PROPHYLAXIS: Sq Lovenox CODE STATUS: FULL CODE DISPOSITION pt/ot recommends rehab patient refusing to go to rehab social service for d/c planning to be determined Vital Signs: Date Time Temp Pulse Resp B/P Pulse Ox O2 Delivery O2 Flow Rate FiO2 12/27/16 16:00 96 Nasal Cannula 5.0 12/27/16 14:50 36.7 77 20 136/72 95 Nasal Cannula 5.0 12/27/16 14:05 68 20 98 Nasal Cannula 5.0 12/27/16 12:00 94 Nasal Cannula 5.0 12/27/16 11:30 36.5 83 20 123/81 95 Nasal Cannula 5.0 12/27/16 08:00 96 Nasal Cannula 5.0 12/27/16 07:22 36.4 80 20 122/73 96 Nasal Cannula 5.0 12/27/16 07:07 83 18 97 Nasal Cannula 5.0 12/27/16 04:59 36.5 76 18 124/75 91 5.0 12/27/16 04:00 Nasal Cannula 5.0 12/27/16 00:20 36.6 82 18 129/80 93 5.0 12/27/16 00:00 Nasal Cannula 5.0 12/26/16 20:47 82 128/82 12/26/16 20:00 Nasal Cannula 5.0 12/26/16 19:34 82 18 97 Nasal Cannula 5.0 12/26/16 19:14 37.0 88 20 136/83 96 Nasal Cannula 5.0 Lab Results: Results Past 24 Hours Test 12/27/16 07:08 Range/Units White Blood Count 7.38 4.8-10.8 K/uL Red Blood Count 3.72 4.7-6.1 M/uL Hemoglobin 10.6 14.0-18.0 g/dL Hematocrit 34.3 42-52 % Mean Corpuscular Volume 92.2 80-100 fL Mean Corpuscular Hemoglobin 28.5 25-34 pg Mean Corpuscular Hemoglobin Concent 30.9 32-36 g/dl Platelet Count 329 130-400 K/uL Mean Platelet Volume 8.7 7.4-10.4 fL Neutrophils (%) (Auto) 80.9 % Lymphocytes (%) (Auto) 8.0 % Monocytes (%) (Auto) 9.2 % Eosinophils (%) (Auto) 0.0 % Basophils (%) (Auto) 0.1 % Neutrophils # (Auto) 5.97 1.4-6.5 K/uL Lymphocytes # (Auto) 0.59 1.2-3.4 K/uL Monocytes # (Auto) 0.68 0.11-0.59 K/uL Eosinophils # (Auto) 0.00 0-0.5 K/uL Basophils # (Auto) 0.01 0-0.2 K/uL RDW Standard Deviation 51.9 36.4-46.3 fL RDW Coefficient of Variation 15.4 11.5-14.5 % Immature Granulocyte % (Auto) 1.8 % Immature Granulocyte # (Auto) 0.13 0.00-0.02 K/uL Sodium Level 139 136-145 mmol/L Potassium Level 4.7 3.5-5.1 mmol/L Chloride Level 98 98-107 mmol/L Carbon Dioxide Level 38 21-32 mmol/L Anion Gap 3.0 3-11 mmol/L Blood Urea Nitrogen 79 7-18 mg/dl Creatinine 1.30 0.60-1.40 mg/dl Est Creatinine Clear Calc Drug Dose 52.3 ml/min Estimated GFR () 62.7 Estimated GFR (Non- 54.1 BUN/Creatinine Ratio 60.4 10-20 Random Glucose 134 70-99 mg/dl Calcium Level 9.3 8.5-10.1 mg/dl Magnesium Level 2.4 1.8-2.4 mg/dl
[2016-12-27] MEDS: LATANOPROST 0.005% OP SOLN 2.5 ML BTL OPB SCH (21:53)
[2016-12-27] MEDS: DOXAZosin MESYLATE TAB 4 MG TAB PO SCH (21:57)
[2016-12-27] MEDS: ENOXAPARIN 40 MG/0.4 ML SYR SC SCH (21:58)
[2016-12-28] VITALS (12 sets, daily range): BP systolic 105–148; BP diastolic 60–86; PULSE 66–91; TEMP 36.5–36.8; O2SAT 90–99
[2016-12-28 06:17] LABS: HEMATOCRIT 34.6 % (42-52); MEAN CELL VOLUME 91.8 fL (80-100); MEAN CORPUSCULAR HEMOGLOBIN 27.6 pg (25-34); MEAN CORPUSCULAR HGB CONC 30.1 g/dl (32-36); MEAN PLATELET VOLUME 8.8 fL (7.4-10.4); PLATELET COUNT 313 K/uL (130-400); RED BLOOD COUNT 3.77 M/uL (4.7-6.1); WHITE BLOOD COUNT 8.44 K/uL (4.8-10.8)
[2016-12-28 07:06] LABS: CREATININE 1.2 mg/dl (0.60-1.40)
[2016-12-28] MEDS: IPRATROPIUM BROMIDE NEB SOLN 0.02% 2.5 ML VIAL INH SCH ×3 (07:21→19:38)
[2016-12-28] MEDS: LEVALBUTEROL 1.25MG/0.5ML NEB INH SCH ×3 (07:21→19:38)
[2016-12-28] MEDS: BREO ELLIPTA: ORDER AWAITING ACTION SCH ×4 (08:00→23:15)
[2016-12-28] MEDS: TIOTROPIUM BROMIDE 5 PUFF/90 MCG INH INH SCH (09:00)
[2016-12-28] MEDS: ATORVASTATIN 20 MG TAB PO SCH (09:00)
[2016-12-28] MEDS: PANTOprazole SOD 40 MG TAB PO SCH (09:00)
[2016-12-28] MEDS: FINASTERIDE 5 MG TAB PO SCH (09:00)
[2016-12-28] MEDS: FUROSEMIDE 20 MG TAB PO SCH (09:00)
[2016-12-28] MEDS: CHOLECALCIFEROL 1000 INTER.UNIT TAB PO SCH (09:00)
[2016-12-28] MEDS: ASPIRIN 81 MG ECTAB PO SCH (09:00)
[2016-12-28] MEDS: CALCIUM CARBONATE 1250MG TAB PO SCH (09:00)
[2016-12-28] MEDS: NICOTINE 21 MG/24 HR TDSY TD SCH (09:00)
[2016-12-28] MEDS: SULINDAC 200 MG TAB PO SCH ×2 (09:00→21:21)
[2016-12-28] MEDS: DOXYCYCLINE HYCLATE 100 MG CAP PO SCH ×2 (09:00→21:21)
[2016-12-28] MEDS: SODIUM CHLORIDE 0.9% 1000ML 1,000 ML IV SCH (12:30)
--- NOTE | 2016-12-28 16:46 | Progress Note ---
Internal Med Progress Note Date of Service: December 28, 2016. Provider Documentation: SUBJECTIVE: Says sob is somewhat better denies cough today says eating ok afebrile denies any complaints OBJECTIVE: Vital Signs-as noted below Exam: General-alert and awake and oriented x 3. ENT-hard of hearing Neck-no neck masses Lungs-cta b/l mild b/l wheezing no crackles Heart-s1 and s2 heard regular rate and rhythm no murmurs Abdomen-soft bowel sounds present non tender no distension Extremities- no present no erythema Neuro-alert and awake oriented moves extremities Lab data as noted below. ASSESSMENT & PLAN: 71 year old male presents to the ED complaining of increased SOB, generalized weakness. Recently started to smoke again COPD EXACERBATION with chronic respiratory failure Saturating well on chronic 5L oxygen, CXR without infiltrate, no leukocytosis on Chronic Azithromycin MWF, follows with Merary RILEY on iv steroids, doxycycline and nebs slow improvement, increased steroids Will continue same for now will taper steroids to po in am will monitor HYPONATREMIA -Na+ 125, hx of hyponatremia on home lasix fluid restriction repeat labs na 139 will f/u labs in am Hyperkalemia Kayexalate renal diet resolved f/u labs in am BLE WOUNDS discharged from wound clinic, appear to be healing well To continue dressing changes wound care abx as above COR PULMONALE on Lasix will monitor. Stable conditions: HTN on hydralazine, Lasix CAITLIN CPAP HS RHEUMATOID ARTHRITIS follows with Dr. 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 H/O NSTEMI On ASA, Statin TOBACCO ABUSE Cessation counseling. nicotine patch GERD On PPI BPH On Proscar, Doxazosin DVT PROPHYLAXIS: Sq Lovenox CODE STATUS: FULL CODE DISPOSITION pt/ot recommends rehab patient refusing to go to rehab family requests for rehab placement social service for d/c planning to be determined Vital Signs: Date Time Temp Pulse Resp B/P Pulse Ox O2 Delivery O2 Flow Rate FiO2 12/28/16 16:00 96 Nasal Cannula 5.0 12/28/16 15:20 36.5 88 22 105/60 90 Nasal Cannula 5.0 12/28/16 13:46 82 20 96 Nasal Cannula 5.0 12/28/16 11:10 36.6 84 22 114/67 97 Room Air 12/28/16 08:00 98 Nasal Cannula 5.0 12/28/16 07:21 75 20 98 Nasal Cannula 5.0 12/28/16 07:12 36.5 72 20 130/77 91 Nasal Cannula 5.0 12/28/16 04:42 36.5 66 20 136/79 97 5.0 12/28/16 04:00 Nasal Cannula 5.0 12/28/16 00:17 36.5 71 20 145/78 99 5.0 12/28/16 00:00 Nasal Cannula 5.0 12/27/16 21:56 80 105/65 12/27/16 20:00 Nasal Cannula 5.0 12/27/16 19:51 36.6 80 20 117/65 96 5.0 12/27/16 18:59 96 20 98 Nasal Cannula 5.0 Lab Results: Results Past 24 Hours Test 12/28/16 05:46 Range/Units White Blood Count 8.44 4.8-10.8 K/uL Red Blood Count 3.77 4.7-6.1 M/uL Hemoglobin 10.4 14.0-18.0 g/dL Hematocrit 34.6 42-52 % Mean Corpuscular Volume 91.8 80-100 fL Mean Corpuscular Hemoglobin 27.6 25-34 pg Mean Corpuscular Hemoglobin Concent 30.1 32-36 g/dl RDW Standard Deviation 51.1 36.4-46.3 fL RDW Coefficient of Variation 15.3 11.5-14.5 % Platelet Count 313 130-400 K/uL Mean Platelet Volume 8.8 7.4-10.4 fL Creatinine 1.20 0.60-1.40 mg/dl Est Creatinine Clear Calc Drug Dose 56.7 ml/min Estimated GFR () 69.1 Estimated GFR (Non- 59.6
[2016-12-28] MEDS: LATANOPROST 0.005% OP SOLN 2.5 ML BTL OPB SCH (21:19)
[2016-12-28] MEDS: ENOXAPARIN 40 MG/0.4 ML SYR SC SCH (21:22)
[2016-12-28] MEDS: DOXAZosin MESYLATE TAB 4 MG TAB PO SCH (21:22)
[2016-12-28 21:59] LABS: BUN/CREATININE RATIO 50.7 (10-20); CALCIUM 8.3 mg/dl (8.5-10.1); CREATININE 1.5 mg/dl (0.60-1.40); POTASSIUM 4.5 mmol/L (3.5-5.1); THYROID STIMULATING HORMONE 0.998 uIu/ml (0.300-4.500)
[2016-12-29] VITALS (11 sets, daily range): BP systolic 98–124; BP diastolic 60–76; PULSE 73–91; TEMP 36.4–36.9; O2SAT 90–99
[2016-12-29 05:48] LABS: BASO % 0.1 %; BASO ABS # 0.01 K/uL (0-0.2); COMPLETE YES; HEMATOCRIT 30.8 % (42-52); IG% 2.4 %; LYMPH % 10.6 %; LYMPH ABS # 0.98 K/uL (1.2-3.4); MEAN CELL VOLUME 91.1 fL (80-100); MEAN CORPUSCULAR HEMOGLOBIN 28.4 pg (25-34); MEAN CORPUSCULAR HGB CONC 31.2 g/dl (32-36); MEAN PLATELET VOLUME 9.1 fL (7.4-10.4); MONO % 16.7 %; NEUT % 70.2 %; PLATELET COUNT 295 K/uL (130-400); RED BLOOD COUNT 3.38 M/uL (4.7-6.1); WHITE BLOOD COUNT 9.21 K/uL (4.8-10.8)
[2016-12-29 06:18] LABS: BUN/CREATININE RATIO 49.3 (10-20); CALCIUM 8.4 mg/dl (8.5-10.1); CREATININE 1.4 mg/dl (0.60-1.40); MAGNESIUM 2.3 mg/dl (1.8-2.4); POTASSIUM 4.9 mmol/L (3.5-5.1)
[2016-12-29] MEDS: BREO ELLIPTA: ORDER AWAITING ACTION SCH ×2 (08:00→23:55)
[2016-12-29] MEDS: IPRATROPIUM BROMIDE NEB SOLN 0.02% 2.5 ML VIAL INH SCH ×3 (08:05→19:05)
[2016-12-29] MEDS: LEVALBUTEROL 1.25MG/0.5ML NEB INH SCH ×3 (08:05→19:05)
[2016-12-29] MEDS: SODIUM CHLORIDE 0.9% 1000ML 1,000 ML IV SCH (08:14)
[2016-12-29] MEDS: TIOTROPIUM BROMIDE 5 PUFF/90 MCG INH INH SCH (08:15)
[2016-12-29] MEDS: ATORVASTATIN 20 MG TAB PO SCH (08:16)
[2016-12-29] MEDS: EUCERIN CR 120 GM JAR EXT PRN (08:16)
[2016-12-29] MEDS: ASPIRIN 81 MG ECTAB PO SCH (08:16)
[2016-12-29] MEDS: SULINDAC 200 MG TAB PO SCH ×2 (08:17→20:54)
[2016-12-29] MEDS: FUROSEMIDE 40 MG TAB PO SCH (08:17)
[2016-12-29] MEDS: FINASTERIDE 5 MG TAB PO SCH (08:18)
[2016-12-29] MEDS: NICOTINE 21 MG/24 HR TDSY TD SCH (08:18)
[2016-12-29] MEDS: CALCIUM CARBONATE 1250MG TAB PO SCH (08:18)
[2016-12-29] MEDS: PANTOprazole SOD 40 MG TAB PO SCH (08:19)
[2016-12-29] MEDS: CHOLECALCIFEROL 1000 INTER.UNIT TAB PO SCH (08:19)
[2016-12-29] MEDS: DOXYCYCLINE HYCLATE 100 MG CAP PO SCH ×2 (08:19→21:17)
[2016-12-29] MEDS ORDERED: NURSING VERBAL MED ORDER ONE (11:15)
[2016-12-29] MEDS ORDERED: SODIUM CHLORIDE 0.65% NA SOLN 45 ML (OCEAN) PRN (11:30)
--- NOTE | 2016-12-29 17:53 | Progress Note ---
Internal Med Progress Note Date of Service: December 29, 2016. Provider Documentation: SUBJECTIVE: sitting on the chair comfortably says sob and cough better afebrile Now agreeing to go to rehab eating ok OBJECTIVE: Vital Signs-as noted below Exam: General-alert and awake and oriented x 3. ENT-hard of hearing Neck-no neck masses Lungs-cta b/l no wheezing no crackles Heart-s1 and s2 heard regular rate and rhythm no murmurs Abdomen-soft bowel sounds present non tender no distension Extremities- no present no erythema Neuro-alert and awake oriented moves extremities Lab data as noted below. ASSESSMENT & PLAN: 71 year old male presents to the ED complaining of increased SOB, generalized weakness. Recently started to smoke again . Copd exacerbation. Hyponatremia and hyperkalemia which are resolved now.Slow improvement.Finished abx 7day abx course with doxycycline today. Will taper steroids. Initially refused rehab placement and but agrees now. family wants rehab placement. continue pt/ot and social service for placement COPD EXACERBATION with chronic respiratory failure Saturating well on chronic 5L oxygen, CXR without infiltrate, no leukocytosis on Chronic Azithromycin MWF, follows with Merary RILEY on iv steroids, doxycycline and nebs slow improvement, increased steroids tapering steroids now will monitor HYPONATREMIA -Na+ 125, hx of hyponatremia on home lasix was on fluid restriction repeat labs na 139 today will f/u labs in am Hyperkalemia Kayexalate renal diet resolved needs followup f/u labs in am BLE WOUNDS discharged from wound clinic, appear to be healing well To continue dressing changes wound care abx as above COR PULMONALE on Lasix will monitor. HTN on hydralazine, Lasix stable CAITLIN CPAP HS RHEUMATOID ARTHRITIS follows with Dr. Wynne On Methotrexate, Sulindac CKD STAGE 3 Crea 1.4 will f/u labs. H/O NSTEMI On ASA, Statin TOBACCO ABUSE Cessation counseling. nicotine patch GERD On PPI BPH On Proscar, Doxazosin DVT PROPHYLAXIS: Sq Lovenox CODE STATUS: FULL CODE DISPOSITION pt/ot recommends rehab patient refusing to go to rehab but agrees now family requests for rehab placement social service for d/c planning to be determined Vital Signs: Date Time Temp Pulse Resp B/P Pulse Ox O2 Delivery O2 Flow Rate FiO2 12/29/16 19:28 36.5 83 18 103/61 96 Nasal Cannula 5.0 12/29/16 19:05 82 18 94 Nasal Cannula 5.0 12/29/16 16:00 91 Nasal Cannula 5.0 12/29/16 14:51 36.6 80 18 105/64 94 Nasal Cannula 5.0 12/29/16 14:12 84 14 95 Nasal Cannula 5.0 12/29/16 12:01 90 Nasal Cannula 5.0 12/29/16 11:22 36.4 81 22 98/60 5.0 12/29/16 08:05 91 14 96 Nasal Cannula 5.0 12/29/16 08:00 96 Nasal Cannula 5.0 12/29/16 07:19 36.5 73 22 124/76 99 12/29/16 04:00 36.9 87 20 115/71 97 4.0 12/29/16 04:00 Nasal Cannula 5.0 12/29/16 00:00 Nasal Cannula 5.0 12/28/16 23:02 36.8 77 20 148/86 99 Nasal Cannula 5.0 12/28/16 21:20 78 134/81 Lab Results: Results Past 24 Hours Test 12/28/16 21:15 12/29/16 05:32 Range/Units Sodium Level 137 139 136-145 mmol/L Potassium Level 4.5 4.9 3.5-5.1 mmol/L Chloride Level 97 100 98-107 mmol/L Carbon Dioxide Level 36 37 21-32 mmol/L Anion Gap 4.0 2.0 3-11 mmol/L Blood Urea Nitrogen 76 69 7-18 mg/dl Creatinine 1.50 1.40 0.60-1.40 mg/dl Est Creatinine Clear Calc Drug Dose 45.3 48.6 ml/min Estimated GFR () 52.8 57.4 Estimated GFR (Non- 45.5 49.5 BUN/Creatinine Ratio 50.7 49.3 10-20 Random Glucose 118 100 70-99 mg/dl Calcium Level 8.3 8.4 8.5-10.1 mg/dl Magnesium Level 2.0 2.3 1.8-2.4 mg/dl Thyroid Stimulating Hormone (TSH) 0.998 0.300-4.500 uIu/ml White Blood Count 9.21 4.8-10.8 K/uL Red Blood Count 3.38 4.7-6.1 M/uL Hemoglobin 9.6 14.0-18.0 g/dL Hematocrit 30.8 42-52 % Mean Corpuscular Volume 91.1 80-100 fL Mean Corpuscular Hemoglobin 28.4 25-34 pg Mean Corpuscular Hemoglobin Concent 31.2 32-36 g/dl Platelet Count 295 130-400 K/uL Mean Platelet Volume 9.1 7.4-10.4 fL Neutrophils (%) (Auto) 70.2 % Lymphocytes (%) (Auto) 10.6 % Monocytes (%) (Auto) 16.7 % Eosinophils (%) (Auto) 0.0 % Basophils (%) (Auto) 0.1 % Neutrophils # (Auto) 6.46 1.4-6.5 K/uL Lymphocytes # (Auto) 0.98 1.2-3.4 K/uL Monocytes # (Auto) 1.54 0.11-0.59 K/uL Eosinophils # (Auto) 0.00 0-0.5 K/uL Basophils # (Auto) 0.01 0-0.2 K/uL RDW Standard Deviation 51.0 36.4-46.3 fL RDW Coefficient of Variation 15.3 11.5-14.5 % Immature Granulocyte % (Auto) 2.4 % Immature Granulocyte # (Auto) 0.22 0.00-0.02 K/uL
[2016-12-29] MEDS: LATANOPROST 0.005% OP SOLN 2.5 ML BTL OPB SCH (20:52)
[2016-12-29] MEDS: DOXAZosin MESYLATE TAB 4 MG TAB PO SCH (20:55)
[2016-12-29] MEDS: ENOXAPARIN 40 MG/0.4 ML SYR SC SCH (20:57)
[2016-12-30] VITALS (11 sets, daily range): BP systolic 97–131; BP diastolic 55–83; PULSE 66–89; TEMP 36.4–37.2; O2SAT 93–99
[2016-12-30 07:10] LABS: HEMATOCRIT 30.3 % (42-52); MEAN CELL VOLUME 91.8 fL (80-100); MEAN CORPUSCULAR HEMOGLOBIN 28.8 pg (25-34); MEAN CORPUSCULAR HGB CONC 31.4 g/dl (32-36); MEAN PLATELET VOLUME 9.3 fL (7.4-10.4); PLATELET COUNT 249 K/uL (130-400); WHITE BLOOD COUNT 8.46 K/uL (4.8-10.8)
[2016-12-30] MEDS: LEVALBUTEROL 1.25MG/0.5ML NEB INH SCH ×3 (07:24→19:44)
[2016-12-30] MEDS: IPRATROPIUM BROMIDE NEB SOLN 0.02% 2.5 ML VIAL INH SCH ×3 (07:24→19:44)
[2016-12-30 07:38] LABS: BASO % 0.1 %; BASO ABS # 0.01 K/uL (0-0.2); COMPLETE YES; EOS % 0.1 %; IG% 5.1 %; LYMPH % 14.5 %; LYMPH ABS # 1.23 K/uL (1.2-3.4); MONO % 13.1 %; NEUT % 67.1 %
[2016-12-30 07:48] LABS: BUN/CREATININE RATIO 54.8 (10-20); CALCIUM 8.3 mg/dl (8.5-10.1); CREATININE 1.1 mg/dl (0.60-1.40); MAGNESIUM 2.3 mg/dl (1.8-2.4); POTASSIUM 4.6 mmol/L (3.5-5.1)
[2016-12-30] MEDS: BREO ELLIPTA: ORDER AWAITING ACTION SCH ×3 (08:00→23:43)
[2016-12-30] MEDS: NICOTINE 21 MG/24 HR TDSY TD SCH (08:04)
[2016-12-30] MEDS: PANTOprazole SOD 40 MG TAB PO SCH (08:04)
[2016-12-30] MEDS: CHOLECALCIFEROL 1000 INTER.UNIT TAB PO SCH (08:04)
[2016-12-30] MEDS: FUROSEMIDE 20 MG TAB PO SCH (08:05)
[2016-12-30] MEDS: FINASTERIDE 5 MG TAB PO SCH (08:05)
[2016-12-30] MEDS: ASPIRIN 81 MG ECTAB PO SCH (08:06)
[2016-12-30] MEDS: ATORVASTATIN 20 MG TAB PO SCH (08:06)
[2016-12-30] MEDS: CALCIUM CARBONATE 1250MG TAB PO SCH (08:06)
[2016-12-30] MEDS: TIOTROPIUM BROMIDE 5 PUFF/90 MCG INH INH SCH (08:06)
[2016-12-30] MEDS: SULINDAC 200 MG TAB PO SCH ×2 (08:06→21:45)
[2016-12-30] MEDS: LATANOPROST 0.005% OP SOLN 2.5 ML BTL OPB SCH (20:51)
[2016-12-30] MEDS: ENOXAPARIN 40 MG/0.4 ML SYR SC SCH (21:45)
[2016-12-30] MEDS: DOXAZosin MESYLATE TAB 4 MG TAB PO SCH (21:46)
--- NOTE | 2016-12-30 22:26 | Progress Note ---
Medicine Progress Note Date & Time of Visit: December 30, 2016 at 16:50 . Subjective No fever. Dyspnea on exertion and chronic cough seem to be back to baseline. No chest pain. No nausea or vomiting. No diarrhea. No urinary symptoms. . Objective Last 8 Hrs Date Time Temp Pulse Resp B/P Pulse Ox O2 Delivery O2 Flow Rate FiO2 12/30/16 20:00 Nasal Cannula 5.0 12/30/16 19:44 84 18 94 Nasal Cannula 5.0 12/30/16 19:31 36.7 81 20 120/55 97 6.0 12/30/16 16:00 Nasal Cannula 5.0 12/30/16 15:04 36.7 89 18 97/61 94 Nasal Cannula 5.0 12/30/16 14:27 77 18 94 Nasal Cannula 5.0 Physical Exam: General- lying in bed, no distress Neck- + JVD Lungs- diffuse wheezing Heart- regular with occasional ectopy Abdomen- + BS, soft, nontender Extremities- trace pretibial edema; no calf tenderness; compression stockings applied Neuro- alert . Laboratory Results: Last 24 Hours Test 12/30/16 06:30 White Blood Count 8.46 K/uL Red Blood Count 3.30 M/uL Hemoglobin 9.5 g/dL Hematocrit 30.3 % Mean Corpuscular Volume 91.8 fL Mean Corpuscular Hemoglobin 28.8 pg Mean Corpuscular Hemoglobin Concent 31.4 g/dl Platelet Count 249 K/uL Mean Platelet Volume 9.3 fL Neutrophils (%) (Auto) 67.1 % Lymphocytes (%) (Auto) 14.5 % Monocytes (%) (Auto) 13.1 % Eosinophils (%) (Auto) 0.1 % Basophils (%) (Auto) 0.1 % Neutrophils # (Auto) 5.67 K/uL Lymphocytes # (Auto) 1.23 K/uL Monocytes # (Auto) 1.11 K/uL Eosinophils # (Auto) 0.01 K/uL Basophils # (Auto) 0.01 K/uL RDW Standard Deviation 51.6 fL RDW Coefficient of Variation 15.5 % Immature Granulocyte % (Auto) 5.1 % Immature Granulocyte # (Auto) 0.43 K/uL Sodium Level 138 mmol/L Potassium Level 4.6 mmol/L Chloride Level 98 mmol/L Carbon Dioxide Level 38 mmol/L Anion Gap 2.0 mmol/L Blood Urea Nitrogen 60 mg/dl Creatinine 1.10 mg/dl Est Creatinine Clear Calc Drug Dose 62.0 ml/min Estimated GFR () 76.8 Estimated GFR (Non- 66.2 BUN/Creatinine Ratio 54.8 Random Glucose 86 mg/dl Calcium Level 8.3 mg/dl Magnesium Level 2.3 mg/dl Assessment & Plan ACUTE ON CHRONIC RESPIRATORY FAILURE Secondary to tracheobronchitis. Received doxycycline, steroids, nebs with improvement. CHF Right-sided CHF / cor pulmonale due to underlying pulmonary disease. Continue furosemide. HYPERTENSION Continue hydralazine. HYPONATREMIA Serum sodium at time of admission was 125. Hyponatremia secondary to SIADH. Serum sodium today = 138. HYPERKALEMIA Serum K as high as 5.4. Resolved. Low K diet. Follow. VENOUS STASIS ULCERS LLE Continue local care. Follow-up with Wound Clinic. VTE PROPHYLAXIS SQ enoxaparin. Ambulate. DISPOSITION Patient unable to return home due to poor functional status. He (reluctantly) agrees to skilled care or rehab. Case Management consulted. Family Medicine follow-up with Dr. Multani. . Current Inpatient Medications: Current Inpatient Medications Medications (Trade) Dose Ordered Sig/Jono Route Start Time Stop Time Status Last Admin Dose Admin Enoxaparin Sodium (Lovenox Inj) 40 mg QPM SC 12/22/16 21:00 01/21/17 20:59 12/30/16 21:45 40 MG Acetaminophen (Tylenol Tab) 650 mg Q4H PRN PO 12/22/16 13:15 01/21/17 13:14 Polyethylene (Miralax Powder Packet) 17 gm DAILY PRN PO 12/22/16 13:15 01/21/17 13:14 Ondansetron HCl (Zofran Inj) 4 mg Q6H PRN IV 12/22/16 13:30 01/21/17 13:29 Aspirin (Ecotrin Tab) 81 mg DAILY PO 12/23/16 09:00 01/22/17 08:59 12/30/16 08:06 81 MG Atorvastatin Calcium (Lipitor Tab) 20 mg DAILY PO 12/23/16 09:00 01/22/17 08:59 12/30/16 08:06 20 MG Cholecalciferol (Vitamin D Tab) 1,000 inter.unit DAILY PO 12/23/16 09:00 01/22/17 08:59 12/30/16 08:04 1,000 INTER.UNIT Doxazosin Mesylate (Cardura Tab) 4 mg HS PO 12/22/16 21:00 01/21/17 20:59 12/30/16 21:46 4 MG Finasteride (Proscar Tab) 5 mg DAILY PO 12/23/16 09:00 01/22/17 08:59 12/30/16 08:05 5 MG Furosemide (Lasix Tab) 40 mg MoWeFr@0900 PO 12/24/16 09:00 01/23/17 08:59 12/29/16 08:17 40 MG Furosemide (Lasix Tab) 20 mg SuTuThSa@0900 PO 12/23/16 09:00 01/22/17 08:59 12/30/16 08:05 20 MG Hydralazine HCl (Apresoline Tab) 50 mg BID PO 12/22/16 21:00 01/21/17 20:59 12/30/16 21:46 50 MG Latanoprost (Xalatan Oph Soln) 1 drops HS OPB 12/22/16 21:00 01/21/17 20:59 12/30/16 20:51 1 DROPS Sulindac (Clinoril Tab) 200 mg BID PO 12/22/16 21:00 01/21/17 20:59 12/30/16 21:45 200 MG Tiotropium [place] (Spiriva Handihaler Inhaler) 1 puff DAILY INH 12/23/16 09:00 01/22/17 08:59 12/30/16 08:06 1 PUFF Calcium Carbonate (oS-Daniel 500 TAB) 1,250 mg DAILY PO 12/23/16 09:00 01/22/17 08:59 12/30/16 08:06 1,250 MG Miscellaneous Information (Order Awaiting Action) 1 ea QS N/A 12/22/16 16:00 01/21/17 15:59 Pantoprazole Sodium (Protonix Tab) 40 mg DAILY PO 12/23/16 09:00 01/22/17 08:59 12/30/16 08:04 40 MG Ipratropium [place] (Atrovent 0.02% 0.5MG/2.5ML Neb) 0.5 mg Q2H PRN INH 12/22/16 15:15 01/21/17 15:14 Levalbuterol (Xopenex 0.63 Mg/ 3 Ml Neb) 0.63 mg Q2H PRN INH 12/22/16 15:15 01/21/17 15:14 Nicotine (Nicoderm Cq 21MG Patch) 1 patch QAM TD 12/25/16 09:00 01/24/17 08:59 12/30/16 08:04 1 PATCH Miscellaneous (Remove Nicoderm Patch) 1 ea HS N/A 12/24/16 21:00 01/23/17 20:59 12/30/16 20:51 1 EA Multi-Ingredient Ointment (Eucerin Unscented Cr) 1 appln BID PRN EXT 12/26/16 16:00 01/25/17 15:59 12/29/16 08:16 1 APPLN Ipratropium [place] (Atrovent 0.02% 0.5MG/2.5ML Neb) 0.5 mg TIDR INH 12/26/16 21:00 01/25/17 20:59 12/30/16 19:44 0.5 MG Levalbuterol (Xopenex 1.25MG/ 0.5ML Neb) 1.25 mg TIDR INH 12/26/16 21:00 01/25/17 20:59 12/30/16 19:44 1.25 MG Sodium Chloride ([place] Nasal [place]) 1 sprays PRN PRN NA 12/29/16 11:30 01/28/17 11:29 Prednisone (PredniSONE TAB) 40 mg Taper DAILY PO 12/30/16 09:00 01/07/17 08:59 12/30/16 08:05 40 MG
[2016-12-31] VITALS (13 sets, daily range): BP systolic 96–119; BP diastolic 57–76; PULSE 68–84; TEMP 36.4–36.8; O2SAT 88–99
[2016-12-31 05:55] LABS: BASO % 0.1 %; BASO ABS # 0.01 K/uL (0-0.2); EOS % 0.2 %; HEMATOCRIT 28.9 % (42-52); IG% 4.1 %; LYMPH % 15.6 %; LYMPH ABS # 1.41 K/uL (1.2-3.4); MEAN CORPUSCULAR HEMOGLOBIN 27.4 pg (25-34); MEAN CORPUSCULAR HGB CONC 30.4 g/dl (32-36); MONO % 14.5 %; NEUT % 65.5 %; PLATELET COUNT 231 K/uL (130-400); RED BLOOD COUNT 3.21 M/uL (4.7-6.1); WHITE BLOOD COUNT 9.05 K/uL (4.8-10.8)
[2016-12-31 06:24] LABS: COMPLETE YES
[2016-12-31 06:31] LABS: BUN/CREATININE RATIO 40.4 (10-20); CALCIUM 8.1 mg/dl (8.5-10.1); MAGNESIUM 2.3 mg/dl (1.8-2.4); POTASSIUM 4.3 mmol/L (3.5-5.1)
[2016-12-31] MEDS: LEVALBUTEROL 1.25MG/0.5ML NEB INH SCH ×3 (06:51→19:04)
[2016-12-31] MEDS: IPRATROPIUM BROMIDE NEB SOLN 0.02% 2.5 ML VIAL INH SCH ×3 (06:51→19:04)
[2016-12-31] MEDS: BREO ELLIPTA: ORDER AWAITING ACTION SCH ×3 (08:00→23:30)
[2016-12-31] MEDS: SULINDAC 200 MG TAB PO SCH ×2 (08:53→21:28)
[2016-12-31] MEDS: TIOTROPIUM BROMIDE 5 PUFF/90 MCG INH INH SCH (08:55)
[2016-12-31] MEDS: ASPIRIN 81 MG ECTAB PO SCH (09:14)
[2016-12-31] MEDS: NICOTINE 21 MG/24 HR TDSY TD SCH (09:41)
[2016-12-31] MEDS: ATORVASTATIN 20 MG TAB PO SCH (09:41)
[2016-12-31] MEDS: CALCIUM CARBONATE 1250MG TAB PO SCH (09:42)
[2016-12-31] MEDS: FUROSEMIDE 40 MG TAB PO SCH (09:42)
[2016-12-31] MEDS: FINASTERIDE 5 MG TAB PO SCH (09:43)
[2016-12-31] MEDS: PANTOprazole SOD 40 MG TAB PO SCH (09:43)
[2016-12-31] MEDS: CHOLECALCIFEROL 1000 INTER.UNIT TAB PO SCH (09:43)
[2016-12-31] MEDS: ENOXAPARIN 40 MG/0.4 ML SYR SC SCH (21:30)
[2016-12-31] MEDS: DOXAZosin MESYLATE TAB 4 MG TAB PO SCH (21:30)
[2016-12-31] MEDS: LATANOPROST 0.005% OP SOLN 2.5 ML BTL OPB SCH (21:31)
--- NOTE | 2016-12-31 23:58 | Progress Note ---
Medicine Progress Note Date & Time of Visit: December 31, 2016 at 15:40 . Subjective Feels better. Cough and dyspnea back to baseline. No fever. No chest pain. No nausea or vomiting. No diarrhea. No urinary symptoms. . Objective Last 8 Hrs Date Time Temp Pulse Resp B/P Pulse Ox O2 Delivery O2 Flow Rate FiO2 12/31/16 23:37 36.6 75 20 109/67 99 Nasal Cannula 5.0 Humidified Oxygen 12/31/16 21:31 68 110/65 12/31/16 20:30 97 Nasal Cannula 5.0 12/31/16 19:59 36.8 82 20 96/60 99 Nasal Cannula 5.0 12/31/16 19:04 75 18 98 Nasal Cannula 5.0 12/31/16 16:10 97 Nasal Cannula 5.0 Physical Exam: General- lying in bed, no distress Neck- + JVD Lungs- diffuse mild wheezing Heart- regular rate and rhythm Abdomen- + BS, soft, nontender Extremities- trace pretibial edema; no calf tenderness; compression stockings applied Neuro- alert . Laboratory Results: Last 24 Hours Test 12/31/16 05:30 12/31/16 05:39 Sodium Level 136 mmol/L Potassium Level 4.3 mmol/L Chloride Level 96 mmol/L Carbon Dioxide Level 38 mmol/L Anion Gap 2.0 mmol/L Blood Urea Nitrogen 40 mg/dl Creatinine 1.00 mg/dl Est Creatinine Clear Calc Drug Dose 67.9 ml/min Estimated GFR () 86.2 Estimated GFR (Non- 74.3 BUN/Creatinine Ratio 40.4 Random Glucose 83 mg/dl Calcium Level 8.1 mg/dl Magnesium Level 2.3 mg/dl White Blood Count 9.05 K/uL Red Blood Count 3.21 M/uL Hemoglobin 8.8 g/dL Hematocrit 28.9 % Mean Corpuscular Volume 90.0 fL Mean Corpuscular Hemoglobin 27.4 pg Mean Corpuscular Hemoglobin Concent 30.4 g/dl Platelet Count 231 K/uL Mean Platelet Volume 9.0 fL Neutrophils (%) (Auto) 65.5 % Lymphocytes (%) (Auto) 15.6 % Monocytes (%) (Auto) 14.5 % Eosinophils (%) (Auto) 0.2 % Basophils (%) (Auto) 0.1 % Neutrophils # (Auto) 5.93 K/uL Lymphocytes # (Auto) 1.41 K/uL Monocytes # (Auto) 1.31 K/uL Eosinophils # (Auto) 0.02 K/uL Basophils # (Auto) 0.01 K/uL RDW Standard Deviation 49.8 fL RDW Coefficient of Variation 15.2 % Immature Granulocyte % (Auto) 4.1 % Immature Granulocyte # (Auto) 0.37 K/uL Nucleated RBC Absolute Count (auto) 0.02 K/uL Nucleated Red Blood Cells % 0.2 % Basophilic Stippling 1+ Assessment & Plan ACUTE ON CHRONIC RESPIRATORY FAILURE Secondary to tracheobronchitis. Received doxycycline, steroids, nebs with improvement. CHF Right-sided CHF / cor pulmonale due to underlying pulmonary disease. Continue furosemide. HYPERTENSION Continue hydralazine. HYPONATREMIA Serum sodium at time of admission was 125. Hyponatremia secondary to SIADH. Serum sodium today = 136. HYPERKALEMIA Serum K as high as 5.4. Resolved. Low K diet. Potassium today = 4.3. Follow. ANEMIA Hgb 8.8. No gross signs of GI bleeding. Follow. VENOUS STASIS ULCERS LLE Continue local care. Follow-up with [facility]. VTE PROPHYLAXIS SQ enoxaparin. Ambulate. DISPOSITION Patient unable to return home due to poor functional status. He (reluctantly) agrees to skilled care or rehab. Case Management consulted. Family Medicine follow-up with Dr. Multani. . Current Inpatient Medications: Current Inpatient Medications Medications (Trade) Dose Ordered Sig/Jono Route Start Time Stop Time Status Last Admin Dose Admin Enoxaparin Sodium (Lovenox Inj) 40 mg QPM SC 12/22/16 21:00 01/21/17 20:59 12/31/16 21:30 40 MG Acetaminophen (Tylenol Tab) 650 mg Q4H PRN PO 12/22/16 13:15 01/21/17 13:14 Polyethylene (Miralax Powder Packet) 17 gm DAILY PRN PO 12/22/16 13:15 01/21/17 13:14 Ondansetron HCl (Zofran Inj) 4 mg Q6H PRN IV 12/22/16 13:30 01/21/17 13:29 Aspirin (Ecotrin Tab) 81 mg DAILY PO 12/23/16 09:00 01/22/17 08:59 12/31/16 09:14 81 MG Atorvastatin Calcium (Lipitor Tab) 20 mg DAILY PO 12/23/16 09:00 01/22/17 08:59 12/31/16 09:41 20 MG Cholecalciferol (Vitamin D Tab) 1,000 inter.unit DAILY PO 12/23/16 09:00 01/22/17 08:59 12/31/16 09:43 1,000 INTER.UNIT Doxazosin Mesylate (Cardura Tab) 4 mg HS PO 12/22/16 21:00 01/21/17 20:59 12/31/16 21:30 4 MG Finasteride (Proscar Tab) 5 mg DAILY PO 12/23/16 09:00 01/22/17 08:59 12/31/16 09:43 5 MG Furosemide (Lasix Tab) 40 mg MoWeFr@0900 PO 12/24/16 09:00 01/23/17 08:59 12/31/16 09:42 40 MG Furosemide (Lasix Tab) 20 mg SuTuThSa@0900 PO 12/23/16 09:00 01/22/17 08:59 12/30/16 08:05 20 MG Hydralazine HCl (Apresoline Tab) 50 mg BID PO 12/22/16 21:00 01/21/17 20:59 12/31/16 21:29 50 MG Latanoprost (Xalatan Oph Soln) 1 drops HS OPB 12/22/16 21:00 01/21/17 20:59 12/31/16 21:31 1 DROPS Sulindac (Clinoril Tab) 200 mg BID PO 12/22/16 21:00 01/21/17 20:59 12/31/16 21:28 200 MG Tiotropium [place] (Spiriva Handihaler Inhaler) 1 puff DAILY INH 12/23/16 09:00 01/22/17 08:59 12/31/16 08:55 1 PUFF Calcium Carbonate (oS-Daniel 500 TAB) 1,250 mg DAILY PO 12/23/16 09:00 01/22/17 08:59 12/31/16 09:42 1,250 MG Miscellaneous Information (Order Awaiting Action) 1 ea QS N/A 12/22/16 16:00 01/21/17 15:59 Pantoprazole Sodium (Protonix Tab) 40 mg DAILY PO 12/23/16 09:00 01/22/17 08:59 12/31/16 09:43 40 MG Ipratropium [place] (Atrovent 0.02% 0.5MG/2.5ML Neb) 0.5 mg Q2H PRN INH 12/22/16 15:15 01/21/17 15:14 Levalbuterol (Xopenex 0.63 Mg/ 3 Ml Neb) 0.63 mg Q2H PRN INH 12/22/16 15:15 01/21/17 15:14 Nicotine (Nicoderm Cq 21MG Patch) 1 patch QAM TD 12/25/16 09:00 01/24/17 08:59 12/31/16 09:41 1 PATCH Miscellaneous (Remove Nicoderm Patch) 1 ea HS N/A 12/24/16 21:00 01/23/17 20:59 12/31/16 21:27 1 EA Multi-Ingredient Ointment (Eucerin Unscented Cr) 1 appln BID PRN EXT 12/26/16 16:00 01/25/17 15:59 12/29/16 08:16 1 APPLN Ipratropium [place] (Atrovent 0.02% 0.5MG/2.5ML Neb) 0.5 mg TIDR INH 12/26/16 21:00 01/25/17 20:59 12/31/16 19:04 0.5 MG Levalbuterol (Xopenex 1.25MG/ 0.5ML Neb) 1.25 mg TIDR INH 12/26/16 21:00 01/25/17 20:59 12/31/16 19:04 1.25 MG Sodium Chloride ([place] Nasal [place]) 1 sprays PRN PRN NA 12/29/16 11:30 01/28/17 11:29 Prednisone (PredniSONE TAB) 40 mg Taper DAILY PO 12/30/16 09:00 01/07/17 08:59 12/31/16 09:43 40 MG
[2017-01-01] VITALS (10 sets, daily range): BP systolic 92–120; BP diastolic 54–73; PULSE 67–85; TEMP 36.4–36.6; O2SAT 91–100
[2017-01-01] MEDS: IPRATROPIUM BROMIDE NEB SOLN 0.02% 2.5 ML VIAL INH SCH ×3 (07:09→19:19)
[2017-01-01] MEDS: LEVALBUTEROL 1.25MG/0.5ML NEB INH SCH ×3 (07:09→19:19)
[2017-01-01] MEDS: BREO ELLIPTA: ORDER AWAITING ACTION SCH ×2 (07:43→16:00)
[2017-01-01 07:55] LABS: HEMATOCRIT 30.2 % (42-52); MEAN CELL VOLUME 89.3 fL (80-100); MEAN CORPUSCULAR HEMOGLOBIN 27.5 pg (25-34); MEAN CORPUSCULAR HGB CONC 30.8 g/dl (32-36); MEAN PLATELET VOLUME 9.3 fL (7.4-10.4); PLATELET COUNT 232 K/uL (130-400); RED BLOOD COUNT 3.38 M/uL (4.7-6.1); WHITE BLOOD COUNT 10.14 K/uL (4.8-10.8)
[2017-01-01] MEDS: NICOTINE 21 MG/24 HR TDSY TD SCH (08:11)
[2017-01-01] MEDS: PANTOprazole SOD 40 MG TAB PO SCH (08:12)
[2017-01-01] MEDS: FUROSEMIDE 20 MG TAB PO SCH (08:12)
[2017-01-01] MEDS: ATORVASTATIN 20 MG TAB PO SCH (08:12)
[2017-01-01] MEDS: CHOLECALCIFEROL 1000 INTER.UNIT TAB PO SCH (08:12)
[2017-01-01] MEDS: FINASTERIDE 5 MG TAB PO SCH (08:12)
[2017-01-01] MEDS: SULINDAC 200 MG TAB PO SCH ×2 (08:12→21:20)
[2017-01-01] MEDS: ASPIRIN 81 MG ECTAB PO SCH (08:12)
[2017-01-01] MEDS: CALCIUM CARBONATE 1250MG TAB PO SCH (08:12)
[2017-01-01 08:28] LABS: CREATININE 0.9 mg/dl (0.60-1.40); POTASSIUM 4.1 mmol/L (3.5-5.1)
[2017-01-01 08:50] LABS: CALCIUM 8.3 mg/dl (8.5-10.1)
[2017-01-01] MEDS: TIOTROPIUM BROMIDE 5 PUFF/90 MCG INH INH SCH (09:01)
[2017-01-01] MEDS: ENOXAPARIN 40 MG/0.4 ML SYR SC SCH (21:18)
[2017-01-01] MEDS: LATANOPROST 0.005% OP SOLN 2.5 ML BTL OPB SCH (21:18)
[2017-01-01] MEDS: DOXAZosin MESYLATE TAB 4 MG TAB PO SCH (21:21)
[2017-01-01] MEDS: EUCERIN CR 120 GM JAR EXT PRN (21:23)
--- NOTE | 2017-01-01 21:47 | Progress Note ---
Medicine Progress Note Date & Time of Visit: Jan 01, 2017 at 20:30 . Subjective Cough and shortness of breath improved. No fever or chills. No chest pain. No nausea, vomiting, diarrhea. Voiding without difficulty. . Objective Last 8 Hrs Date Time Temp Pulse Resp B/P (MAP) Pulse Ox O2 Delivery O2 Flow Rate FiO2 01/01/17 20:28 36.5 85 18 113/73 (86) 97 Nasal Cannula 5.0 01/01/17 20:00 94 Nasal Cannula 5.0 01/01/17 19:19 76 16 96 Nasal Cannula 5.0 01/01/17 16:00 92 Nasal Cannula 5.0 01/01/17 15:13 36.6 82 22 99/61 (74) 92 Nasal Cannula 5.0 01/01/17 14:24 83 18 91 Nasal Cannula 5.0 Physical Exam: General- no distress Neck- + JVD Lungs- diffuse mild wheezing Heart- regular rate and rhythm Abdomen- + BS, soft, nontender Extremities- trace pretibial edema; no calf tenderness; compression stockings applied Neuro- alert . Laboratory Results: Last 24 Hours Test 01/01/17 07:14 White Blood Count 10.14 K/uL Red Blood Count 3.38 M/uL Hemoglobin 9.3 g/dL Hematocrit 30.2 % Mean Corpuscular Volume 89.3 fL Mean Corpuscular Hemoglobin 27.5 pg Mean Corpuscular Hemoglobin Concent 30.8 g/dl RDW Standard Deviation 49.1 fL RDW Coefficient of Variation 15.2 % Platelet Count 232 K/uL Mean Platelet Volume 9.3 fL Sodium Level 137 mmol/L Potassium Level 4.1 mmol/L Chloride Level 95 mmol/L Carbon Dioxide Level 35 mmol/L Anion Gap 7.0 mmol/L Blood Urea Nitrogen 31 mg/dl Creatinine 0.90 mg/dl Est Creatinine Clear Calc Drug Dose 75.4 ml/min Estimated GFR () 97.9 Estimated GFR (Non- 84.4 BUN/Creatinine Ratio 34.0 Random Glucose 87 mg/dl Calcium Level 8.3 mg/dl Iron Level 21 mcg/dl Total Iron Binding Capacity 304 mcg/dl Vitamin B12 Level 176 pg/mL Folate 8.51 ng/mL Assessment & Plan ACUTE ON CHRONIC RESPIRATORY FAILURE Secondary to tracheobronchitis. Received doxycycline, steroids, nebs with improvement. Taper steroids. CHF Right-sided CHF / cor pulmonale due to underlying pulmonary disease. Continue furosemide. HYPERTENSION Continue hydralazine. HYPONATREMIA Serum sodium at time of admission was 125. Hyponatremia secondary to SIADH. Serum sodium today = 137. HYPERKALEMIA Serum K as high as 5.4. Resolved. Low K diet. Potassium today = 4.1. Follow. ANEMIA Hgb 14 at time of admission. Hemoglobin fell as low as 8.8. No gross signs of GI bleeding. Normocytic. Serum iron 21, transferrin saturation 21%, B12 176, folate normal. Stool specimen for occult blood ordered. Hemoglobin today stable at 9.3. Follow. VENOUS STASIS ULCERS LLE Continue local care. Follow-up with [facility]. VTE PROPHYLAXIS SQ enoxaparin. Ambulate. DISPOSITION May need skilled care or inpatient rehabilitation. Case Management consulted. Family Medicine follow-up with Dr. Multani. . Current Inpatient Medications: Current Inpatient Medications Medications (Trade) Dose Ordered Sig/Jono Route Start Time Stop Time Status Last Admin Dose Admin Enoxaparin Sodium (Lovenox Inj) 40 mg QPM SC 12/22/16 21:00 01/21/17 20:59 01/01/17 21:18 40 MG Acetaminophen (Tylenol Tab) 650 mg Q4H PRN PO 12/22/16 13:15 01/21/17 13:14 Polyethylene (Miralax Powder Packet) 17 gm DAILY PRN PO 12/22/16 13:15 01/21/17 13:14 Ondansetron HCl (Zofran Inj) 4 mg Q6H PRN IV 12/22/16 13:30 01/21/17 13:29 Aspirin (Ecotrin Tab) 81 mg DAILY PO 12/23/16 09:00 01/22/17 08:59 01/01/17 08:12 81 MG Atorvastatin Calcium (Lipitor Tab) 20 mg DAILY PO 12/23/16 09:00 01/22/17 08:59 01/01/17 08:12 20 MG Cholecalciferol (Vitamin D Tab) 1,000 inter.unit DAILY PO 12/23/16 09:00 01/22/17 08:59 01/01/17 08:12 1,000 INTER.UNIT Doxazosin Mesylate (Cardura Tab) 4 mg HS PO 12/22/16 21:00 01/21/17 20:59 01/01/17 21:21 4 MG Finasteride (Proscar Tab) 5 mg DAILY PO 12/23/16 09:00 01/22/17 08:59 01/01/17 08:12 5 MG Furosemide (Lasix Tab) 40 mg MoWeFr@0900 PO 12/24/16 09:00 01/23/17 08:59 12/31/16 09:42 40 MG Furosemide (Lasix Tab) 20 mg SuTuThSa@0900 PO 12/23/16 09:00 01/22/17 08:59 01/01/17 08:12 20 MG Hydralazine HCl (Apresoline Tab) 50 mg BID PO 12/22/16 21:00 01/21/17 20:59 01/01/17 21:20 50 MG Latanoprost (Xalatan Oph Soln) 1 drops HS OPB 12/22/16 21:00 01/21/17 20:59 01/01/17 21:18 1 DROPS Sulindac (Clinoril Tab) 200 mg BID PO 12/22/16 21:00 01/21/17 20:59 01/01/17 21:20 200 MG Tiotropium [place] (Spiriva Handihaler Inhaler) 1 puff DAILY INH 12/23/16 09:00 01/22/17 08:59 01/01/17 09:01 1 PUFF Calcium Carbonate (oS-Daniel 500 TAB) 1,250 mg DAILY PO 12/23/16 09:00 01/22/17 08:59 01/01/17 08:12 1,250 MG Miscellaneous Information (Order Awaiting Action) 1 ea QS N/A 12/22/16 16:00 01/21/17 15:59 Pantoprazole Sodium (Protonix Tab) 40 mg DAILY PO 12/23/16 09:00 01/22/17 08:59 01/01/17 08:12 40 MG Ipratropium [place] (Atrovent 0.02% 0.5MG/2.5ML Neb) 0.5 mg Q2H PRN INH 12/22/16 15:15 01/21/17 15:14 Levalbuterol (Xopenex 0.63 Mg/ 3 Ml Neb) 0.63 mg Q2H PRN INH 12/22/16 15:15 01/21/17 15:14 Nicotine (Nicoderm Cq 21MG Patch) 1 patch QAM TD 12/25/16 09:00 01/24/17 08:59 01/01/17 08:11 1 PATCH Miscellaneous (Remove Nicoderm Patch) 1 ea HS N/A 12/24/16 21:00 01/23/17 20:59 01/01/17 21:17 1 EA Multi-Ingredient Ointment (Eucerin Unscented Cr) 1 appln BID PRN EXT 12/26/16 16:00 01/25/17 15:59 01/01/17 21:23 1 APPLN Ipratropium [place] (Atrovent 0.02% 0.5MG/2.5ML Neb) 0.5 mg TIDR INH 12/26/16 21:00 01/25/17 20:59 01/01/17 19:19 0.5 MG Levalbuterol (Xopenex 1.25MG/ 0.5ML Neb) 1.25 mg TIDR INH 12/26/16 21:00 01/25/17 20:59 01/01/17 19:19 1.25 MG Sodium Chloride ([place] Nasal [place]) 1 sprays PRN PRN NA 12/29/16 11:30 01/28/17 11:29 Prednisone (PredniSONE TAB) 30 mg Taper DAILY PO 12/30/16 09:00 01/07/17 08:59 01/01/17 08:12 30 MG
[2017-01-02] VITALS: BP 116/76; PULSE 76; TEMP 36.6; O2SAT 95
[2017-01-02 04:00] VITALS: BP 110/70; PULSE 76; TEMP 36.8; O2SAT 96
[2017-01-02 06:51] LABS: HEMATOCRIT 31.6 % (42-52); MEAN CELL VOLUME 90.8 fL (80-100); MEAN CORPUSCULAR HEMOGLOBIN 28.2 pg (25-34); MEAN PLATELET VOLUME 9.8 fL (7.4-10.4); PLATELET COUNT 232 K/uL (130-400); RED BLOOD COUNT 3.48 M/uL (4.7-6.1); WHITE BLOOD COUNT 11.53 K/uL (4.8-10.8)
[2017-01-02 07:00] VITALS: PULSE 56; O2SAT 96
[2017-01-02] MEDS: LEVALBUTEROL 1.25MG/0.5ML NEB INH SCH (07:02)
[2017-01-02] MEDS: IPRATROPIUM BROMIDE NEB SOLN 0.02% 2.5 ML VIAL INH SCH (07:02)
[2017-01-02 07:55] VITALS: BP 110/68; PULSE 76; TEMP 36.5; O2SAT 94
[2017-01-02] MEDS: SULINDAC 200 MG TAB PO SCH (08:20)
[2017-01-02] MEDS: CHOLECALCIFEROL 1000 INTER.UNIT TAB PO SCH (08:20)
[2017-01-02] MEDS: FINASTERIDE 5 MG TAB PO SCH (08:21)
[2017-01-02] MEDS: FUROSEMIDE 40 MG TAB PO SCH (08:21)
[2017-01-02] MEDS: ATORVASTATIN 20 MG TAB PO SCH (08:21)
[2017-01-02] MEDS: PANTOprazole SOD 40 MG TAB PO SCH (08:21)
[2017-01-02] MEDS: TIOTROPIUM BROMIDE 5 PUFF/90 MCG INH INH SCH (08:21)
[2017-01-02] MEDS: ASPIRIN 81 MG ECTAB PO SCH (08:21)
[2017-01-02] MEDS: NICOTINE 21 MG/24 HR TDSY TD SCH (08:22)
[2017-01-02] MEDS: CALCIUM CARBONATE 1250MG TAB PO SCH (08:22)
[2017-01-02] MEDS: BREO ELLIPTA: ORDER AWAITING ACTION SCH ×2 (08:30)
[2017-01-02 11:23] VITALS: BP 110/68; PULSE 76; TEMP 36.5; O2SAT 94
--- NOTE | 2017-01-02 11:41 | Progress Note ---
Medicine Progress Note Date & Time of Visit: Jan 02, 2017 at 11:40 . Subjective Doing well. No fever or chills. Cough and dyspnea improved, back to baseline. His insurance has denied inpatient rehabilitation. Patient's not interested in skilled care in the alf facility. He would like to be discharged to home. . Objective Last 8 Hrs Date Time Temp Pulse Resp B/P (MAP) Pulse Ox O2 Delivery O2 Flow Rate FiO2 01/02/17 11:23 36.5 76 18 94 Nasal Cannula 01/02/17 08:25 Nasal Cannula 5.0 01/02/17 07:55 36.5 76 18 110/68 (82) 94 5.0 01/02/17 07:00 56 16 96 Nasal Cannula 5.0 01/02/17 04:00 36.8 76 18 110/70 (83) 96 Nasal Cannula 5.0 01/02/17 04:00 Nasal Cannula 5.0 Physical Exam: General- no distress Neck- + JVD Lungs- mild wheezing Heart- regular rate and rhythm, no gallop appreciated Abdomen- + BS, soft, nontender Extremities- trace pretibial edema; no calf tenderness; compression stockings applied; shallow left pretibial venous stasis ulcer Neuro- alert . Laboratory Results: Last 24 Hours Test 01/02/17 06:10 White Blood Count 11.53 K/uL Red Blood Count 3.48 M/uL Hemoglobin 9.8 g/dL Hematocrit 31.6 % Mean Corpuscular Volume 90.8 fL Mean Corpuscular Hemoglobin 28.2 pg Mean Corpuscular Hemoglobin Concent 31.0 g/dl RDW Standard Deviation 50.9 fL RDW Coefficient of Variation 15.3 % Platelet Count 232 K/uL Mean Platelet Volume 9.8 fL Nucleated RBC Absolute Count (auto) 0.02 K/uL Nucleated Red Blood Cells % 0.1 % Ferritin 36.5 ng/ml Assessment & Plan ACUTE ON CHRONIC RESPIRATORY FAILURE Secondary to tracheobronchitis. Received doxycycline, steroids, nebs with improvement. Discharge on prednisone to complete taper. CHF Right-sided CHF / cor pulmonale due to underlying pulmonary disease. Continue furosemide. HYPERTENSION Continue hydralazine. HYPONATREMIA Serum sodium at time of admission was 125. Hyponatremia secondary to SIADH. Fluid restriction of 1500 mL recommended. Serum on 01/01 was 137. HYPERKALEMIA Serum K as high as 5.4. Resolved. Low K diet. Potassium on 01/01 was 4.1. Follow. ANEMIA Hgb 14 at time of admission. Hemoglobin fell as low as 8.8. No gross signs of GI bleeding. Normocytic. Serum iron 21, transferrin saturation 21%, B12 176, folate normal. Stool specimen for occult blood ordered. Hemoglobin today stable at 9.8. The patient takes sulindac or his inflammatory arthritis. Continue PPI. Discharge on ferrous sulfate and vitamin B12 supplementation. Follow H/H. Check follow-up iron levels and B12 levels in clinic to assure adequate replacement. VENOUS STASIS ULCERS LLE Improved. Continue local care. Follow-up with [facility]ound Clinic. SMOKING Importance of smoking cessation discussed at length. Specifically, has been smoking with home O2 emphasized. VTE PROPHYLAXIS SQ enoxaparin. Ambulate. DISPOSITION Case Management consulted. Arrangements made for discharge to home with home health services. Family Medicine follow-up with Dr. Multani. . Procedures: IV meds PT OT . Current Inpatient Medications: Current Inpatient Medications Medications (Trade) Dose Ordered Sig/Jono Route Start Time Stop Time Status Last Admin Dose Admin Enoxaparin Sodium (Lovenox Inj) 40 mg QPM SC 12/22/16 21:00 01/21/17 20:59 01/01/17 21:18 40 MG Acetaminophen (Tylenol Tab) 650 mg Q4H PRN PO 12/22/16 13:15 01/21/17 13:14 Polyethylene (Miralax Powder Packet) 17 gm DAILY PRN PO 12/22/16 13:15 01/21/17 13:14 Ondansetron HCl (Zofran Inj) 4 mg Q6H PRN IV 12/22/16 13:30 01/21/17 13:29 Aspirin (Ecotrin Tab) 81 mg DAILY PO 12/23/16 09:00 01/22/17 08:59 01/02/17 08:21 81 MG Atorvastatin Calcium (Lipitor Tab) 20 mg DAILY PO 12/23/16 09:00 01/22/17 08:59 01/02/17 08:21 20 MG Cholecalciferol (Vitamin D Tab) 1,000 inter.unit DAILY PO 12/23/16 09:00 01/22/17 08:59 01/02/17 08:20 1,000 INTER.UNIT Doxazosin Mesylate (Cardura Tab) 4 mg HS PO 12/22/16 21:00 01/21/17 20:59 01/01/17 21:21 4 MG Finasteride (Proscar Tab) 5 mg DAILY PO 12/23/16 09:00 01/22/17 08:59 01/02/17 08:21 5 MG Furosemide (Lasix Tab) 40 mg MoWeFr@0900 PO 12/24/16 09:00 01/23/17 08:59 01/02/17 08:21 40 MG Furosemide (Lasix Tab) 20 mg SuTuThSa@0900 PO 12/23/16 09:00 01/22/17 08:59 01/01/17 08:12 20 MG Hydralazine HCl (Apresoline Tab) 50 mg BID PO 12/22/16 21:00 01/21/17 20:59 01/02/17 08:20 50 MG Latanoprost (Xalatan Oph Soln) 1 drops HS OPB 12/22/16 21:00 01/21/17 20:59 01/01/17 21:18 1 DROPS Sulindac (Clinoril Tab) 200 mg BID PO 12/22/16 21:00 01/21/17 20:59 01/02/17 08:20 200 MG Tiotropium [place] (Spiriva Handihaler Inhaler) 1 puff DAILY INH 12/23/16 09:00 01/22/17 08:59 01/02/17 08:21 1 PUFF Calcium Carbonate (oS-Daniel 500 TAB) 1,250 mg DAILY PO 12/23/16 09:00 01/22/17 08:59 01/02/17 08:22 1,250 MG Miscellaneous Information (Order Awaiting Action) 1 ea QS N/A 12/22/16 16:00 01/21/17 15:59 Pantoprazole Sodium (Protonix Tab) 40 mg DAILY PO 12/23/16 09:00 01/22/17 08:59 01/02/17 08:21 40 MG Ipratropium [place] (Atrovent 0.02% 0.5MG/2.5ML Neb) 0.5 mg Q2H PRN INH 12/22/16 15:15 01/21/17 15:14 Levalbuterol (Xopenex 0.63 Mg/ 3 Ml Neb) 0.63 mg Q2H PRN INH 12/22/16 15:15 01/21/17 15:14 Nicotine (Nicoderm Cq 21MG Patch) 1 patch QAM TD 12/25/16 09:00 01/24/17 08:59 01/02/17 08:22 1 PATCH Miscellaneous (Remove Nicoderm Patch) 1 ea HS N/A 12/24/16 21:00 01/23/17 20:59 01/01/17 21:17 1 EA Multi-Ingredient Ointment (Eucerin Unscented Cr) 1 appln BID PRN EXT 12/26/16 16:00 01/25/17 15:59 01/01/17 21:23 1 APPLN Ipratropium [place] (Atrovent 0.02% 0.5MG/2.5ML Neb) 0.5 mg TIDR INH 12/26/16 21:00 01/25/17 20:59 01/02/17 07:02 0.5 MG Levalbuterol (Xopenex 1.25MG/ 0.5ML Neb) 1.25 mg TIDR INH 12/26/16 21:00 01/25/17 20:59 01/02/17 07:02 1.25 MG Sodium Chloride ([place] Nasal [place]) 1 sprays PRN PRN NA 12/29/16 11:30 01/28/17 11:29 Prednisone (PredniSONE TAB) 30 mg Taper DAILY PO 12/30/16 09:00 01/07/17 08:59 01/02/17 08:21 30 MG
[2017-01-02] MEDS ORDERED: PRED10TA PO (11:49)
[2017-01-02] MEDS ORDERED: FERR325T5 PO ×2 (11:49→11:50)
[2017-01-02] MEDS ORDERED: CYAN10005 PO (11:50)
--- NOTE | 2017-01-02 12:02 | Discharge Instructions ---
Discharge Instructions Date of Service Jan 02, 2017. Admission Reason for Admission: bronchitis, worsening COPD (emphysema), low sodium level . Discharge Discharge Diagnosis / Problem: bronchitis, worsening COPD (emphysema), low sodium level Discharge Goals Goal(s): Decrease discomfort, Improve function Activity Recommendations Activity Limitations: resume your previous activity . Instructions / Follow-Up Instructions / Follow-Up APPOINTMENTS: FAMILY MEDICINE 01/08/2017 11:20 AM Bridget Multani MD INSTRUCTIONS: New medicines- prednisone 20 mg daily for 3 days, 10 mg daily for 3 days, then stop ferrous sulfate (iron pill) 325 mg daily with lunch cyanocobalamin (vitamin B12) 1000 micrograms daily with lunch (prescriptions sent to [facility] in [place]) Too much fluid will lower your sodium level and can make you weak or confused. Limit fluids to 1500 ml (about 6 cups) a day. Please do not smoke. Nonprescription nicotine products like patches or gum can help Continue oxygen 5 liters / minute. Seek medical attention if you have: * temperature above 101 * chest pain or trouble breathing * abdominal pain, nausea, vomiting * diarrhea, dark stools or bloody stools * any unanswered questions or concerns Call 911 if symptoms are severe. Call if you have any questions or problems. My cell # is [phone]. You can also reach a [facility] hospitalist on duty at [facility] 24 hours a day by calling [phone]. Please take good care of yourself. Werner Todd . Current Hospital Diet Patient's current hospital diet: AHA Diet (Heart Healthy), Renal Diet Discharge Diet Recommended Diet: AHA Diet (Heart Healthy) Pending Studies Studies pending at discharge: no Medical Emergencies . Who to Call and When: Medical Emergencies: If at any time you feel your situation is an emergency, please call 911 immediately. . Non-Emergent Contact Non-Emergency issues call your: Primary Care Provider, Hospital Doctor . . "Provider Documentation" section prepared by Werner Todd. . VTE Core Measure Inpt VTE Proph given/why not?: Enoxaparin (Lovenox)SQ
--- NOTE | 2017-01-03 09:59 | Discharge Summary ---
Discharge Summary Date of Service Jan 03, 2017. Discharge Summary Admission Date: December 22, 2016 at 13:16 Discharge Date: Jan 02, 2017 Discharge Disposition: Home with services Principal Diagnosis: acute on chronic respiratory failure secondary to exacerbation of COPD/ tracheobronchitis . Secondary Diagnoses/Problems: Other Acute Medical Problems: hyponatremia- SIADH anemia iron deficiency B12 deficiency Chronic and Resolved Medical Problems: (1) BPH (benign prostatic hyperplasia) Status: Chronic (2) Cataract Status: Chronic (3) COPD, severe Permanent Comment: shown on PFTs 06/2013 Status: Chronic (4) GERD (gastroesophageal reflux disease) Status: Chronic (5) Glaucoma Status: Chronic (6) Hypertension Status: Chronic (7) Non-ST elevation NC (NSTEMI) Status: Resolved (8) Osteoporosis Status: Chronic (9) Pulmonary embolism Permanent Comment: in 2011, was on Coumadin for 6 months Status: Resolved (10) Rheumatoid arthritis Status: Chronic (11) Vitamin D deficiency Status: Chronic Surgical Problems: (1) H/O eye surgery Status: Resolved Social History Problems: (1) Tobacco abuse Status: Chronic . Procedures: IV meds PT OT . Pending Studies/Follow-Up: Please recheck H/H and basic metabolic profile in clinic. . Medication Reconciliation New Medications: Cyanocobalamin (Vitamin B-12) 1,000 Mcg Tab 1000 MCG PO DAILY, #30 TAB 11 Refills Take 1 pill daily with lunch. No prescription necessary. Ferrous Sulfate (Ferrous Sulfate) 325 Mg Tab 325 MG PO DAILY, #30 TAB 11 Refills Take 1 pill daily with lunch. No prescription necessary. Prednisone Tab (Prednisone) 10 Mg Tab 0 PO UD, #9 TAB 2 pills for 3 days, 1 pill for 3 days, then stop. Continued Medications: Albuterol Hfa (Ventolin Hfa) 200 Puffs/96721 Mcg Aers 2-4 PUFFS INH Q6H PRN for SOB/Wheezing, #1 INHALER Aspirin (Aspirin Ec) 81 Mg Tab 81 MG PO DAILY Atorvastatin (Lipitor) 20 Mg Tab 20 MG PO DAILY, TAB Azithromycin (Zithromax) 250 Mg Tab 250 MG PO 3XWK, #4 TAB THURSDAY,THURSDAY & THURSDAY Calcium Carbonate (Calcium 600) 600 Mg Tab 1 TAB PO DAILY + 200 mg vit-d Cholecalciferol (Vitamin D 1000 Unit) 1,000 Unit Cap 1000 INTER.UNIT PO DAILY, CAP Doxazosin Mesylate (Cardura) 4 Mg Tab 4 MG PO HS, TAB Finasteride (Proscar) 5 Mg Tab 5 MG PO DAILY, TAB Fluticasone Furoate-Vilanterol (Breo Ellipta) 1 Inh Inh 1 PUFF INH BID Furosemide (Furosemide) 20 Mg Tab 40 MG PO 3XWK Take 2 tabs 3 days per week and 1 tab all other days Furosemide (Lasix) 20 Mg Tab 20 MG PO 4XWK, TAB Hydralazine Hcl (Apresoline) 50 Mg Tab 50 MG PO BID, TAB Latanoprost (Xalatan 0.005% Oph Celia) 0.005 % Celia 1 DROPS OPB DAILY, #2.5 ML 3 Refills Levalbuterol Hcl (Levalbuterol) 1.25 Mg/0.5 Ml Neb 1 VIAL NEB Q4H PRN for SOB/Wheezing Methotrexate (Methotrexate) 2.5 Mg Tab 12.5 MG PO WK, TAB Omeprazole (Prilosec) 20 Mg Cap 20 MG PO DAILY, CAP Sulindac (Sulindac) 200 Mg Tab 200 MG PO BID Tiotropium [place] (Spiriva Handihaler) 30 Puff/540 Mcg Aerp 1 CAP INH DAILY, INHALER Admission Information HPI (per Admitting provider): Patient seen and examined. 71 year old male with PMHx of COPD with chronic hypoxic respiratory failure, CAITLIN, HTN , RA, h/o NSTEMI, CKD stage 3 and other problems listed below presents to the ED complaining of SOB x 1 month, gradually worsening. Patient reports he is having more and more difficulty breathing. It started about a month ago when he resumed smoking. He has an associated cough with occasional sputum production. Over the same period of time the patient's family has noticed that he seems to be getting more confused and fatigued. He feels generally weak. Family thought he was too weak to go to an outpatient office to be evaluated so they called EMS. Patient denies fevers, chills, dizziness, syncope, rhinorrhea, chest pain, nausea, vomiting, diarrhea, dysuria, calf pain and edema. Patient reports he started to smoke again because he is "bored." He wears 5L oxygen while smoking because "I can't breath without it." Patient was educated on the dangers of this and extensive time was spent educating patient on smoking cessation. In the ED VS are stable, he is saturating well on 5L, CXR is negative for acute findings, WBC count is 9.7. Na + is 125. He received IVFs and duonebs enroute to the hospital. He received Solu -medrol in the ED. He will be admitted for further workup and treatment. . Physical Exam (per Admitting): General Appearance: + pertinent finding (WD/WN 71 year old male lying in bed in NAD with family at bedside ) Head: normocephalic, atraumatic Eyes: PERRL, EOMI, sclerae normal ENT: hearing grossly normal, pharynx normal Neck: supple, no JVD Respiratory/Chest: chest non-tender, + pertinent finding (very poor air entry, decreased breath sounds) Cardiovascular: regular rate, rhythm, no edema, no gallop, no JVD, no murmur , normal peripheral pulses Abdomen/GI: normal bowel sounds, non tender, soft Back: normal inspection, no muscle spasm Extremities/Musculoskelatal: no calf tenderness, normal capillary refill, no pedal edema, + pertinent finding (scabbing BL shins appear to be healing well , no signs of infection ) Neurologic/Psych: alert, oriented x 3, + pertinent finding (nonfocal ) Skin: normal color, warm/dry, no rash Lymphatic: no adenopathy Hospital Course ACUTE ON CHRONIC RESPIRATORY FAILURE Secondary to tracheobronchitis. Received doxycycline, steroids, nebs with improvement. Discharge on prednisone to complete taper. CHF Right-sided CHF / cor pulmonale due to underlying pulmonary disease. Continue furosemide. HYPERTENSION Continue hydralazine. HYPONATREMIA Serum sodium at time of admission was 125. Hyponatremia secondary to SIADH. Fluid restriction of 1500 mL recommended. Serum on 01/01 was 137. HYPERKALEMIA Serum K as high as 5.4. Resolved. Low K diet. Potassium on 01/01 was 4.1. Follow. ANEMIA Hgb 14 at time of admission. Hemoglobin fell as low as 8.8. No gross signs of GI bleeding. Normocytic. Serum iron 21, transferrin saturation 21%, B12 176, folate normal. Stool specimen for occult blood ordered. Hemoglobin today stable at 9.8. The patient takes sulindac or his inflammatory arthritis. Continue PPI. Discharge on ferrous sulfate and vitamin B12 supplementation. Follow H/H. Check follow-up iron levels and B12 levels in clinic to assure adequate replacement. RHEUMATOID ARTHRITIS Continue sulindac and methotrexate. VENOUS STASIS ULCERS LLE Improved. Continue local care. Follow-up with Wound Clinic. SMOKING Importance of smoking cessation discussed at length. Specifically, has been smoking with home O2 emphasized. VTE PROPHYLAXIS SQ enoxaparin. Ambulate. DISPOSITION Case Management consulted. Arrangements made for discharge to home with home health services. Family Medicine follow-up with Dr. Multani. . Total time spent on discharge = 40 min. This includes examination of the patient, discharge planning, medication reconciliation, and communication with other providers. . Discharge Instructions Date of Service Jan 02, 2017. Admission Reason for Admission: bronchitis, worsening COPD (emphysema), low sodium level . Discharge Discharge Diagnosis / Problem: bronchitis, worsening COPD (emphysema), low sodium level Discharge Goals Goal(s): Decrease discomfort, Improve function Activity Recommendations Activity Limitations: resume your previous activity . Instructions / Follow-Up Instructions / Follow-Up APPOINTMENTS: FAMILY MEDICINE 01/08/2017 11:20 AM Bridget Multani MD INSTRUCTIONS: New medicines- prednisone 20 mg daily for 3 days, 10 mg daily for 3 days, then stop ferrous sulfate (iron pill) 325 mg daily with lunch cyanocobalamin (vitamin B12) 1000 micrograms daily with lunch (prescriptions sent to [facility] in [place]) Too much fluid will lower your sodium level and can make you weak or confused. Limit fluids to 1500 ml (about 6 cups) a day. Please do not smoke. Nonprescription nicotine products like patches or gum can help Continue oxygen 5 liters / minute. Seek medical attention if you have: * temperature above 101 * chest pain or trouble breathing * abdominal pain, nausea, vomiting * diarrhea, dark stools or bloody stools * any unanswered questions or concerns Call 911 if symptoms are severe. Call if you have any questions or problems. My cell # is [phone]. You can also reach a [facility] hospitalist on duty at [facility] 24 hours a day by calling [phone]. Please take good care of yourself. Werner Todd . Current Hospital Diet Patient's current hospital diet: AHA Diet (Heart Healthy), Renal Diet Discharge Diet Recommended Diet: AHA Diet (Heart Healthy) Pending Studies Studies pending at discharge: no Medical Emergencies . Who to Call and When: Medical Emergencies: If at any time you feel your situation is an emergency, please call 911 immediately. . Non-Emergent Contact Non-Emergency issues call your: Primary Care Provider, Hospital Doctor . . "Provider Documentation" section prepared by Werner Todd. . VTE Core Measure Inpt VTE Proph given/why not?: Enoxaparin (Lovenox)SQ . Additional Copies To Bridget Multani M.D. (MEDICAL)
[2017-01-26] MEDS ORDERED: LEVA1.255 NEB (10:28)
[2017-01-26] MEDS ORDERED: AZIT250T PO (10:28)
[2017-01-26] MEDS ORDERED: SPRIN/30 INH (10:28)
[2017-01-26] MEDS ORDERED: CLN200 PO (10:28)
[2017-01-26] MEDS ORDERED: VNTHFA/IN INH (10:28)
[2017-01-26] MEDS ORDERED: LATA0.5S OPB (10:28)
[2017-01-26] MEDS ORDERED: METH2.5T PO (11:06)
[2017-01-26] MEDS ORDERED: LSX20 PO (13:50)
[2017-02-01] MEDS ORDERED: ARFO15NE NEB (09:13)
[2017-02-01] MEDS ORDERED: PRED20TA2 PO (09:13)
[2017-02-01] MEDS ORDERED: IPRASOL4 INH (09:13)
[2017-02-01] MEDS ORDERED: NEBMAC (09:15)
== END 2017-01-02 12:35 | disposition home health service (06) | DRG 190 ==
LOC: ENRESERVDT → ENRESERVTM → EDBD 10:05 → C.EDA 10:07 → C.MED 13:16
PROVIDERS: ADMIT Hospitalist; ATTEND Hospitalist
DX: J44.1 Chronic obstructive pulmonary disease with (acute) exacerbation (principal); J96.21 Acute and chronic respiratory failure with hypoxia; E22.2 Syndrome of inappropriate secretion of antidiuretic hormone; L97.909 Non-pressure chronic ulcer of unspecified part of unspecified lower leg with unspecified severity; F17.200 Nicotine dependence, unspecified, uncomplicated; N40.0 Benign prostatic hyperplasia without lower urinary tract symptoms; K21.9 Gastro-esophageal reflux disease without esophagitis; I10 Essential (primary) hypertension; H40.9 Unspecified glaucoma; I25.2 Old myocardial infarction; M81.0 Age-related osteoporosis without current pathological fracture; G47.33 Obstructive sleep apnea (adult) (pediatric); N18.3 Chronic kidney disease, stage 3 (moderate); M06.9 Rheumatoid arthritis, unspecified; E55.9 Vitamin D deficiency, unspecified; I87.2 Venous insufficiency (chronic) (peripheral); E61.1 Iron deficiency; E53.8 Deficiency of other specified B group vitamins; E87.5 Hyperkalemia; Z99.81 Dependence on supplemental oxygen; Z86.711 Personal history of pulmonary embolism

== ENCOUNTER 2017-01-26 16:22 | Inpatient (IN) | payer OTHER ==
[~2017-01-26] VITALS: Ht 167.6 cm; Wt 91.9 kg
[2017-01-26] VITALS (9 sets, daily range): BP systolic 107–112; BP diastolic 68–69; PULSE 90–107; TEMP 37.1; O2SAT 96–100; Ht 167.6 cm; Wt 91.9 kg
[~2017-01-26 16:22] MED LIST changes: -ALBUAER2 INH; +AZIT250T PO; +CLN200 PO; +CYAN10005 PO; +FERR325T5 PO; -FLV1 PO; +LATA0.5S OPB; -LEVA1.25 INH; +LEVA1.255 NEB; +LSX20 PO; +METH2.5T PO; +OMEP20CA9 PO; +PRED10TA PO; -PRLSR20 PO; +SPRIN/30 INH; -SULI200T PO; -TIMO0.05 OPB; -TRAM-10 PO; +VNTHFA/IN INH
[2017-01-26] MEDS ORDERED: METHYLPREDNISOLONE 125 MG VIAL IV STA (16:34)
[2017-01-26] MEDS ORDERED: ALBUT/IPRATROP 3MG/0.5MG NEB 3 ML VIAL INH ONE (16:45)
[2017-01-26] MEDS ORDERED: CHOL2000 PO (17:45)
[2017-01-26] MEDS ORDERED: DOXY100C2 PO (17:45)
[2017-01-26] MEDS ORDERED: CALC600T9 PO (17:45)
[2017-01-26] MEDS ORDERED: FERR325T5 PO (17:45)
[2017-01-26] MEDS ORDERED: FOLI800T PO (17:45)
--- NOTE | 2017-01-26 17:47 | DIAGNOSTIC IMAGING REPORT ---
CHEST ONE VIEW PORTABLE HISTORY: Short of breath. COMPARISON: Chest 12/25/2016. FINDINGS: The heart remains mildly enlarged. There are low lung volumes. Mild emphysema. Chronic interstitial thickening and bibasilar densities are not significantly changed. Stable bilateral hilar prominence which may be due to the dilated central pulmonary arteries. IMPRESSION: No change in the bibasilar densities. This may represent atelectasis or pneumonia. Electronically signed by: Charlie Purvis M.D. 01/26/2017 5:45 PM Dictated Date/Time: 01/26/2017 5:44 PM
[2017-01-26] MEDS ORDERED: CYAN100020 PO (17:51)
[2017-01-26 17:56] LABS: PROTHROMBIN TIME (PATIENT) 10.6 SECONDS (9.0-12.0)
[2017-01-26 18:08] LABS: HEMATOCRIT 42.1 % (42-52); MEAN CELL VOLUME 92.7 fL (80-100); MEAN CORPUSCULAR HEMOGLOBIN 26.4 pg (25-34); MEAN CORPUSCULAR HGB CONC 28.5 g/dl (32-36); MEAN PLATELET VOLUME 9.1 fL (7.4-10.4); PLATELET COUNT 363 K/uL (130-400); RED BLOOD COUNT 4.54 M/uL (4.7-6.1); WHITE BLOOD COUNT 8.74 K/uL (4.8-10.8)
[2017-01-26 18:21] LABS: BASO % 0.5 %; BASO ABS # 0.04 K/uL (0-0.2); COMPLETE YES; EOS % 1.7 %; LYMPH % 14.5 %; LYMPH ABS # 1.27 K/uL (1.2-3.4); NEUT % 73.3 %
[2017-01-26 18:30] LABS: POTASSIUM 4.7 mmol/L (3.5-5.1)
[2017-01-26 18:32] LABS: BUN/CREATININE RATIO 13.3 (10-20); CALCIUM 9.1 mg/dl (8.5-10.1); CREATININE 1.2 mg/dl (0.60-1.40)
--- NOTE | 2017-01-26 19:24 | History and Physical ---
History & Physical Date & Time of Service: Jan 26, 2017 at 19:24 Chief Complaint: Sob, Chills Primary Care Physician: Bridget Multani M.D. (MEDICAL) History of Present Illness Source: hospital records, EMS This is a 71 Yo M with past medical hx of severe advanced COPD on 5 L home 02 / chronic hypoxemic respiratory failure , CAITLIN , non compliant with CPAP , HTN , Rheumatoid arthritis, CKD stage 3 , CAD hx of remote NSTEMI sent to ED by - called 911 as pt was very SOB , lethargic at home for past few days -symptom got worse today . Information obtained form ER physician and Daughter Poppy Richards on phone - as pt remained pretty lethargic on Bipap , minimally responsive Per Daughter -pt was discharged form [facility] on 01/02/17 with similar scenario- COPD exacerbation , difficulty breathing , generalized weakness , refused to go to SNF his condition has not improved since discharge -has been sleeping through the day mostly , not taking any of his meds , not using CPAP continued to smoke when he gets up -while on 5 L 02 Family has been very frustrated with him today -pt started to having uncontrolled shaking, barely can talk , called 911 per ER physician -pt was arousable upon arrival , given 1 hr long neb tx /Solu medrol 125 mg X1 later he became very lethergic -pt was put on Bipap ABG ordered -result was still pending -during my interview pt was able to move his limbs spontaneously wakes up briefly with sternal rub -when asking -if he is having any shortness of breath -" no I do not " was the answer was hypoxic on arrival SPo2 improved to 90 % with Bipap Past Medical/Surgical History Medical Problems: (1) BPH (benign prostatic hyperplasia) Status: Chronic (2) Cataract Status: Chronic (3) COPD, moderate Permanent Comment: shown on PFTs 06/2013 Status: Chronic (4) GERD (gastroesophageal reflux disease) Status: Chronic (5) Glaucoma Status: Chronic (6) Hypertension Status: Chronic (7) Non-ST elevation IN (NSTEMI) Status: Resolved (8) Osteoporosis Status: Chronic (9) Pulmonary embolism Permanent Comment: in 2011, was on Coumadin for 6 months Status: Resolved (10) Rheumatoid arthritis Status: Chronic (11) Vitamin D deficiency Status: Chronic Surgical Problems: (1) H/O eye surgery Status: Resolved Social History Problems: (1) Tobacco abuse Status: Chronic Family History Aneurysm FATHER Diabetes mellitus GRANDMOTHER Social History Smoking Status: Current Every Day Smoker Drug Use: none Marital Status: Housing status: lives with family Occupational Status: retired Immunizations History of Influenza Vaccine: Yes Influenza Vaccine Date: Apr 27, 2013 History of Tetanus Vaccine?: Yes Tetanus Immunization Date: May 03, 1993 History of Pneumococcal: Yes Pneumococcal Date: Aug 21, 2005 History of Hepatitis B Vaccine: Unknown Multi-Drug Resistant Organisms History of MDRO: No Allergies Coded Allergies: No Known Allergies (Unverified , 05/21/16) Home Medications Scheduled Atorvastatin (Lipitor), 20 MG PO QAM Azithromycin (Zithromax), 250 MG PO 3XWK Calcium Carbonate-Vitamin D (Calcium + D), 1 TAB PO DAILY Cholecalciferol (Vitamin D3), 2,000 INTER.UNIT PO DAILY Cyanocobalamin (Vitamin B12), 1,000 MCG PO DAILY Doxazosin Mesylate (Cardura), 4 MG PO HS Ferrous Sulfate (Ferrous Sulfate), 325 MG PO DAILY Finasteride (Proscar), 5 MG PO QAM Fluticasone Furoate-Vilanterol (Breo Ellipta), 1 PUFF INH DAILY Folic Acid (Folic Acid), 80 MCG PO 6XWK Furosemide (Furosemide), 40 MG PO 3XWK Furosemide (Lasix), 20 MG PO 4XWK Hydralazine Hcl (Apresoline), 50 MG PO BID Latanoprost (Xalatan 0.005% Oph Celia), 1 DROP OPB DAILY Methotrexate (Methotrexate), 12.5 MG PO WK Sulindac (Sulindac), 200 MG PO BID Tiotropium [place] (Spiriva Handihaler), 1 CAP INH DAILY Scheduled PRN Albuterol Hfa (Ventolin Hfa), 2 PUFFS INH Q6H PRN for SOB/Wheezing Doxycycline Hyclate (Vibramycin), 100 MG PO BID PRN for Rescue Kit Levalbuterol Hcl (Levalbuterol), 1 VIAL NEB Q4H PRN for Wheezing Review of Systems Unable to obtain due to pt's condition /lethargy Physical Exam Vital Signs Date Time Temp Pulse Resp B/P (MAP) Pulse Ox O2 Delivery O2 Flow Rate FiO2 01/26/17 19:12 103 22 126/73 99 BiPAP 01/26/17 18:47 107 100 01/26/17 17:58 105 22 184/91 100 Room Air 01/26/17 16:52 96 Nasal Cannula 5.0 01/26/17 16:44 99 20 100 Nasal Cannula 6.0 01/26/17 16:42 96 Nasal Cannula 5.0 01/26/17 16:41 100 01/26/17 16:36 Nasal Cannula 5.0 98 01/26/17 16:36 36.7 103 22 109/66 98 Nasal Cannula 5.0 General Appearance: + pertinent finding (chronically ill appearing , obtunded ) Eyes: + pertinent finding (sclera injected ) Respiratory/Chest: + respiratory distress, + decreased breath sounds, + wheezing Cardiovascular: + tachycardia Abdomen/GI: soft Extremities/Musculoskelatal: no pedal edema Neurologic/Psych: + disoriented, + pertinent finding (letehrgic ) Diagnostics Laboratory Results Results Past 24 Hours Test 01/26/17 17:30 01/26/17 17:42 01/26/17 18:39 01/26/17 19:02 Range/Units White Blood Count 8.74 4.8-10.8 K/uL Red Blood Count 4.54 4.7-6.1 M/uL Hemoglobin 12.0 14.0-18.0 g/dL Hematocrit 42.1 42-52 % Mean Corpuscular Volume 92.7 80-100 fL Mean Corpuscular Hemoglobin 26.4 25-34 pg Mean Corpuscular Hemoglobin Concent 28.5 32-36 g/dl Platelet Count 363 130-400 K/uL Mean Platelet Volume 9.1 7.4-10.4 fL Neutrophils (%) (Auto) 73.3 % Lymphocytes (%) (Auto) 14.5 % Monocytes (%) (Auto) 9.0 % Eosinophils (%) (Auto) 1.7 % Basophils (%) (Auto) 0.5 % Neutrophils # (Auto) 6.40 1.4-6.5 K/uL Lymphocytes # (Auto) 1.27 1.2-3.4 K/uL Monocytes # (Auto) 0.79 0.11-0.59 K/uL Eosinophils # (Auto) 0.15 0-0.5 K/uL Basophils # (Auto) 0.04 0-0.2 K/uL RDW Standard Deviation 54.5 36.4-46.3 fL RDW Coefficient of Variation 16.1 11.5-14.5 % Immature Granulocyte % (Auto) 1.0 % Immature Granulocyte # (Auto) 0.09 0.00-0.02 K/uL Red Blood Cell Morphology Unremarkable Prothrombin Time 10.6 9.0-12.0 SECONDS Prothromb Time International Ratio 1.0 0.9-1.1 Activated Partial Thromboplast Time 25.9 21.0-31.0 SECONDS Partial Thromboplastin Ratio 1.0 Sodium Level 140 136-145 mmol/L Potassium Level 4.7 3.5-5.1 mmol/L Chloride Level 99 98-107 mmol/L Carbon Dioxide Level 35 21-32 mmol/L Anion Gap 6.0 3-11 mmol/L Blood Urea Nitrogen 16 7-18 mg/dl Creatinine 1.20 0.60-1.40 mg/dl Est Creatinine Clear Calc Drug Dose 55.0 ml/min Estimated GFR () 69.1 Estimated GFR (Non- 59.6 BUN/Creatinine Ratio 13.3 10-20 Random Glucose 104 70-99 mg/dl Calcium Level 9.1 8.5-10.1 mg/dl Bedside Troponin I < 0.030 0-0.045 ng/ml Bedside Glucose 123 70-99 mg/dl Microbiology Results 01/26/17 Blood Culture, Received Pending 01/26/17 Blood Culture, Received Pending Diagnostic Radiology CHEST ONE VIEW PORTABLE HISTORY: Short of breath. COMPARISON: Chest 12/25/2016. FINDINGS: The heart remains mildly enlarged. There are low lung volumes. Mild emphysema. Chronic interstitial thickening and bibasilar densities are not significantly changed. Stable bilateral hilar prominence which may be due to the dilated central pulmonary arteries. IMPRESSION: No change in the bibasilar densities. This may represent atelectasis or pneumonia. Impression Assessment and Plan ACUTE ON CHRONIC HYPOXEMIC RESPIRATORY FAILURE : due to COPD exacerbation hx of advanced COPD , poorly complaint , ongoing smoking placed on Bipap in ED will continue Bipap follow ABG cont IV Solu -Medrol , Schedule Neb tx monitor in tele Pulmonology eval requested empiric Abx with Rocephin /Zithromax reports of chronic cough with sputum check sputum gram stain and culture LETHARGY/ALTERED MENTAL STATUS : possible metabolic encephalopathy due to respiratory failure /CO 2 retention / ABG report till pending pt started to wake up after being on Bipap for some time no sign of infection Cxray -bibasilar atelectasis , no infiltrate ordered for [place]olson -UA cath specimen ( reports of shaking /chills at home ) cont on Bipap monitor pt will be kept NPO till awake and alert to prevent aspiration HTN : BP stable cont Hydralazine MEDICATION NON COMPLIANCE has been an ongoing issue family has been very frustrated with pt's care social service consul requested will need SNF-when medially appropriate -significant deconditioning CAITLIN/NON COMPLIANT WITH CPAP was ordered for CPAP 12-18 with 4 L 02 at night has not been using -as per daughter pt is currently will remain on BiPAP for respiratory failure TOBACCO ABUSE DISORDER : continues to smoke smoking cessation counselling provided multiple times in last admission pt is on 5 L home 02 will continue to corporate travel counselor as pt becomes awake and oriented RA: hold MTX for acute illness cont Folic acid CODE STATUS : d/w Daughter Poppy Richards -pt does not have Living will or advance directive on process to delegate POA to Daughter Poppy mentions that her father mentions multiple time never wanted any life support / no mechanical ventilation /no shock or chest compression Pt also in agreement for DNR status pt is DNR /DNI as per D/w family pt advocate will be consulted to assist family and pt for advance directive DVT PROPHYLAXIS : Moderate to high risk sub q heparin DISPOSITION ; doing very poorly at home will benefit with SNF when medically stable PT/OT eval requested social service consulted for discharge planning Medicine follow up with Dr Edi Multani at [facility] Level of Care Telemetry Resuscitation Status DO NOT RESUSCITATE VTE Prophylaxis VTE Risk Assessment Done? Y/N: Yes Risk Level: Moderate Given or contraindicated: Unfractionated heparin SQ Additional Copies To Bridget Multani M.D. (MEDICAL)
[2017-01-26] MEDS ORDERED: ONDANSETRON INJ 2 MG/ML 2 ML VIAL IV PRN (19:30)
[2017-01-26] MEDS ORDERED: FOLIC ACID PO SCH (19:30)
[2017-01-26] MEDS ORDERED: POLYETHYLENE (MIRALAX) 17 GM PACK PO PRN (19:30)
[2017-01-26] MEDS ORDERED: ACETAMINOPHEN 325 MG TAB PO PRN (19:30)
[2017-01-26] MEDS ORDERED: ALBUTEROL HFA 8 GM INHALER INH PRN (19:30)
[2017-01-26] MEDS ORDERED: ALUMINUM/MAGNESIUM/SIMETH (MAALOX MAX) 30 ML UDC PO PRN (19:30)
[2017-01-26] MEDS ORDERED: MAGNESIUM HYDROXIDE SUSP 30 ML UDC PO PRN (19:30)
[2017-01-26 19:42] LABS: ARTERIAL BLD GAS O2 SATURATION 97.7 % (90-95); ARTERIAL BLOOD GAS BASE EXCESS 4.9 mEq/L (-9-1.8); ARTERIAL BLOOD GAS HCO3 33 mmol/L (19-24); ARTERIAL BLOOD GAS PO2 122 mm/Hg (80-95); ARTERIAL BLOOD GAS pH 7.28 (7.35-7.45)
[2017-01-26 19:43] LABS: ALLEN TEST POS (POS); O2 ADMINISTRATION 60%
--- NOTE | 2017-01-26 19:54 | EMERGENCY ROOM VISIT NOTE ---
History Report prepared by Jennifer: Clarisse Cortez Under the Supervision of: Dr. Isacc Mann M.D. First contact with patient: 16:27 Stated Complaint: SOB, CHILLS History of Present Illness The patient is a 71 year old male who presents to the Emergency Room with complaints of worsening shortness of breath beginning CAN FEEDER. Per nursing staff, the patient has been refusing to take his medications. His has been unable to get him to be compliant with his medications. She called his PCP today and they advised her to bring the patient to the ED for further evaluation. The patient's called an ambulance without informing the patient. He does not want to be here. The patient notes shortness of breath and a non-productive cough. He denies fevers and chest pain. He denies any pain. The patient wears 5L of oxygen at all times. The HPI is limited due to the patient being a poor historian. Source of History: patient, long term notes, EMS History Limited By: other (poor historian) Onset: CAN FEEDER Position: chest (respiratory) Quality: other (shortness of breath) Timing: worsening Modifying Factors (Worsening): other (medication noncompliance) Associated Symptoms: + cough, No fevers, No chest pain Review of Systems The ROS is limited due to the patient being a poor historian. Past Medical & Surgical Medical Problems: (1) BPH (benign prostatic hyperplasia) (2) Cataract (3) COPD exacerbation (4) COPD, moderate (5) GERD (gastroesophageal reflux disease) (6) Glaucoma (7) Hypertension (8) Non-ST elevation PR (NSTEMI) (9) Osteoporosis (10) Pulmonary embolism (11) Rheumatoid arthritis (12) Vitamin D deficiency Surgical Problems: (1) H/O eye surgery Social History Problems: (1) Tobacco abuse Family History Aneurysm FATHER Diabetes mellitus GRANDMOTHER Social History Smoking Status: Current Every Day Smoker Alcohol Use: none Drug Use: none Marital Status: Housing Status: lives with significant other Occupation Status: retired Current/Historical Medications Scheduled Atorvastatin (Lipitor), 20 MG PO QAM Azithromycin (Zithromax), 250 MG PO 3XWK Calcium Carbonate-Vitamin D (Calcium + D), 1 TAB PO DAILY Cholecalciferol (Vitamin D3), 2,000 INTER.UNIT PO DAILY Cyanocobalamin (Vitamin B12), 1,000 MCG PO DAILY Doxazosin Mesylate (Cardura), 4 MG PO HS Ferrous Sulfate (Ferrous Sulfate), 325 MG PO DAILY Finasteride (Proscar), 5 MG PO QAM Fluticasone Furoate-Vilanterol (Breo Ellipta), 1 PUFF INH DAILY Folic Acid (Folic Acid), 80 MCG PO 6XWK Furosemide (Furosemide), 40 MG PO 3XWK Furosemide (Lasix), 20 MG PO 4XWK Hydralazine Hcl (Apresoline), 50 MG PO BID Latanoprost (Xalatan 0.005% Oph Celia), 1 DROP OPB DAILY Methotrexate (Methotrexate), 12.5 MG PO WK Sulindac (Sulindac), 200 MG PO BID Tiotropium Newton (Spiriva Handihaler), 1 CAP INH DAILY Scheduled PRN Albuterol Hfa (Ventolin Hfa), 2 PUFFS INH Q6H PRN for SOB/Wheezing Doxycycline Hyclate (Vibramycin), 100 MG PO BID PRN for Rescue Kit Levalbuterol Hcl (Levalbuterol), 1 VIAL NEB Q4H PRN for Wheezing Allergies Coded Allergies: No Known Allergies (Unverified , 05/21/16) Physical Exam Vital Signs Date Time Temp Pulse Resp B/P (MAP) Pulse Ox O2 Delivery O2 Flow Rate FiO2 01/26/17 19:12 103 22 126/73 99 BiPAP 01/26/17 18:47 107 100 01/26/17 17:58 105 22 184/91 100 Room Air 01/26/17 16:52 96 Nasal Cannula 5.0 01/26/17 16:44 99 20 100 Nasal Cannula 6.0 01/26/17 16:42 96 Nasal Cannula 5.0 01/26/17 16:41 100 01/26/17 16:36 Nasal Cannula 5.0 98 01/26/17 16:36 36.7 103 22 109/66 98 Nasal Cannula 5.0 Physical Exam Constitutional: Vital signs reviewed. Eyes: Pupils are equal round reactive to light. Conjunctiva are noninjected. ENT: Pharynx is clear without erythema or exudate. Mucous membranes are dry. Neck supple without meningeal signs. Respiratory: Diffuse wheezing bilaterally.Breath sounds are equal bilaterally. Retractions. Cardiovascular: Regular rate and rhythm. No rubs or gallops. GI: Soft, nondistended and nontender. Bowel sounds are present. Musculoskeletal: No peripheral edema. No lower extremity tenderness. Integumentary: No cyanosis. Neurological: The patient is awake and alert. No focal deficits. Psychiatric: Unable to assess. Medical Decision & Procedures ER Provider Diagnostic Interpretation: Radiology results as stated below per my review and the radiologist's interpretation: CHEST ONE VIEW PORTABLE HISTORY: Short of breath. COMPARISON: Chest 12/25/2016. FINDINGS: The heart remains mildly enlarged. There are low lung volumes. Mild emphysema. Chronic interstitial thickening and bibasilar densities are not significantly changed. Stable bilateral hilar prominence which may be due to the dilated central pulmonary arteries. IMPRESSION: No change in the bibasilar densities. This may represent atelectasis or pneumonia. Electronically signed by: Charlie Purvis M.D. 01/26/2017 5:45 PM Dictated Date/Time: 01/26/2017 5:44 PM Laboratory Results 01/26/17 17:30 Red Blood Count 4.54, Mean Corpuscular Volume 92.7, Mean Corpuscular Hemoglobin 26.4, Mean Corpuscular Hemoglobin Concent 28.5, Mean Platelet Volume 9.1, Neutrophils (%) (Auto) 73.3, Lymphocytes (%) (Auto) 14.5, Monocytes (%) (Auto) 9.0, Eosinophils (%) (Auto) 1.7, Basophils (%) (Auto) 0.5, Neutrophils # (Auto) 6.40, Lymphocytes # (Auto) 1.27, Monocytes # (Auto) 0.79, Eosinophils # (Auto) 0.15, Basophils # (Auto) 0.04 01/26/17 17:30 Test 01/26/17 17:30 01/26/17 17:42 01/26/17 19:02 01/26/17 19:24 White Blood Count 8.74 K/uL (4.8-10.8) Red Blood Count 4.54 M/uL (4.7-6.1) Hemoglobin 12.0 g/dL (14.0-18.0) Hematocrit 42.1 % (42-52) Mean Corpuscular Volume 92.7 fL (80-100) Mean Corpuscular Hemoglobin 26.4 pg (25-34) Mean Corpuscular Hemoglobin Concent 28.5 g/dl (32-36) Platelet Count 363 K/uL (130-400) Mean Platelet Volume 9.1 fL (7.4-10.4) Neutrophils (%) (Auto) 73.3 % Lymphocytes (%) (Auto) 14.5 % Monocytes (%) (Auto) 9.0 % Eosinophils (%) (Auto) 1.7 % Basophils (%) (Auto) 0.5 % Neutrophils # (Auto) 6.40 K/uL (1.4-6.5) Lymphocytes # (Auto) 1.27 K/uL (1.2-3.4) Monocytes # (Auto) 0.79 K/uL (0.11-0.59) Eosinophils # (Auto) 0.15 K/uL (0-0.5) Basophils # (Auto) 0.04 K/uL (0-0.2) RDW Standard Deviation 54.5 fL (36.4-46.3) RDW Coefficient of Variation 16.1 % (11.5-14.5) Immature Granulocyte % (Auto) 1.0 % Immature Granulocyte # (Auto) 0.09 K/uL (0.00-0.02) Red Blood Cell Morphology Unremarkable Prothrombin Time 10.6 SECONDS (9.0-12.0) Prothromb Time International Ratio 1.0 (0.9-1.1) Activated Partial Thromboplast Time 25.9 SECONDS (21.0-31.0) Partial Thromboplastin Ratio 1.0 Anion Gap 6.0 mmol/L (3-11) Est Creatinine Clear Calc Drug Dose 55.0 ml/min Estimated GFR () 69.1 Estimated GFR (Non- 59.6 BUN/Creatinine Ratio 13.3 (10-20) Calcium Level 9.1 mg/dl (8.5-10.1) Bedside Troponin I < 0.030 ng/ml (0-0.045) Bedside Glucose 123 mg/dl (70-99) Arterial Blood pH 7.28 (7.35-7.45) Arterial Blood Partial Pressure CO2 72 mmHg (35-46) Arterial Blood Partial Pressure O2 122 mm/Hg (80-95) Arterial Blood HCO3 33 mmol/L (19-24) Arterial Blood Oxygen Saturation 97.7 % (90-95) Arterial Blood Base Excess 4.9 mEq/L (-9-1.8) Arterial Blood Gas Delivery 60% Henry Test POS (POS) Laboratory results as reviewed by me. Medications Administered Medications (Trade) Dose Ordered Sig/Jono Route Start Time Stop Time Status Last Admin Dose Admin Methylprednisolone Sodium Succinate (Solu-Medrol IV) 125 mg NOW STAT IV 01/26/17 16:34 01/26/17 16:36 DC 01/26/17 16:34 125 MG Albuterol/ Ipratropium (Duoneb) 12 ml ONE ONCE INH 01/26/17 16:45 01/26/17 16:46 DC 01/26/17 16:44 12 ML ECG Indication: SOB/dyspnea Rate (beats per minute): 97 Rhythm: sinus rhythm Findings: PVC, other (significant baseline artifact limiting interpretation) ED Course 1626: The patient was evaluated in room B12B. A complete history and physical exam was performed. 163: Solu-Medrol 125 mg IV 1645: Duoneb 12 ml INH 1817: I reassessed the patient and he is still wheezing. I updated him on the results. I answered all pertaining questions that he had. He expressed understanding and verbalized agreement. 1838: The patient is more somnolent at this time. 1840: I spoke with Dr. Burroughs. We discussed the patient's results and treatment plan. The patient will be evaluated by the [facility] for further management. 184: I reassessed the patient. Respiratory is in the room. They tried suctioning without much success. They are placing the patient on BiPAP now. He is more verbally responsive at this time. 1900: The patient is on BiPAP. He is still somnolent. He responded to sternal rub. When asked to wake up, the patient shouted, "I don't want to wake up." Hospitalist is at the bedside. ABG is pending. Medical Decision This is a 71-year-old male who presents with shortness of breath and cough. Differential diagnosis includes COPD exacerbation, respiratory failure, hypercapnia, pneumonia, bronchitis, pleural effusion. I did perform a limited focused review of portions of the patient's old chart on the electronic medical record. The patient was admitted December 22 for acute on chronic respiratory failure secondary to COPD. He also has anemia and hyponatremia. He was discharged on prednisone. Medication Reconciliation: I attest that I have personally reviewed the patient' s current medication list. Blood Pressure Screening: Patient was found to have normal blood pressure on screening and does not require follow-up. I did evaluate the patient as noted above. The patient is in a straight distress. IV access was established. The patient was placed on a continuous personal care worker. I did treat the patient with a continuous hour-long DuoNeb. He was also given Solu-Medrol IV. I did order and personally review the patient 's 12-lead EKG and chest x-ray as described above. He has bibasilar atelectasis on his chest x-ray which is unchanged from prior. I did order and review the patient's blood work as noted in the electronic medical record. His white blood cell count is not elevated. Troponin is negative. I did reassess the patient multiple times. He seemed to have a decline in his mental status, although he was responsive with sternal rub. He did yell to be left alone several times. I did put him on BiPAP and ordered an ABG. He does have respiratory acidosis with hypercarbia. He did seem to improve clinically and did not require intubation. He was more verbal according to nurse. He was admitted upstairs. Consults Time Called: 1835 Consulting Physician: Dr. Burroughs Returned Call: [address] Burroughs. We discussed the patient's results and treatment plan. [facility] Impression Primary Impression: Respiratory failure Additional Impression: Acute exacerbation of chronic obstructive pulmonary disease (COPD) Critical Care I have personally spent 35 minutes of critical care time in the direct management of this patient. This includes bedside care, interpretation of diagnostic studies, and testing, discussion with consultants, patient, and family members, and other required patient management activities. This 35 minutes is in excess of all separately billable procedures. Scribe Attestation The scribe's documentation has been prepared under my direct and personally reviewed by me in its entirety. I confirm that the note above accurately reflects all work, treatment, procedures, and medical decision making performed by me. Departure Information Dispostion Being Evaluated By Hospitalist Referrals Bridget Multani M.D. (MEDICAL) (PCP) Problem Qualifiers Primary Impression: Respiratory failure Chronicity: acute on chronic Respiratory failure complication: hypercapnia Qualified Codes: J96.22 - Acute and chronic respiratory failure with hypercapnia
[2017-01-26] MEDS ORDERED: LEVALBUTEROL/IPRATROPIUM NEB INH SCH (20:00)
[2017-01-26 20:16] LABS: URINE APPEARANCE CLOUDY (CLEAR); URINE COLOR DK YELLOW; URINE EPITHELIAL CELL AUTO 0-5 /lpf (0-5); URINE NITRITE POS (NEG); URINE PH 5.5 (4.5-7.5); URINE SPECIFIC GRAVITY 1.024 (1.000-1.030); UROBILINOGEN NEG (NEG); ZZURINE CULT IF INDIC CATH YES
[2017-01-26 20:20] LABS: MANUAL MICROSCOPIC REQUIRED? NO; REVIEW REQ? NO
[2017-01-26 20:21] LABS: URINE BILIRUBIN NEG (NEG)
[2017-01-26] MEDS ORDERED: IPRATROPIUM BROMIDE NEB SOLN 0.02% 2.5 ML VIAL INH PRN (20:30)
[2017-01-26] MEDS ORDERED: LEVALBUTEROL 1.25MG/0.5ML NEB INH PRN (20:30)
[2017-01-26] MEDS ORDERED: CEFTRIAXONE SOD INJ 1 GM in DEXTROSE 5% ADD-VANTAGE 50ML 50 ML IV SCH (20:30)
[2017-01-26] MEDS: LEVALBUTEROL 1.25MG/0.5ML NEB INH SCH ×2 (20:36→23:08)
[2017-01-26] MEDS: IPRATROPIUM BROMIDE NEB SOLN 0.02% 2.5 ML VIAL INH SCH ×2 (20:37→23:08)
[2017-01-26] MEDS: DOXAZosin MESYLATE TAB 4 MG TAB PO SCH (20:58)
[2017-01-26] MEDS ORDERED: AZITHROMYCIN IV 500 MG in DEXTROSE 5% 250ML 250 ML IV SCH (21:00)
[2017-01-26] MEDS: METHYLPREDNISOLONE IV 80 MG in SYRINGE 0 ML IV SCH (21:07)
[2017-01-26] MEDS ORDERED: FURO-85 PO (21:17)
[2017-01-26] MEDS ORDERED: FINA5TAB PO (21:17)
[2017-01-26] MEDS ORDERED: FLUT1INH INH (21:17)
[2017-01-26] MEDS ORDERED: DOXA4TAB2 PO (21:17)
[2017-01-26] MEDS: HEPARIN SOD 5000 UNIT/0.5 ML CARP SQ SCH (21:53)
[2017-01-26] MEDS ORDERED: ATOR-22 PO (22:39)
[2017-01-26] MEDS ORDERED: HYDR-4717 PO (22:40)
[2017-01-27] VITALS (15 sets, daily range): BP systolic 92–125; BP diastolic 55–74; PULSE 75–101; TEMP 36.1–37.4; O2SAT 91–97
[2017-01-27] MEDS ORDERED: BREO ELLIPTA - ORDER AWAITING ACTION SCH
[2017-01-27] MEDS: LEVALBUTEROL 1.25MG/0.5ML NEB INH SCH ×6 (03:25→23:07)
[2017-01-27] MEDS: IPRATROPIUM BROMIDE NEB SOLN 0.02% 2.5 ML VIAL INH SCH ×6 (03:25→23:07)
[2017-01-27 05:44] LABS: ARTERIAL BLD GAS O2 SATURATION 90.5 % (90-95); ARTERIAL BLOOD GAS BASE EXCESS 6.6 mEq/L (-9-1.8); ARTERIAL BLOOD GAS HCO3 34 mmol/L (19-24); ARTERIAL BLOOD GAS PO2 62 mm/Hg (80-95); ARTERIAL BLOOD GAS pH 7.35 (7.35-7.45)
[2017-01-27] MEDS: METHYLPREDNISOLONE IV 80 MG in SYRINGE 0 ML IV SCH (05:45)
[2017-01-27 05:46] LABS: ALLEN TEST POS (POS); O2 ADMINISTRATION 40%
[2017-01-27] MEDS: HEPARIN SOD 5000 UNIT/0.5 ML CARP SQ SCH ×3 (05:46→21:17)
[2017-01-27 05:50] LABS: HEMATOCRIT 36.5 % (42-52); MEAN CELL VOLUME 92.4 fL (80-100); MEAN CORPUSCULAR HEMOGLOBIN 26.8 pg (25-34); MEAN PLATELET VOLUME 8.9 fL (7.4-10.4); PLATELET COUNT 300 K/uL (130-400); RED BLOOD COUNT 3.95 M/uL (4.7-6.1)
[2017-01-27 06:25] LABS: BUN/CREATININE RATIO 16.2 (10-20); CREATININE 1.1 mg/dl (0.60-1.40); POTASSIUM 4.8 mmol/L (3.5-5.1)
[2017-01-27] MEDS: LATANOPROST 0.005% OP SOLN 2.5 ML BTL OPB SCH (07:40)
[2017-01-27] MEDS: CALCIUM 600MG + VIT D 400 IU TAB PO SCH (07:42)
[2017-01-27] MEDS: FERROUS SULFATE 325 MG TAB PO SCH (07:43)
[2017-01-27] MEDS: FINASTERIDE 5 MG TAB PO SCH (07:43)
[2017-01-27] MEDS: ATORVASTATIN 20 MG TAB PO SCH (07:44)
[2017-01-27] MEDS: CYANOCOBALAMIN 500 MCG TAB (VIT B-12) PO SCH (07:44)
[2017-01-27] MEDS: CHOLECALCIFEROL 1000 INTER.UNIT TAB PO SCH (07:44)
[2017-01-27] MEDS ORDERED: SODIUM CHLORIDE 0.9% 1000ML 1,000 ML IV SCH (08:00)
--- NOTE | 2017-01-27 08:16 | DIAGNOSTIC IMAGING REPORT ---
CHEST ONE VIEW PORTABLE CLINICAL HISTORY: COPD EXACERBATION COMPARISON STUDY: Chest radiograph January 26, 2017. FINDINGS: There is no pneumothorax or pleural effusion. Mild bibasilar opacities persist. There is no evidence of pulmonary edema. Mild cardiomegaly is unchanged. Lung hyperexpansion is again noted. IMPRESSION: No significant change in appearance of the chest. Persistent bibasilar opacities which could reflect atelectasis or consolidation. Electronically signed by: Sanju Perea M.D. 01/27/2017 8:15 AM Dictated Date/Time: 01/27/2017 8:13 AM
[2017-01-27] MEDS ORDERED: FLUTICASONE FUROATE VILANTEROL INH SCH (09:00)
[2017-01-27] MEDS ORDERED: TIOTROPIUM BROMIDE 5 PUFF/90 MCG INH INH SCH (09:00)
[2017-01-27] MEDS: SODIUM CHLORIDE 0.9% 1000ML 1,000 ML IV SCH ×2 (10:10→19:01)
--- NOTE | 2017-01-27 10:30 | Pulmonary Consultation ---
History General Date of Service: Jan 27, 2017. Stated Complaint: SOB HPI The patient is a 71 year old male who presents to [facility] with complaints of Copd Exacerbation. The patient's primary care provider is Bridget Multani M.D. (MEDICAL). CC: SOB with AMS 71 y/o male admitted 01/26/17 for progressive SOB and lethargy over the previous week. He has a PmHx: significant for spontaneous PTX, COPD, and O2 dependent hypoxemia (5Lnc) CAITLIN (CPAP non-compliant) RA on MTX, CKD stage III, and CAD ( NSTEMI). His called EMS and he was sent to the [facility] ED. In the ED the patient noted SOB with a non-productive cough. In the ED the patients SaO2 was 96-100% (5Lnc BiPAP) and he was intermittently lethargic. He was treated with: hour long Neb, Solu-Medrol 125mg, and BiPAP. The patient had a recent admission to [facility] from 12/22-01/02/17 for acute on chronic respiratory failure, COPD exacerbation and traceheobronchitis along with SIADH, anemia, iron defifiency and B12 deficiency. He was treated with steroids, Doxycycline, and nebulizers with s steroid cami at the time of D/C. Denies: fever, chills, CP, pleurisy, hemoptysis Work-Up: NSR with a rate of 87 WBC: 9K AB.28/72/122/33 (60%) A-a: 203 ABG 7.35/62/62/34 (40%) A-A: 125 CO2: 35 BUN/Cr: 16/1.20 UA: Leuk Est: moderate, WBC > 30 CXR: hilar fullness, blunted RLL costo-phrenic angle, bilateral lower lobe bronchiectasis Previous Work-Up: CT Thorax (03/13/14) Sub-q air, bilateral bronchiectasis in the lower lobes with right sided loculated effusion Microbiology: BAL (03/08/14) Eli Albicans LLE (11/26/15) MSSA LLE (02/28/16) MSSA LLE (04/17/16) MSSA LLE (07/02/16) Coag - Staph LLE (07/16/16) Coag [facility] Cardiac Echo (08/12/16) LV: EF= flattened septum with septal hypokenesis, grade I diastolic dysfunction RV: moderately to sever dilation with moderate hypokenesis IVC: reduced collapsibility with SNIFF RA: estimated pressure at 15mmHg Treatment: 1) Oxygen with BiPAP support 2) Spiriva 1puff BID 3) Breo-Ellipta 100-25 1 puff QD 4) Xopenex/Atrovent Neb Q4 5) Solu-Medrol 80mg Q8 6) Azithromycin 500mg QD 7) Ceftriaxone 1gm QD Review of Systems Constitutional: reports: malaise, weakness Eyes: reports: no symptoms ENT: reports: no symptoms Cardiovascular: reports: as stated in HPI Respiratory: reports: as stated in HPI Gastrointestinal: reports: no symptoms Genitourinary - Male: reports: no symptoms Musculoskeletal: reports: myalgias Integumentary: reports: no symptoms Neurologic: reports: no symptoms Psychiatric: reports: no symptoms Endocrine: no symptoms Hematologic / Lymphatic: no symptoms Allergic / Immunologic: no symptoms Past Medical History Past Medical History: (1) BPH (benign prostatic hyperplasia) (2) Cataract (3) COPD, moderate shown on PFTs 06/2013 (4) GERD (gastroesophageal reflux disease) (5) Glaucoma (6) Hypertension (7) Non-ST elevation MS (NSTEMI) (8) Osteoporosis (9) Pulmonary embolism (Permanent Comment: in 2011, was on Coumadin for 6 months ) (10) Rheumatoid arthritis (11) Vitamin D deficiency (12) Right PTX with subcutaneous air (s/p thoracotomy Chest tube 32fr (13) Transudative multi-loculated pleural effusion (right) (14) HFpEF/Diastolic heart failure (15) Chronic Respiratory Failure BiPAP (12-18 with 4L oxygen support) Past Medical History: BPH, COPD, GERD, glaucoma, hypertension, osteoporosis, pulmonary embolism, rheumatoid arthritis, other Past Surgical History: (1) H/O eye surgery (2) Right sided thoracotomy with decortication (3) RUL wedge resection Past Surgical History: other Family History Aneurysm FATHER Diabetes mellitus GRANDMOTHER Aneurysm Diabetes mellitus Social History Hx Tobacco Use In Past Year?: Yes Smoking Status: Current Every Day Smoker Alcohol: no current use Drug Use: none Marital status: Housing status: lives with family Occupational Status: retired Immunizations History of Influenza Vaccine: Yes Influenza Vaccine Date: Apr 27, 2013 History of Tetanus Vaccine?: Yes Tetanus Immunization Date: May 03, 1993 History of Pneumococcal: Yes Pneumococcal Date: Aug 21, 2005 History of Hepatitis B Vaccine: Unknown History of MDRO History of MDRO: No Allergies Coded Allergies: No Known Allergies (Unverified , 05/21/16) Current Medications Reported Home Medications Medications Dose Route/Sig Max Daily Dose Days Date Category Dose Instructions Vitamin B12 (Cyanocobalamin) 1,000 Mcg Tab 1,000 Mcg PO DAILY 01/26/17 Reported Ferrous Sulfate 325 Mg Tab 325 Mg PO DAILY 01/26/17 Reported TAKE THIS MEDICATION ONCE DAILY WITH LUNCH Folic Acid 800 Mcg Tab 80 Mcg PO 6XWK 01/26/17 Reported DO NOT TAKE ON THURSDAY Vibramycin (Doxycycline Hyclate) 100 Mg Cap 100 Mg PO BID PRN 10 01/26/17 Reported Calcium + D (Calcium Carbonate-Vitamin D) 1 Tab Tab 1 Tab PO DAILY 01/26/17 Reported 600 MG/800 IU Vitamin D3 (Cholecalciferol) 2,000 Unit Cap 2,000 Inter.unit PO DAILY 01/26/17 Reported Zithromax (Azithromycin) 250 Mg Tab 250 Mg PO 3XWK 12/22/16 Reported TAKE THIS MEDICATION EVERY THURSDAY,THURSDAY AND THURSDAY Levalbuterol (Levalbuterol Hcl) 1.25 Mg/0.5 Ml Neb 1 Vial NEB Q4H PRN 12/22/16 Reported Ventolin Hfa (Albuterol) 200 Puffs/27552 Mcg Aers 2 Puffs INH Q6H PRN 12/22/16 Reported Sulindac 200 Mg Tab 200 Mg PO BID 12/22/16 Reported Xalatan 0.005% Oph Celia (Latanoprost) 0.005 % Celia 1 Drop OPB DAILY 12/22/16 Reported Spiriva Hand[place]haler (Tiotropium [place]) 30 Puff/540 Mcg Aerp 1 Cap INH DAILY 12/22/16 Reported Apresoline (Hydralazine Hcl) 50 Mg Tab 50 Mg PO BID 08/25/16 Reported Lipitor (Atorvastatin Calcium) 20 Mg Tab 20 Mg PO QAM 08/25/16 Reported Breo Ellipta (Fluticasone Furoate-Vilanterol) 1 Inh Inh 1 Puff INH DAILY 08/12/16 Reported 100-25 MCG Lasix (Furosemide) 20 Mg Tab 20 Mg PO 4XWK 08/12/16 Reported Take 2 tabs 3 days per week and 1 tab all other days Proscar (Finasteride) 5 Mg Tab 5 Mg PO QAM 08/12/16 Reported Cardura (Doxazosin Mesylate) 4 Mg Tab 4 Mg PO HS 08/12/16 Reported Furosemide 20 Mg Tab 40 Mg PO 3XWK 02/27/14 Reported Take 2 tabs 3 days per week and 1 tab all other days Methotrexate 2.5 Mg Tab 12.5 Mg PO WK 11/14/12 Reported Physical Physical Exam Vital Signs: Date Time Temp Pulse Resp B/P (MAP) Pulse Ox O2 Delivery O2 Flow Rate FiO2 01/27/17 08:20 103/63 (76) 01/27/17 08:00 93 Nasal Cannula 5.0 01/27/17 07:52 85 91 40 01/27/17 07:52 85 20 91 BiPAP/CPAP 40 01/27/17 07:12 36.1 85 20 112/69 (83) 97 BiPAP 01/27/17 04:00 BiPAP 01/27/17 03:56 36.5 82 16 92/61 (71) 94 BiPAP 01/27/17 03:25 83 20 92 BiPAP/CPAP 40 01/27/17 03:25 83 92 40 01/27/17 00:00 BiPAP 01/26/17 23:12 37.1 90 18 107/69 (82) 97 BiPAP 01/26/17 23:08 90 17 96 BiPAP/CPAP 50 01/26/17 23:08 90 96 40 01/26/17 20:38 50 01/26/17 20:37 91 20 96 BiPAP/CPAP 60 01/26/17 20:26 37.1 101 22 112/68 99 BiPAP 101 01/26/17 20:00 99 BiPAP 01/26/17 19:59 99 98 01/26/17 19:51 37.1 101 22 112/68 (83) 99 BiPAP 01/26/17 19:12 103 22 126/73 99 BiPAP 01/26/17 18:47 107 100 01/26/17 17:58 105 22 184/91 100 Room Air 01/26/17 16:52 96 Nasal Cannula 5.0 01/26/17 16:44 99 20 100 Nasal Cannula 6.0 01/26/17 16:42 96 Nasal Cannula 5.0 01/26/17 16:41 100 01/26/17 16:36 Nasal Cannula 5.0 98 01/26/17 16:36 36.7 103 22 109/66 98 Nasal Cannula 5.0 General Appearance: NO APPARENT DISTRESS Head: NORMOCEPHALIC, ATRAUMATIC Eyes: PERRLA, NO DISCHARGE, EOMI, SCLERAE NORMAL ENT: NORMAL EAR EXAM, NORMAL NASAL EXAM, other (dry mucus membranes) Neck: NORMAL RANGE OF MOTION Respiratory: rhonchi, wheezing (thoracic US shows diffuse bilateral B-lines but no pleural effusions) Cardiovasular: REGULAR RATE/RHYTHM, NORMAL S1S2 Abdomen: NON TENDER, NORMAL BOWEL SOUNDS, NO REBOUND Genitourinary - Male: EXTERNAL GENITALIA NORMAL Back: NORMAL INSPECTION, NO MIDLINE TENDERNESS, NO CVA TENDERNESS Upper Extremities: NO EDEMA, NO DEFORMITY Lower Extremities: NO EDEMA, NO DEFORMITY Pulses: carotid (R) (1+), carotid (L) (1+), posterior tibial (R), posterior tibial (L) (1+) Neuro: ALERT, ORIENTED x 3, NORMAL MOTOR EXAM, NORMAL SENSATION Reflexes: biceps (R) (1+), bicpes (L) (1+), patellar (R) (1+), patellar (L) (1+ ) Babinski Testing: right (downgoing), left (downgoing) Psychiatric: NORMAL AFFECT, NO SUICIDAL IDEATION Diagnostics Labs Results Past 24 Hours Test 01/26/17 17:30 01/26/17 17:42 01/26/17 19:02 01/26/17 19:24 Range/Units White Blood Count 8.74 4.8-10.8 K/uL Red Blood Count 4.54 4.7-6.1 M/uL Hemoglobin 12.0 14.0-18.0 g/dL Hematocrit 42.1 42-52 % Mean Corpuscular Volume 92.7 80-100 fL Mean Corpuscular Hemoglobin 26.4 25-34 pg Mean Corpuscular Hemoglobin Concent 28.5 32-36 g/dl Platelet Count 363 130-400 K/uL Mean Platelet Volume 9.1 7.4-10.4 fL Neutrophils (%) (Auto) 73.3 % Lymphocytes (%) (Auto) 14.5 % Monocytes (%) (Auto) 9.0 % Eosinophils (%) (Auto) 1.7 % Basophils (%) (Auto) 0.5 % Neutrophils # (Auto) 6.40 1.4-6.5 K/uL Lymphocytes # (Auto) 1.27 1.2-3.4 K/uL Monocytes # (Auto) 0.79 0.11-0.59 K/uL Eosinophils # (Auto) 0.15 0-0.5 K/uL Basophils # (Auto) 0.04 0-0.2 K/uL RDW Standard Deviation 54.5 36.4-46.3 fL RDW Coefficient of Variation 16.1 11.5-14.5 % Immature Granulocyte % (Auto) 1.0 % Immature Granulocyte # (Auto) 0.09 0.00-0.02 K/uL Red Blood Cell Morphology Unremarkable Prothrombin Time 10.6 9.0-12.0 SECONDS Prothromb Time International Ratio 1.0 0.9-1.1 Activated Partial Thromboplast Time 25.9 21.0-31.0 SECONDS Partial Thromboplastin Ratio 1.0 Sodium Level 140 136-145 mmol/L Potassium Level 4.7 3.5-5.1 mmol/L Chloride Level 99 98-107 mmol/L Carbon Dioxide Level 35 21-32 mmol/L Anion Gap 6.0 3-11 mmol/L Blood Urea Nitrogen 16 7-18 mg/dl Creatinine 1.20 0.60-1.40 mg/dl Est Creatinine Clear Calc Drug Dose 55.0 ml/min Estimated GFR () 69.1 Estimated GFR (Non- 59.6 BUN/Creatinine Ratio 13.3 10-20 Random Glucose 104 70-99 mg/dl Calcium Level 9.1 8.5-10.1 mg/dl Bedside Troponin I < 0.030 0-0.045 ng/ml Bedside Glucose 123 70-99 mg/dl Arterial Blood pH 7.28 7.35-7.45 Arterial Blood Partial Pressure CO2 72 35-46 mmHg Arterial Blood Partial Pressure O2 122 80-95 mm/Hg Arterial Blood HCO3 33 19-24 mmol/L Arterial Blood Oxygen Saturation 97.7 90-95 % Arterial Blood Base Excess 4.9 -9-1.8 mEq/L Arterial Blood Gas Delivery 60% Henry Test POS POS Test 01/26/17 20:00 01/27/17 05:24 01/27/17 09:31 Range/Units Urine Color DK YELLOW Urine Appearance CLOUDY CLEAR Urine pH 5.5 4.5-7.5 Urine Specific [place] 1.024 1.000-1.030 Urine Protein 2+ NEG Urine Glucose (UA) NEG NEG Urine Ketones TRACE NEG Urine Occult Blood TRACE NEG Urine Nitrite POS NEG Urine Bilirubin NEG NEG Urine Urobilinogen NEG NEG Urine Leukocyte Esterase MODERATE NEG Urine WBC (Auto) >30 0-5 /hpf Urine RBC (Auto) 5-10 0-4 /hpf Urine Hyaline Casts (Auto) 0 0-5 /lpf Urine Epithelial Cells (Auto) 0-5 0-5 /lpf Urine Bacteria (Auto) NEG NEG White Blood Count 5.80 4.8-10.8 K/uL Red Blood Count 3.95 4.7-6.1 M/uL Hemoglobin 10.6 14.0-18.0 g/dL Hematocrit 36.5 42-52 % Mean Corpuscular Volume 92.4 80-100 fL Mean Corpuscular Hemoglobin 26.8 25-34 pg Mean Corpuscular Hemoglobin Concent 29.0 32-36 g/dl RDW Standard Deviation 53.3 36.4-46.3 fL RDW Coefficient of Variation 15.8 11.5-14.5 % Platelet Count 300 130-400 K/uL Mean Platelet Volume 8.9 7.4-10.4 fL Arterial Blood pH 7.35 7.35-7.45 Arterial Blood Partial Pressure CO2 62 35-46 mmHg Arterial Blood Partial Pressure O2 62 80-95 mm/Hg Arterial Blood HCO3 34 19-24 mmol/L Arterial Blood Oxygen Saturation 90.5 90-95 % Arterial Blood Base Excess 6.6 -9-1.8 mEq/L Arterial Blood Gas Delivery 40% Henry Test POS POS Sodium Level 139 136-145 mmol/L Potassium Level 4.8 3.5-5.1 mmol/L Chloride Level 101 98-107 mmol/L Carbon Dioxide Level 33 21-32 mmol/L Anion Gap 5.0 3-11 mmol/L Blood Urea Nitrogen 18 7-18 mg/dl Creatinine 1.10 0.60-1.40 mg/dl Est Creatinine Clear Calc Drug Dose 61.7 ml/min Estimated GFR () 76.8 Estimated GFR (Non- 66.2 BUN/Creatinine Ratio 16.2 10-20 Random Glucose 146 70-99 mg/dl Microbiology Results 01/26/17 Blood Culture, Received Pending 01/26/17 Blood Culture, Received Pending 01/26/17 Urine Culture, Received Pending Diagnostic Radiology CXR: hilar fullness, blunted RLL costo-phrenic angle, bilateral lower lobe bronchiectasis CT Thorax (03/13/14) Sub-q air, bilateral bronchiectasis in the lower lobes with right sided loculated effusion EKG NSR with a rate of 87 Impression Assessment and Plan 71 y/o male with end-stage COPD and current acute on chronic SOB: 1) Dyspnea: The patient's dyspnea/hypoxemia is acute on chronic and can be attributed to his poor medical compliance and continued smoking. There is also some parenchymal fluid noted on thoracic US. ID: Will change the anti-biotics to HAP coverage with Cefepime and vancomycin. Obtain MRSA nasal swab if negative d/c vancomycin. Obtain CT thorax non-contrast if no acute change the suggest we only cover for UTI. COPD: I will change the patient's inhalers over to nebulizer to see if we can increase compliance as he is ok with using nebulizers. Xopenex, Albuterol and Brovana, Lower steroid IV dosing to 40mg Q8 Patient would notable benefit from BiPAP but he refuses at this time. CARD: Suggest we repeat cardiac echo and diuresis as trans-thoracic US shows diffuse B-lines suggesting a volume over load state. 2) Code Status: Agree with DNR/DNI and believe this patient is competent at this time to make this choice.
[2017-01-27 13:09] LABS: CALCIUM 8.5 mg/dl (8.5-10.1)
--- NOTE | 2017-01-27 13:46 | Progress Note ---
Internal Med Progress Note Date of Service: Jan 27, 2017. Provider Documentation: SUBJECTIVE: awake and alert today , offers no complain , no SOB , has non productive cough no fever or chills discussed briefly -regarding importance of using CPAP at night quit smoking -pt refused to consider -does not like CPAP -it always gets into the way , gets tangled up " smoking is the only thing I love in my life " don't think I can quit it evaluated by Pulmonology Dr Bell in AM ordered for CT chest OBJECTIVE: Vital Signs-as noted below Exam: General-elderly male , chronically ill appearing , no sign of distress Eyes-sclera non icteric Lungs-diminished, coarse crackles at base Heart-regular S1/S2 Abdomen-soft, non tender Extremities-no rash or deformity Neuro-awake and alert , conversing , no confusion or lethargy , no focal deficit Lab data as noted below. ASSESSMENT & PLAN: ACUTE ON CHRONIC HYPOXEMIC RESPIRATORY FAILURE : due to COPD exacerbation hx of advanced COPD , poorly complaint , ongoing smoking placed was on Bipap in ED-respiratory status improved markedly -after being on Bipap over night cont IV Solu -Medrol , Schedule Neb tx Pulmonology eval requested -appreciate input ordered for CT chest for further evaluation of lungs parenchyma Abx adjusted as per Pulmonology LETHARGY/ALTERED MENTAL STATUS : resolved, awake and alert , conversing appropriately possible metabolic encephalopathy due to respiratory failure /CO 2 retention pt started to wake up after being on Bipap Cxray -bibasilar atelectasis , no infiltrate diet ordered -tolerating well cont to monitor HTN : BP stable cont Hydralazine MEDICATION NON COMPLIANCE has been an ongoing issue family has been very frustrated with pt's care social service consul requested will need SNF-when medially appropriate -significant deconditioning CAITLIN/NON COMPLIANT WITH CPAP was ordered for CPAP 12-18 with 4 L 02 at night has not been using -as per daughter counselled to use CPAP at night -pt is reluctant TOBACCO ABUSE DISORDER : continues to smoke smoking cessation counselling provided multiple times in last admission pt is on 5 L home 02 pt refused to quit smoking -aware that it may lead him to terminal /end stage respiratory failure -leading to RA: hold MTX for acute illness cont Folic acid CODE STATUS : D/w Pt -awake and alert , able to make decision does not want any resuscitative measure /no life support pt is DNR /DNI pt advocate will be consulted to assist family and pt for advance directive DVT PROPHYLAXIS : Moderate to high risk sub q heparin DISPOSITION ; will benefit with SNF when medically stable PT/OT eval requested social service consulted for discharge planning Medicine follow up with Dr Edi Multani at [facility] called pt and daughter given update Vital Signs: Date Time Temp Pulse Resp B/P (MAP) Pulse Ox O2 Delivery O2 Flow Rate FiO2 01/27/17 12:04 37.4 101 20 96/55 (69) 91 Nasal Cannula 5.0 01/27/17 12:00 94 Nasal Cannula 5.0 01/27/17 11:20 94 20 93 Nasal Cannula 4.5 01/27/17 08:20 103/63 (76) 01/27/17 08:00 93 Nasal Cannula 5.0 01/27/17 07:52 85 91 40 01/27/17 07:52 85 20 91 BiPAP/CPAP 40 01/27/17 07:12 36.1 85 20 112/69 (83) 97 BiPAP 01/27/17 04:00 BiPAP 01/27/17 03:56 36.5 82 16 92/61 (71) 94 BiPAP 01/27/17 03:25 83 20 92 BiPAP/CPAP 40 01/27/17 03:25 83 92 40 01/27/17 00:00 BiPAP 01/26/17 23:12 37.1 90 18 107/69 (82) 97 BiPAP 01/26/17 23:08 90 17 96 BiPAP/CPAP 50 01/26/17 23:08 90 96 40 01/26/17 20:38 50 01/26/17 20:37 91 20 96 BiPAP/CPAP 60 01/26/17 20:26 37.1 101 22 112/68 99 BiPAP 101 01/26/17 20:00 99 BiPAP 01/26/17 19:59 99 98 01/26/17 19:51 37.1 101 22 112/68 (83) 99 BiPAP 01/26/17 19:12 103 22 126/73 99 BiPAP 01/26/17 18:47 107 100 01/26/17 17:58 105 22 184/91 100 Room Air 01/26/17 16:52 96 Nasal Cannula 5.0 01/26/17 16:44 99 20 100 Nasal Cannula 6.0 01/26/17 16:42 96 Nasal Cannula 5.0 01/26/17 16:41 100 01/26/17 16:36 Nasal Cannula 5.0 98 01/26/17 16:36 36.7 103 22 109/66 98 Nasal Cannula 5.0 Lab Results: Results Past 24 Hours Test 01/26/17 17:30 01/26/17 17:42 01/26/17 19:02 01/26/17 19:24 Range/Units White Blood Count 8.74 4.8-10.8 K/uL Red Blood Count 4.54 4.7-6.1 M/uL Hemoglobin 12.0 14.0-18.0 g/dL Hematocrit 42.1 42-52 % Mean Corpuscular Volume 92.7 80-100 fL Mean Corpuscular Hemoglobin 26.4 25-34 pg Mean Corpuscular Hemoglobin Concent 28.5 32-36 g/dl Platelet Count 363 130-400 K/uL Mean Platelet Volume 9.1 7.4-10.4 fL Neutrophils (%) (Auto) 73.3 % Lymphocytes (%) (Auto) 14.5 % Monocytes (%) (Auto) 9.0 % Eosinophils (%) (Auto) 1.7 % Basophils (%) (Auto) 0.5 % Neutrophils # (Auto) 6.40 1.4-6.5 K/uL Lymphocytes # (Auto) 1.27 1.2-3.4 K/uL Monocytes # (Auto) 0.79 0.11-0.59 K/uL Eosinophils # (Auto) 0.15 0-0.5 K/uL Basophils # (Auto) 0.04 0-0.2 K/uL RDW Standard Deviation 54.5 36.4-46.3 fL RDW Coefficient of Variation 16.1 11.5-14.5 % Immature Granulocyte % (Auto) 1.0 % Immature Granulocyte # (Auto) 0.09 0.00-0.02 K/uL Red Blood Cell Morphology Unremarkable Prothrombin Time 10.6 9.0-12.0 SECONDS Prothromb Time International Ratio 1.0 0.9-1.1 Activated Partial Thromboplast Time 25.9 21.0-31.0 SECONDS Partial Thromboplastin Ratio 1.0 Sodium Level 140 136-145 mmol/L Potassium Level 4.7 3.5-5.1 mmol/L Chloride Level 99 98-107 mmol/L Carbon Dioxide Level 35 21-32 mmol/L Anion Gap 6.0 3-11 mmol/L Blood Urea Nitrogen 16 7-18 mg/dl Creatinine 1.20 0.60-1.40 mg/dl Est Creatinine Clear Calc Drug Dose 55.0 ml/min Estimated GFR () 69.1 Estimated GFR (Non- 59.6 BUN/Creatinine Ratio 13.3 10-20 Random Glucose 104 70-99 mg/dl Calcium Level 9.1 8.5-10.1 mg/dl Bedside Troponin I < 0.030 0-0.045 ng/ml Bedside Glucose 123 70-99 mg/dl Arterial Blood pH 7.28 7.35-7.45 Arterial Blood Partial Pressure CO2 72 35-46 mmHg Arterial Blood Partial Pressure O2 122 80-95 mm/Hg Arterial Blood HCO3 33 19-24 mmol/L Arterial Blood Oxygen Saturation 97.7 90-95 % Arterial Blood Base Excess 4.9 -9-1.8 mEq/L Arterial Blood Gas Delivery 60% Henry Test POS POS Test 01/26/17 20:00 01/27/17 05:24 01/27/17 10:26 Range/Units Urine Color DK YELLOW Urine Appearance CLOUDY CLEAR Urine pH 5.5 4.5-7.5 Urine Specific [place] 1.024 1.000-1.030 Urine Protein 2+ NEG Urine Glucose (UA) NEG NEG Urine Ketones TRACE NEG Urine Occult Blood TRACE NEG Urine Nitrite POS NEG Urine Bilirubin NEG NEG Urine Urobilinogen NEG NEG Urine Leukocyte Esterase MODERATE NEG Urine WBC (Auto) >30 0-5 /hpf Urine RBC (Auto) 5-10 0-4 /hpf Urine Hyaline Casts (Auto) 0 0-5 /lpf Urine Epithelial Cells (Auto) 0-5 0-5 /lpf Urine Bacteria (Auto) NEG NEG White Blood Count 5.80 4.8-10.8 K/uL Red Blood Count 3.95 4.7-6.1 M/uL Hemoglobin 10.6 14.0-18.0 g/dL Hematocrit 36.5 42-52 % Mean Corpuscular Volume 92.4 80-100 fL Mean Corpuscular Hemoglobin 26.8 25-34 pg Mean Corpuscular Hemoglobin Concent 29.0 32-36 g/dl RDW Standard Deviation 53.3 36.4-46.3 fL RDW Coefficient of Variation 15.8 11.5-14.5 % Platelet Count 300 130-400 K/uL Mean Platelet Volume 8.9 7.4-10.4 fL Arterial Blood pH 7.35 7.35-7.45 Arterial Blood Partial Pressure CO2 62 35-46 mmHg Arterial Blood Partial Pressure O2 62 80-95 mm/Hg Arterial Blood HCO3 34 19-24 mmol/L Arterial Blood Oxygen Saturation 90.5 90-95 % Arterial Blood Base Excess 6.6 -9-1.8 mEq/L Arterial Blood Gas Delivery 40% Henry Test POS POS Sodium Level 139 136-145 mmol/L Potassium Level 4.8 3.5-5.1 mmol/L Chloride Level 101 98-107 mmol/L Carbon Dioxide Level 33 21-32 mmol/L Anion Gap 5.0 3-11 mmol/L Blood Urea Nitrogen 18 7-18 mg/dl Creatinine 1.10 0.60-1.40 mg/dl Est Creatinine Clear Calc Drug Dose 61.7 ml/min Estimated GFR () 76.8 Estimated GFR (Non- 66.2 BUN/Creatinine Ratio 16.2 10-20 Random Glucose 146 70-99 mg/dl Calcium Level 8.5 8.5-10.1 mg/dl Procalcitonin < 0.05 0-0.5 ng/ml Microbiology Results 01/26/17 Blood Culture, Received Pending 01/26/17 Blood Culture, Received Pending 01/26/17 Urine Culture - Preliminary, Resulted NO GROWTH - LESS THAN 1,000 COLONIES/...
[2017-01-27] MEDS ORDERED: PERFLUTREN LIPID MICROSPHERE (DEFINITY) IV ONE (13:59)
--- NOTE | 2017-01-27 14:44 | DIAGNOSTIC IMAGING REPORT ---
CT SCAN OF THE CHEST WITHOUT IV CONTRAST CLINICAL HISTORY: Chronic cough. Pleural effusion. COMPARISON STUDY: Chest CT dated 03/13/2014. Chest x-ray dated 01/27/2017. TECHNIQUE: CT scan of the thorax was performed from the thoracic inlet to the upper abdomen. Images are reviewed in the axial, sagittal, and coronal planes. IV contrast was not administered for this examination. CT DOSE: 405.67 mGy.cm FINDINGS: Thyroid: Imaged portions of the thyroid gland are normal in size and attenuation. Thoracic aorta: There is advanced atherosclerotic calcification of the thoracic aorta, which is normal in caliber and demonstrates bovine variant arch anatomy. Heart: The heart is normal in size and without pericardial effusion. The coronary arteries and aortic valve leaflets are densely calcified. There is diminished attenuation of the cardiac blood pool as compared to the myocardium suggesting anemia. The pulmonary trunk and main pulmonary arteries are markedly dilated suggesting pulmonary artery hypertension. The lower trunk measures up to 4.0 cm. Lungs and pleural spaces: There is advanced emphysema. No airspace consolidation is seen typical for pneumonia and there is no pleural effusion. Atelectasis versus scarring is seen at both lung bases. Fluid/secretions are present within the lower lobe airways bilaterally, left greater than right. Findings suggest previous right middle lobe resection. Layering fluid is seen within the trachea and right mainstem bronchus. Mediastinum: There are mildly enlarged mediastinal lymph nodes. A right paratracheal node on image #84 measures 1.3 cm in short axis. Precarinal nodes measure up to 1.5 cm in short axis, and a subcarinal node measures 2.3 cm in short axis. Sheila: Hilar adenopathy is suspected but not well evaluated without IV contrast. A suspected right hilar node on image #168 measures 1.5 cm in short axis. Axillae: There is no axillary lymphadenopathy. Upper abdomen: Calcified gallstones are identified. There is a tiny hiatal hernia. The partially imaged kidneys demonstrate cortical atrophy. Skeletal structures: The skeletal structures are osteopenic. Degenerative change and hyperkyphosis are noted in the thoracic spine. There are mild superior endplate compression forms of T3 and T4. No lytic or blastic bony lesions are seen. There are healed right-sided rib fractures. IMPRESSION: 1. Severe emphysema with evidence of previous right middle lobe resection. Correlation with the patient's surgical history will be required. 2. Cardiomegaly with evidence of pulmonary artery hypertension. 3. There is no airspace consolidation typical for pneumonia or pleural effusion. 4. Fluid/secretions are present within the left lower lobe airways. There is also fluid seen within the distal trachea and right mainstem bronchus. Correlate clinically for evidence of aspiration. 5. Mediastinal and probable hilar adenopathy is nonspecific. 6. Cholelithiasis. 7. Additional findings as above. Electronically signed by: Krishna Lange M.D. 01/27/2017 2:43 PM Dictated Date/Time: 01/27/2017 2:35 PM
[2017-01-27] MEDS: METHYLPREDNISOLONE IV 40 MG in SYRINGE 0 ML IV SCH ×2 (15:08→21:15)
--- NOTE | 2017-01-27 16:25 | ECHOCARDIOGRAM REPORT ---
*NOTICE TO RECEIVING LIBERTARIAN AGENCY This information is strictly Confidential and protected under [place] law. [place] law prohibits you from making any further disclosure of this information unless further disclosure is expressly permitted by the written consent of the person to whom it pertains or is authorized by law. A general authorization for the release of medical or other information is not sufficient for this purpose. Hospital accepts no responsibility if the information is made available to any other person, INCLUDING THE PATIENT. Interpretation Summary * Name: YARON GUZMAN Study Date: 01/27/2017 01:09 PM BP: 96/55 mmHg * Patient Location: C.2T\S\S242\S\1 HR: 100 * : 1945 (M/d/y) Gender: Male Height: 66 in * Age: 71 yrs Ethnicity: [place] Weight: 190 lb * Ordering Physician: Macey Burroughs * Referring Physician: Self, Referred * Performed By: Reina Martinez RDCS * * Reason For Study: CHF * BSA: 2.0 m2 * -- Conclusions -- * Normal LV chamber size with moderate concentric LVH. * Normal LV systolic function, EF 55-60%. * Moderate hypokinesis of the basal/mid inferior wall and apical anteroseptal wall, otherwise, normal wall motion. * Grade I diastolic dysfunction. * Aortic valve sclerosis mild, without significant aortic valvular stenosis. Procedure Details * A contrast injection of Definity was performed to improve assessment of LV function. * Contrast was injected into an intravenous site in the left arm. * One vial of Definity ultrasound contrast was diluted in normal saline to a total volume of 10 ml. A total of '2' ml of solution was administered during imaging. * Lot # [id number] of Definity utilized for procedure. * Expiration date 1 FEB 17. * The attending nurse who injected the contrast agent was MOHSEN MATHIS RN. Left Ventricle * The left ventricle is normal in size. * There is moderate concentric left ventricular hypertrophy. * Ejection Fraction = 55-60%. * Left ventricular systolic function is normal. * Moderate hypokinesis of the basal/mid inferior wall and apical anteroseptal wall, otherwise, normal wall motion. Right Ventricle * The right ventricular cavity size is normal (basal dimension <4.2 cm in right ventricular apical 4-chamber view). * The right ventricular systolic function is normal as assessed by tricuspid annular plane systolic excursion (TAPSE) (normal >1.5 cm). Atria * The left atrium is not well visualized. * Right atrium not well visualized. Mitral Valve * The mitral valve is normal in structure and function. Tricuspid Valve * The tricuspid valve is normal in structure and function. Aortic Valve * The aortic valve is trileaflet. * Aortic valve sclerosis mild, without significant aortic valvular stenosis. * There is no significant aortic regurgitation. Pulmonic Valve * The pulmonary valve is not well seen, but the Doppler examination is normal without significant regurgitation or stenosis. Great Vessels * The aortic root is normal size. Pericardium/Pleural * There is no pericardial effusion. Left Ventricular Diastolic Function * Grade I diastolic dysfunction, (abnormal relaxation pattern). MMode 2D Measurements and Calculations IVSd 1.6 cm IVSs 1.5 cm LVIDd 4.1 cm LVIDs 3.0 cm LVPWd 1.7 cm LVPWs 2.0 cm IVS/LVPW 0.94 FS 25.9 % EDV(Teich) 73.2 ml ESV(Teich) 35.5 ml EF(Teich) 51.5 % EDV(cubed) 67.7 ml ESV(cubed) 27.5 ml EF(cubed) 59.4 % % IVS thick -6.84 % % LVPW thick 21.8 % LV mass(C)d 273.9 grams LV mass(C)dI 139.9 grams/m\S\2 LV mass(C)s 211.0 grams LV mass(C)sI 107.8 grams/m\S\2 SV(Teich) 37.7 ml SI(Teich) 19.2 ml/m\S\2 SV(cubed) 40.2 ml SI(cubed) 20.5 ml/m\S\2 Ao root diam 3.9 cm Ao root area 11.7 cm\S\2 LVAd ap4 37.0 cm\S\2 LVLd ap4 8.9 cm EDV(MOD-sp4) 125.4 ml EDV(sp4-el) 131.4 ml LVAs ap4 24.4 cm\S\2 LVLs ap4 7.8 cm ESV(MOD-sp4) 65.5 ml ESV(sp4-el) 65.1 ml EF(MOD-sp4) 47.8 % EF(sp4-el) 50.4 % LVAd ap2 34.0 cm\S\2 LVLd ap2 8.9 cm EDV(MOD-sp2) 107.7 ml EDV(sp2-el) 110.9 ml LVAs ap2 20.6 cm\S\2 LVLs ap2 7.1 cm ESV(MOD-sp2) 48.4 ml ESV(sp2-el) 51.1 ml EF(MOD-sp2) 55.1 % EF(sp2-el) 53.9 % LVLd %diff 0.09 % EDV(MOD-bp) 116.5 ml LVLs %diff -10.21 % ESV(MOD-bp) 55.6 ml EF(MOD-bp) 52.3 % SV(MOD-sp4) 59.9 ml SI(MOD-sp4) 30.6 ml/m\S\2 SV(MOD-sp2) 59.3 ml SI(MOD-sp2) 30.3 ml/m\S\2 SV(MOD-bp) 61.0 ml SI(MOD-bp) 31.2 ml/m\S\2 SV(sp4-el) 66.3 ml SI(sp4-el) 33.9 ml/m\S\2 SV(sp2-el) 59.7 ml SI(sp2-el) 30.5 ml/m\S\2 Doppler Measurements and Calculations MV E max shane 117.1 cm/sec MV A max shane 135.1 cm/sec MV E/A 0.87 MV dec time 0.23 sec Ao V2 max 148.4 cm/sec Ao max PG 8.8 mmHg Ao max PG (full) 4.0 mmHg LV V1 max PG 4.8 mmHg LV V1 max 109.4 cm/sec
[2017-01-27] MEDS: ARFORMOTEROL TART 15MCG/2ML VIAL INH SCH (19:25)
[2017-01-27] MEDS: DOXAZosin MESYLATE TAB 4 MG TAB PO SCH (21:14)
[2017-01-28] VITALS (16 sets, daily range): BP systolic 119–159; BP diastolic 68–87; PULSE 60–79; TEMP 36.2–37.1; O2SAT 92–98
[2017-01-28] MEDS: IPRATROPIUM BROMIDE NEB SOLN 0.02% 2.5 ML VIAL INH SCH ×6 (03:29→23:29)
[2017-01-28] MEDS: LEVALBUTEROL 1.25MG/0.5ML NEB INH SCH ×6 (03:29→23:30)
[2017-01-28] MEDS: METHYLPREDNISOLONE IV 40 MG in SYRINGE 0 ML IV SCH ×3 (06:06→21:35)
[2017-01-28] MEDS: HEPARIN SOD 5000 UNIT/0.5 ML CARP SQ SCH ×3 (06:09→21:37)
[2017-01-28] MEDS: ARFORMOTEROL TART 15MCG/2ML VIAL INH SCH ×2 (07:21→19:13)
[2017-01-28 07:34] LABS: HEMATOCRIT 32.2 % (42-52); MEAN CORPUSCULAR HGB CONC 29.5 g/dl (32-36); MEAN PLATELET VOLUME 8.8 fL (7.4-10.4); PLATELET COUNT 289 K/uL (130-400); RED BLOOD COUNT 3.66 M/uL (4.7-6.1); WHITE BLOOD COUNT 10.26 K/uL (4.8-10.8)
[2017-01-28] MEDS: SODIUM CHLORIDE 0.9% 1000ML 1,000 ML IV SCH ×2 (08:00→21:35)
[2017-01-28] MEDS: CHOLECALCIFEROL 1000 INTER.UNIT TAB PO SCH (08:01)
[2017-01-28] MEDS: LATANOPROST 0.005% OP SOLN 2.5 ML BTL OPB SCH (08:01)
[2017-01-28] MEDS: FINASTERIDE 5 MG TAB PO SCH (08:02)
[2017-01-28] MEDS: ATORVASTATIN 20 MG TAB PO SCH (08:02)
[2017-01-28] MEDS: CALCIUM 600MG + VIT D 400 IU TAB PO SCH (08:02)
[2017-01-28] MEDS: FERROUS SULFATE 325 MG TAB PO SCH (08:02)
[2017-01-28] MEDS: CYANOCOBALAMIN 500 MCG TAB (VIT B-12) PO SCH (08:02)
--- NOTE | 2017-01-28 13:48 | Pulmonology Progress Note ---
Pulmonary Progress Note Date of Service Jan 28, 2017. Attending Dr. Bell Subjective No acute change management specialist the last 24 hours and the patient's overall respiratory status. He does not severe fatigue today Objective Patient still using accessory muscles mildly tachypnea but able to complete full sentences at this time. I/Os: +1.8L SaO2: 93-98% (4.5-5.0L) RR: 18-24 RESP: decreased BS bilaterally with rhonchi at the bases Cardiac: S1-S2 regular rate and rhythm no murmurs rubs or gallops Abdomen: Soft, nontender no rebound positive bowel sounds [place] extremity: No clubbing cyanosis or edema Cardiac Echo (01/27/17) LV: EF=55-60%, LVH, mild hypokinesis of the basal/mid inferior and apical álvarez RV: TAPSE > 1.5cm Grade I diastolic dysfunction CT Thorax (01/27/17) Sever Emphysema Possible Cor Pulmonale Possible aspiration Mediastinal and hilar adenopathy Cholelithiasis EKG (01/28/17) compared to (01/27/17) & (12/26/16) & (12/24/16) NSR with no acute changes LABS: WBC: 10K Procalcitonin: <0.050 Troponin I: <0.030 Microbiology: Urine and Blood no notable growth Assessment & Plan 70-year-old male with end-stage COPD admitted for acute on chronic respiratory insufficiency: #1 Dyspnea: Patient with most likely benefit from continuous BiPAP therapy to decrease his overall work of breathing but he continues to be noncompliant. I suggest we continue the patient's current medical regimen with IV steroids, DuoNeb's and Brovana. At this time there is no signs of over diastolic dysfunction but with continue to keep the patient on an even I's and O's are possibly 500 cc possible to maximize fluid balance. Data Medications: Current Inpatient Medications Medications (Trade) Dose Ordered Sig/Jono Route Start Time Stop Time Status Last Admin Dose Admin Heparin Sodium (Porcine) (Heparin Sq 5000 Unit/0.5ml) 5,000 unit Q8 SQ 01/26/17 22:00 02/25/17 21:59 01/28/17 13:34 5,000 UNIT Acetaminophen (Tylenol Tab) 650 mg Q4H PRN PO 01/26/17 19:30 02/25/17 19:29 Al Hydrox/Mg Hydrox/Simethicone (Maalox Max Susp) 15 ml Q4H PRN PO 01/26/17 19:30 02/25/17 19:29 Magnesium Hydroxide (Milk Of Magnesia Susp) 30 ml Q12H PRN PO 01/26/17 19:30 02/25/17 19:29 Ondansetron HCl (Zofran Inj) 4 mg Q6H PRN IV 01/26/17 19:30 02/25/17 19:29 Polyethylene (Miralax Powder Packet) 17 gm DAILY PRN PO 01/26/17 19:30 02/25/17 19:29 Albuterol (Ventolin Hfa Inhaler) 2 puffs Q6H PRN INH 01/26/17 19:30 02/25/17 19:29 Atorvastatin Calcium (Lipitor Tab) 20 mg QAM PO 01/27/17 09:00 02/26/17 08:59 01/28/17 08:02 20 MG Doxazosin Mesylate (Cardura Tab) 4 mg HS PO 01/26/17 21:00 02/25/17 20:59 01/27/17 21:14 4 MG Ferrous Sulfate (Feosol Tab) 325 mg DAILY PO 01/27/17 09:00 02/26/17 08:59 01/28/17 08:02 325 MG Finasteride (Proscar Tab) 5 mg QAM PO 01/27/17 09:00 02/26/17 08:59 01/28/17 08:02 5 MG Hydralazine HCl (Apresoline Tab) 50 mg BID PO 01/26/17 21:00 02/25/17 20:59 01/28/17 08:01 50 MG Latanoprost (Xalatan Oph Soln) 1 drops DAILY OPB 01/27/17 09:00 02/26/17 08:59 01/28/17 08:01 1 DROPS Calcium/Vitamin D (Caltrate Plus Tab) 1 tab DAILY PO 01/27/17 09:00 02/26/17 08:59 01/28/17 08:02 1 TAB Cholecalciferol (Vitamin D Tab) 2,000 inter.unit DAILY PO 01/27/17 09:00 02/26/17 08:59 01/28/17 08:01 2,000 INTER.UNIT Cyanocobalamin (Vitamin B-12 Tab) 1,000 mcg DAILY PO 01/27/17 09:00 02/26/17 08:59 01/28/17 08:02 1,000 MCG Folic Acid (Folvite Tab) 1 mg QAM PO 01/27/17 09:00 02/26/17 08:59 01/28/17 08:02 1 MG Ipratropium [place] (Atrovent 0.02% 0.5MG/2.5ML Neb) 0.5 mg Q2H PRN INH 01/26/17 20:30 02/25/17 20:29 Levalbuterol (Xopenex 1.25MG/ 0.5ML Neb) 1.25 mg Q2H PRN INH 01/26/17 20:30 02/25/17 20:29 Ipratropium [place] (Atrovent 0.02% 0.5MG/2.5ML Neb) 0.5 mg Q4R INH 01/27/17 04:00 02/26/17 03:59 01/28/17 11:13 0.5 MG Levalbuterol (Xopenex 1.25MG/ 0.5ML Neb) 1.25 mg Q4R INH 01/27/17 04:00 02/26/17 03:59 01/28/17 11:13 1.25 MG Sodium Chloride 1,000 ml @ 80 mls/hr [id number] IV 01/27/17 08:00 02/26/17 07:59 01/28/17 08:00 80 MLS/HR Methylprednisolone Sodium Succinate 40 mg/Syringe 0.64 ml @ 1.5 mls/min Q8 IV 01/27/17 14:00 02/25/17 21:59 01/28/17 13:31 1.5 MLS/MIN Arformoterol Tartrate (Brovana 15MCG/ 2ML Neb Soln) 15 mcg BIDR INH 01/27/17 20:00 02/26/17 19:59 01/27/17 19:25 15 MCG I & O: 24-Hour Column 01/29/17 08:00 Output Total 0 ml Balance 0 ml Vital Signs: Date Time Temp Pulse Resp B/P (MAP) Pulse Ox O2 Delivery O2 Flow Rate FiO2 01/28/17 12:00 Room Air 5.0 01/28/17 11:14 36.2 74 20 119/68 (85) 94 Nasal Cannula 4.5 01/28/17 11:13 68 18 95 Nasal Cannula 5.0 01/28/17 08:00 94 Room Air 5.0 01/28/17 07:27 36.6 61 20 143/72 (95) 94 Room Air 4.5 01/28/17 04:00 95 Nasal Cannula 5.0 01/28/17 03:29 62 18 98 Nasal Cannula 4.5 01/28/17 03:06 36.7 60 18 153/82 (105) 95 Nasal Cannula 4.5 01/28/17 00:00 36.9 76 24 127/73 (91) 93 Nasal Cannula 5.0 01/28/17 00:00 93 Nasal Cannula 5.0 01/27/17 23:07 75 18 94 Nasal Cannula 4.5 01/27/17 21:15 80 120/61 (80) 01/27/17 20:00 37.0 85 28 125/59 (81) 92 Nasal Cannula 5.0 01/27/17 20:00 92 Nasal Cannula 5.0 01/27/17 19:25 81 18 93 Nasal Cannula 4.5 01/27/17 16:00 92 Nasal Cannula 5.0 01/27/17 16:00 37.1 91 18 122/74 (90) 91 Nasal Cannula 5.0 01/27/17 15:31 83 18 92 Nasal Cannula 4.0 Laboratory Results: Last 24 Hours Test 01/28/17 07:19 White Blood Count 10.26 K/uL Red Blood Count 3.66 M/uL Hemoglobin 9.5 g/dL Hematocrit 32.2 % Mean Corpuscular Volume 88.0 fL Mean Corpuscular Hemoglobin 26.0 pg Mean Corpuscular Hemoglobin Concent 29.5 g/dl RDW Standard Deviation 49.5 fL RDW Coefficient of Variation 15.5 % Platelet Count 289 K/uL Mean Platelet Volume 8.8 fL
[2017-01-28] MEDS: DOXAZosin MESYLATE TAB 4 MG TAB PO SCH (20:21)
--- NOTE | 2017-01-28 20:49 | Progress Note ---
Internal Med Progress Note Date of Service: Jan 28, 2017. Provider Documentation: SUBJECTIVE: awake and alert today refused to do PT refused to go to rehab " I am not dying in [place] " feels breathing much better wants to go home as soon as possible OBJECTIVE: Vital Signs-as noted below Exam: General-elderly male , chronically ill appearing , no sign of distress Eyes-sclera non icteric Lungs-diminished, coarse crackles at base Heart-regular S1/S2 Abdomen-soft, non tender Extremities-no rash or deformity Neuro-awake and alert , conversing , no confusion or lethargy , no focal deficit Lab data as noted below. ASSESSMENT & PLAN: ACUTE ON CHRONIC HYPOXEMIC RESPIRATORY FAILURE : due to COPD exacerbation hx of advanced COPD , poorly complaint , ongoing smoking placed was on Bipap in ED-respiratory status improved markedly -after being on Bipap over night per pulmonology pt should continue Bipap at night for respiratory support cont IV Solu -Medrol , Schedule Neb tx Pulmonology eval requested -appreciate input CT chest : 1. Severe emphysema with evidence of previous right middle lobe resection. Correlation with the patient's surgical history will be required. 2. Cardiomegaly with evidence of pulmonary artery hypertension. 3. There is no airspace consolidation typical for pneumonia or pleural effusion. 4. Fluid/secretions are present within the left lower lobe airways. There is also fluid seen within the distal trachea and right mainstem bronchus. Correlate clinically for evidence of aspiration. 5. Mediastinal and probable hilar adenopathy is nonspecific. LETHARGY/ALTERED MENTAL STATUS : resolved, awake and alert , conversing appropriately possible metabolic encephalopathy due to respiratory failure /CO 2 retention cont to monitor HTN : BP stable cont Hydralazine MEDICATION NON COMPLIANCE has been an ongoing issue family has been very frustrated with pt's care social service consul requested will need SNF-when medially appropriate -significant deconditioning CAITLIN/NON COMPLIANT WITH CPAP was ordered for CPAP 12-18 with 4 L 02 at night has not been using -as per daughter counselled to use CPAP at night -pt is reluctant TOBACCO ABUSE DISORDER : continues to smoke smoking cessation counselling provided multiple times in last admission pt is on 5 L home 02 pt refused to quit smoking -aware that it may lead him to terminal /end stage respiratory failure -leading to RA: hold MTX for acute illness cont Folic acid CODE STATUS : D/w Pt -awake and alert , able to make decision does not want any resuscitative measure /no life support pt is DNR /DNI pt advocate will be consulted to assist family and pt for advance directive DVT PROPHYLAXIS : Moderate to high risk sub q heparin DISPOSITION ; will benefit with SNF-pt is completely against it PT/OT valerie requested -wiling to participate in PT while in hospital after much counselling D/w daughter and -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 consulted for discharge planning Medicine follow up with Dr Edi Multani at [facility] called pt and daughter given update Vital Signs: Date Time Temp Pulse Resp B/P (MAP) Pulse Ox O2 Delivery O2 Flow Rate FiO2 01/28/17 19:42 37.1 67 18 159/87 (111) 96 Nasal Cannula 5.0 01/28/17 19:13 77 18 97 Nasal Cannula 5.0 01/28/17 16:00 95 Nasal Cannula 5.0 01/28/17 15:29 36.7 79 20 132/69 (90) 95 Nasal Cannula 5.0 01/28/17 15:05 73 18 92 Nasal Cannula 4.0 01/28/17 12:00 Room Air 5.0 01/28/17 11:14 36.2 74 20 119/68 (85) 94 Nasal Cannula 4.5 01/28/17 11:13 68 18 95 Nasal Cannula 5.0 01/28/17 08:00 94 Room Air 5.0 01/28/17 07:27 36.6 61 20 143/72 (95) 94 Room Air 4.5 01/28/17 04:00 95 Nasal Cannula 5.0 01/28/17 03:29 62 18 98 Nasal Cannula 4.5 01/28/17 03:06 36.7 60 18 153/82 (105) 95 Nasal Cannula 4.5 01/28/17 00:00 36.9 76 24 127/73 (91) 93 Nasal Cannula 5.0 01/28/17 00:00 93 Nasal Cannula 5.0 01/27/17 23:07 75 18 94 Nasal Cannula 4.5 01/27/17 21:15 80 120/61 (80) Lab Results: Results Past 24 Hours Test 01/28/17 07:19 Range/Units White Blood Count 10.26 4.8-10.8 K/uL Red Blood Count 3.66 4.7-6.1 M/uL Hemoglobin 9.5 14.0-18.0 g/dL Hematocrit 32.2 42-52 % Mean Corpuscular Volume 88.0 80-100 fL Mean Corpuscular Hemoglobin 26.0 25-34 pg Mean Corpuscular Hemoglobin Concent 29.5 32-36 g/dl RDW Standard Deviation 49.5 36.4-46.3 fL RDW Coefficient of Variation 15.5 11.5-14.5 % Platelet Count 289 130-400 K/uL Mean Platelet Volume 8.8 7.4-10.4 fL Microbiology Results 01/28/17 MRSA DNA Surveillance Screen - Final, Complete Specimen Negative for MRSA by DNA Probe
[2017-01-29] VITALS (15 sets, daily range): BP systolic 123–172; BP diastolic 66–89; PULSE 66–119; TEMP 36.6–36.8; O2SAT 77–97
[2017-01-29] MEDS: IPRATROPIUM BROMIDE NEB SOLN 0.02% 2.5 ML VIAL INH SCH ×6 (03:41→23:12)
[2017-01-29] MEDS: LEVALBUTEROL 1.25MG/0.5ML NEB INH SCH ×6 (03:41→23:12)
[2017-01-29] MEDS: METHYLPREDNISOLONE IV 40 MG in SYRINGE 0 ML IV SCH ×2 (05:42→17:20)
[2017-01-29] MEDS: HEPARIN SOD 5000 UNIT/0.5 ML CARP SQ SCH ×3 (05:43→20:59)
[2017-01-29] MEDS: SODIUM CHLORIDE 0.9% 1000ML 1,000 ML IV SCH (06:30)
[2017-01-29] MEDS: ARFORMOTEROL TART 15MCG/2ML VIAL INH SCH ×2 (07:47→18:59)
[2017-01-29] MEDS: CHOLECALCIFEROL 1000 INTER.UNIT TAB PO SCH (07:56)
[2017-01-29] MEDS: CYANOCOBALAMIN 500 MCG TAB (VIT B-12) PO SCH (07:56)
[2017-01-29] MEDS: CALCIUM 600MG + VIT D 400 IU TAB PO SCH (07:56)
[2017-01-29] MEDS: FERROUS SULFATE 325 MG TAB PO SCH (07:56)
[2017-01-29] MEDS: ATORVASTATIN 20 MG TAB PO SCH (07:56)
[2017-01-29] MEDS: FINASTERIDE 5 MG TAB PO SCH (07:56)
[2017-01-29] MEDS: LATANOPROST 0.005% OP SOLN 2.5 ML BTL OPB SCH (07:57)
--- NOTE | 2017-01-29 08:46 | Progress Note ---
Internal Med Progress Note Date of Service: Jan 29, 2017. Provider Documentation: SUBJECTIVE: awake and alert today refused to do PT refused to go to rehab " I am not dying in [place] " feels breathing much better wants to go home as soon as possible OBJECTIVE: Vital Signs-as noted below Exam: General-elderly male , chronically ill appearing , no sign of distress Eyes-sclera non icteric Lungs-diminished, coarse crackles at base Heart-regular S1/S2 Abdomen-soft, non tender Extremities-no rash or deformity Neuro-awake and alert , conversing , no confusion or lethargy , no focal deficit Lab data as noted below. ASSESSMENT & PLAN: ACUTE ON CHRONIC HYPOXEMIC RESPIRATORY FAILURE : respiratory status improved to baseline due to COPD exacerbation hx of advanced COPD , poorly complaint , ongoing smoking placed was on Bipap in ED-respiratory status improved markedly -after being on Bipap over night per pulmonology pt should continue Bipap at night for respiratory support cont IV Solu -Medrol started to taper down on q12 dose , will change to PO Prednisone tomorrow , Schedule Neb tx Pulmonology eval requested -appreciate input CT chest : 1. Severe emphysema with evidence of previous right middle lobe resection. Correlation with the patient's surgical history will be required. 2. Cardiomegaly with evidence of pulmonary artery hypertension. 3. There is no airspace consolidation typical for pneumonia or pleural effusion. 4. Fluid/secretions are present within the left lower lobe airways. There is also fluid seen within the distal trachea and right mainstem bronchus. Correlate clinically for evidence of aspiration. 5. Mediastinal and probable hilar adenopathy is nonspecific. HYPOTENSION /LOW URINE OUT PUT : possible due to dehydration BP stable now urine out put pickle pumper with IV fluids ECHO : * Normal LV chamber size with moderate concentric LVH. * Normal LV systolic function, EF 55-60%. * Moderate hypokinesis of the basal/mid inferior wall and apical anteroseptal wall, otherwise, normal wall motion. * Grade I diastolic dysfunction. * Aortic valve sclerosis mild, without significant aortic valvular stenosis. will D/c IVF D/C [place] OOB to chair , increase activity as tolerated stable to transfer to medical floor LETHARGY/ALTERED MENTAL STATUS : resolved, awake and alert , conversing appropriately refusing PT/OT refusing to quit smoking refusing to go to rehab possible metabolic encephalopathy due to respiratory failure /CO 2 retention pt is counselled repeatedly to use CPAP -not interested HTN : BP stable cont Hydralazine MEDICATION NON COMPLIANCE has been an ongoing issue family has been very frustrated with pt's care social service consul requested will need SNF-when medially appropriate -significant deconditioning CAITLIN/NON COMPLIANT WITH CPAP was ordered for CPAP 12-18 with 4 L 02 at night has not been using -as per daughter counselled to use CPAP at night -pt is reluctant TOBACCO ABUSE DISORDER : continues to smoke smoking cessation counselling provided multiple times in last admission pt is on 5 L home 02 pt refused to quit smoking -aware that it may lead him to terminal /end stage respiratory failure -leading to RA: hold MTX for acute illness cont Folic acid CODE STATUS : D/w Pt -awake and alert , able to make decision does not want any resuscitative measure /no life support pt is DNR /DNI pt advocate will be consulted to assist family and pt for advance directive DVT PROPHYLAXIS : Moderate to high risk sub q heparin DISPOSITION ; will benefit with SNF-pt is completely against it PT/OT eval requested refused PT OT eval appreciated : - several safety concerns at home with pt's smoking, med and CPAP noncompliance, and if his spouse/caregivers are able to provide necessary care. Pt would certainly benefit from a rehab stay to improve safety, balance, and activity tolerance for daily tasks. . 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0 01/29/17 03:41 74 18 97 Nasal Cannula 5.0 01/28/17 23:59 Nasal Cannula 5.0 01/28/17 23:56 37.1 70 17 149/79 (102) 94 Nasal Cannula 5.0 01/28/17 23:30 78 18 94 Nasal Cannula 5.0 01/28/17 20:00 94 Nasal Cannula 5.0 01/28/17 19:42 37.1 67 18 159/87 (111) 96 Nasal Cannula 5.0 01/28/17 19:13 77 18 97 Nasal Cannula 5.0 01/28/17 16:00 95 Nasal Cannula 5.0 01/28/17 15:29 36.7 79 20 132/69 (90) 95 Nasal Cannula 5.0 01/28/17 15:05 73 18 92 Nasal Cannula 4.0 01/28/17 12:00 Room Air 5.0 01/28/17 11:14 36.2 74 20 119/68 (85) 94 Nasal Cannula 4.5 01/28/17 11:13 68 18 95 Nasal Cannula 5.0 Lab Results: Microbiology Results 01/28/17 MRSA DNA Surveillance Screen - Final, Complete Specimen Negative for MRSA by DNA Probe 01/28/17 Urine Culture, Received Pending
--- NOTE | 2017-01-29 09:38 | Pulmonology Progress Note ---
Pulmonary Progress Note Date of Service Jan 29, 2017. Attending Dr. Bell Subjective Denies pain. States he feels improved from prior. Continue dyspnea which he states is normal for him. No hemoptysis or chest pain. Continues to refuse CPAP. Objective 71-yo male admitted through [facility] ER with progressive dyspnea and somnolence. PMHx includes: recent admission 12/22/16 - 01/02/17 with acute respiratory failure , h/o severe O2-dependent COPD (5LPM), bronchiectasis (bilateral), CAITLIN - non- compliant with CPAP, GERD, grade I diastolic dysfunction, glaucoma, h/o PE ( 2011 - off AC), HTN, rheumatoid arthritis - methotrexate, CKD III, CAD, . Ongoing tobacco use: In the ER he was hypoxic with progressive AMS requiring BiPAP. Family noted that he had been somnolent and refusing to take his medications or wear CPAP. CXR continued to described "chronic interstitial thickening and bibasilar densities"- unchanged from 12/25/16. No leukocytosis - Pct: neg. Antibiotics held. - Urine: suggestive of UTI - culture pending - ABG 01/26/17: 7.28/72/122-60%/33 - ABG 01/27/17: 7.35/62/62 -40%/34 - Bedside ultrasound suggestive of interstitial edema. - Echocardiogram 01/27/17: EF 55-60%, Grade I diastolic dysfunction. Moderate hypokinesis of the basal/mid-inferior wall and apical anterioseptal wall. Mild aortic valve sclerosis - CT chest: Severe emphysema with h/o previous RML resection. Cardiomegaly with evidence of pulmonary artery hypertension. Fluid secretions in the LLL airways as well as in the distal trachea and right mainstem bronchus. Today: - No new labs - Afebrile, hypertensive - Solu-Medrol: 40 mg BID, [id number]-xzwrjfinrhm, BID Brovana Physical Exam: Constitutional: elderly obese male lying in hospital bed - no acute distress Head: + facial symmetry Eyes: EOMi, PERRLA, no injection - corrective lenses Mouth: moist mucous membranes. Edentulous. No lesions or erythema. CV: Regular rate and rhythm. Warm and perfused peripherally Respiratory: Non-labored respirations. O2 via NC in place - 5LPM. Bilateral wheeze and coarse rales Right > left (patient lying on right side) GI: soft, active bowel sounds. Non-tender MSK/Extremities: Moving and developed symmetrically. Neurologic: Alert. Cooperative. Assessment & Plan 70-year-old male with end-stage COPD admitted for acute on chronic respiratory insufficiency: 1. Clinically improving with persistent wheeze - continue IV steroid as prescribed and anticipate readiness to transition to PO over the weekend. 2. Continue scheduled bronchodilators and Brovana - titrated to PO steroid transition to Symbicort 160/4.5 or Advair 500/50 BID and + Spiriva 3. On discharge would discharge him on increased Breo dose (200/25) along with BLADDER TRIMMER Spiriva 4. Would benefit from smoking cessation, nocturnal CPAP and pulmonary rehab however patient declines these options 5. Bronchial secretions on CT: flutter valve and IS - patient agreeable to this. Patient and case reviewed and plan agreed with. Data Medications: Current Inpatient Medications Medications (Trade) Dose Ordered Sig/Jono Route Start Time Stop Time Status Last Admin Dose Admin Heparin Sodium (Porcine) (Heparin Sq 5000 Unit/0.5ml) 5,000 unit Q8 SQ 01/26/17 22:00 02/25/17 21:59 01/29/17 05:43 5,000 UNIT Acetaminophen (Tylenol Tab) 650 mg Q4H PRN PO 01/26/17 19:30 02/25/17 19:29 Al Hydrox/Mg Hydrox/Simethicone (Maalox Max Susp) 15 ml Q4H PRN PO 01/26/17 19:30 02/25/17 19:29 Magnesium Hydroxide (Milk Of Magnesia Susp) 30 ml Q12H PRN PO 01/26/17 19:30 02/25/17 19:29 Ondansetron HCl (Zofran Inj) 4 mg Q6H PRN IV 01/26/17 19:30 02/25/17 19:29 Polyethylene (Miralax Powder Packet) 17 gm DAILY PRN PO 01/26/17 19:30 02/25/17 19:29 Albuterol (Ventolin Hfa Inhaler) 2 puffs Q6H PRN INH 01/26/17 19:30 02/25/17 19:29 Atorvastatin Calcium (Lipitor Tab) 20 mg QAM PO 01/27/17 09:00 02/26/17 08:59 01/29/17 07:56 20 MG Doxazosin Mesylate (Cardura Tab) 4 mg HS PO 01/26/17 21:00 02/25/17 20:59 01/28/17 20:21 4 MG Ferrous Sulfate (Feosol Tab) 325 mg DAILY PO 01/27/17 09:00 02/26/17 08:59 01/29/17 07:56 325 MG Finasteride (Proscar Tab) 5 mg QAM PO 01/27/17 09:00 02/26/17 08:59 01/29/17 07:56 5 MG Hydralazine HCl (Apresoline Tab) 50 mg BID PO 01/26/17 21:00 02/25/17 20:59 01/29/17 07:56 50 MG Latanoprost (Xalatan Oph Soln) 1 drops DAILY OPB 01/27/17 09:00 02/26/17 08:59 01/29/17 07:57 1 DROPS Calcium/Vitamin D (Caltrate Plus Tab) 1 tab DAILY PO 01/27/17 09:00 02/26/17 08:59 01/29/17 07:56 1 TAB Cholecalciferol (Vitamin D Tab) 2,000 inter.unit DAILY PO 01/27/17 09:00 02/26/17 08:59 01/29/17 07:56 2,000 INTER.UNIT Cyanocobalamin (Vitamin B-12 Tab) 1,000 mcg DAILY PO 01/27/17 09:00 02/26/17 08:59 01/29/17 07:56 1,000 MCG Folic Acid (Folvite Tab) 1 mg QAM PO 01/27/17 09:00 02/26/17 08:59 01/29/17 07:56 1 MG Ipratropium [place] (Atrovent 0.02% 0.5MG/2.5ML Neb) 0.5 mg Q2H PRN INH 01/26/17 20:30 02/25/17 20:29 Levalbuterol (Xopenex 1.25MG/ 0.5ML Neb) 1.25 mg Q2H PRN INH 01/26/17 20:30 02/25/17 20:29 Ipratropium [place] (Atrovent 0.02% 0.5MG/2.5ML Neb) 0.5 mg Q4R INH 01/27/17 04:00 02/26/17 03:59 01/29/17 03:41 0.5 MG Levalbuterol (Xopenex 1.25MG/ 0.5ML Neb) 1.25 mg Q4R INH 01/27/17 04:00 02/26/17 03:59 01/29/17 03:41 1.25 MG Arformoterol Tartrate (Brovana 15MCG/ 2ML Neb Soln) 15 mcg BIDR INH 01/27/17 20:00 02/26/17 19:59 01/29/17 07:47 15 MCG Methylprednisolone Sodium Succinate 40 mg/Syringe 0.64 ml @ 1.5 mls/min Q12H IV 01/29/17 18:00 02/28/17 17:59 Vital Signs: Date Time Temp Pulse Resp B/P (MAP) Pulse Ox O2 Delivery O2 Flow Rate FiO2 01/29/17 08:01 36.6 76 18 142/68 (92) 95 01/29/17 08:00 Nasal Cannula 5.0 01/29/17 07:47 66 18 97 Nasal Cannula 5.0 01/29/17 04:20 36.8 68 20 155/75 (101) 97 Nasal Cannula 5.0 01/29/17 04:00 Nasal Cannula 5.0 01/29/17 03:41 74 18 97 Nasal Cannula 5.0 01/28/17 23:59 Nasal Cannula 5.0 01/28/17 23:56 37.1 70 17 149/79 (102) 94 Nasal Cannula 5.0 01/28/17 23:30 78 18 94 Nasal Cannula 5.0 01/28/17 20:00 94 Nasal Cannula 5.0 01/28/17 19:42 37.1 67 18 159/87 (111) 96 Nasal Cannula 5.0 01/28/17 19:13 77 18 97 Nasal Cannula 5.0 01/28/17 16:00 95 Nasal Cannula 5.0 01/28/17 15:29 36.7 79 20 132/69 (90) 95 Nasal Cannula 5.0 01/28/17 15:05 73 18 92 Nasal Cannula 4.0 01/28/17 12:00 Room Air 5.0 01/28/17 11:14 36.2 74 20 119/68 (85) 94 Nasal Cannula 4.5 01/28/17 11:13 68 18 95 Nasal Cannula 5.0
[2017-01-29] MEDS: AMOXICILLIN/CLAVULANATE TAB 875 MG TAB PO SCH ×2 (14:20→19:31)
[2017-01-29] MEDS: DOXAZosin MESYLATE TAB 4 MG TAB PO SCH (20:56)
[2017-01-30] VITALS (12 sets, daily range): BP systolic 127–159; BP diastolic 69–85; PULSE 68–100; TEMP 36.4–36.8; O2SAT 75–100
[2017-01-30] MEDS: LEVALBUTEROL 1.25MG/0.5ML NEB INH SCH ×5 (03:14→19:20)
[2017-01-30] MEDS: IPRATROPIUM BROMIDE NEB SOLN 0.02% 2.5 ML VIAL INH SCH ×5 (03:14→19:19)
[2017-01-30] MEDS: METHYLPREDNISOLONE IV 40 MG in SYRINGE 0 ML IV SCH (05:45)
[2017-01-30] MEDS: HEPARIN SOD 5000 UNIT/0.5 ML CARP SQ SCH ×3 (05:46→21:31)
[2017-01-30] MEDS: ARFORMOTEROL TART 15MCG/2ML VIAL INH SCH ×2 (07:00→19:19)
[2017-01-30] MEDS: ATORVASTATIN 20 MG TAB PO SCH (08:21)
[2017-01-30] MEDS: FERROUS SULFATE 325 MG TAB PO SCH (08:21)
[2017-01-30] MEDS: CALCIUM 600MG + VIT D 400 IU TAB PO SCH (08:21)
[2017-01-30] MEDS: CHOLECALCIFEROL 1000 INTER.UNIT TAB PO SCH (08:21)
[2017-01-30] MEDS: CYANOCOBALAMIN 500 MCG TAB (VIT B-12) PO SCH (08:21)
[2017-01-30] MEDS: AMOXICILLIN/CLAVULANATE TAB 875 MG TAB PO SCH ×2 (08:21→17:03)
[2017-01-30] MEDS: FINASTERIDE 5 MG TAB PO SCH (08:21)
[2017-01-30] MEDS: LATANOPROST 0.005% OP SOLN 2.5 ML BTL OPB SCH (08:22)
--- NOTE | 2017-01-30 15:48 | Pulmonology Progress Note ---
Pulmonary Progress Note Date of Service Jan 30, 2017. Attending Dr. Bell Subjective Patient notes he is back to his baseline today. Objective Patient sitting up today and able to complete full sentences without using accessory muscles I/Os: +843cc SaO2: 93-99% (5.0L) RR: 18 RESP: decreased BS bilaterally but improved air movement from previous exams Cardiac: S1S2 distant heart sounds Abdomen: +BS soft non-tender Medications #1 Prednisone 40 mg by mouth twice a day #2 Augmentin 875/125 twice a day day 2 of 10 #3 Brovana nebulizer twice a day #4 Xopenex/Atrovent nebulizer Cardiac Echo (01/27/17) LV: EF=55-60%, LVH, mild hypokinesis of the basal/mid inferior and apical álvarez RV: TAPSE > 1.5cm Grade I diastolic dysfunction CT Thorax (01/27/17) Sever Emphysema Possible Cor Pulmonale Possible aspiration Mediastinal and hilar adenopathy Cholelithiasis EKG (01/28/17) compared to (01/27/17) & (12/26/16) & (12/24/16) NSR with no acute changes Assessment & Plan 70-year-old male with end-stage COPD admitted for acute on chronic respiratory insufficiency: 1. Acute COPD: Patient is improving and most likely back to his baseline. As he is on oral steroids a suggest we drop the Prednisone to 60mg/QD and monitor over a 24 hour window. If the patient is stable then we can d/c him and cami his oral steroids over the following 4 weeks. 2. Chronic COPD Management: I believe this patient will be more compliant with nebulizer therapy and at this time a suggest we d/c him on Brovana BID and Duo- Nebs QID. He notes he will "most likely not use his inhalers." The patient also rebuses to use a BIPAP machine even though they have been shown to decrease re-exacerbation rates As an outpatient pulmonary re-hab and smoking cessation and be worked on/re-enforced. flutter valve and IS - patient agreeable to this. Data Medications: Current Inpatient Medications Medications (Trade) Dose Ordered Sig/Jono Route Start Time Stop Time Status Last Admin Dose Admin Heparin Sodium (Porcine) (Heparin Sq 5000 Unit/0.5ml) 5,000 unit Q8 SQ 01/26/17 22:00 02/25/17 21:59 01/30/17 14:14 5,000 UNIT Acetaminophen (Tylenol Tab) 650 mg Q4H PRN PO 01/26/17 19:30 02/25/17 19:29 Al Hydrox/Mg Hydrox/Simethicone (Maalox Max Susp) 15 ml Q4H PRN PO 01/26/17 19:30 02/25/17 19:29 Magnesium Hydroxide (Milk Of Magnesia Susp) 30 ml Q12H PRN PO 01/26/17 19:30 02/25/17 19:29 Ondansetron HCl (Zofran Inj) 4 mg Q6H PRN IV 01/26/17 19:30 02/25/17 19:29 Polyethylene (Miralax Powder Packet) 17 gm DAILY PRN PO 01/26/17 19:30 02/25/17 19:29 Albuterol (Ventolin Hfa Inhaler) 2 puffs Q6H PRN INH 01/26/17 19:30 02/25/17 19:29 Atorvastatin Calcium (Lipitor Tab) 20 mg QAM PO 01/27/17 09:00 02/26/17 08:59 01/30/17 08:21 20 MG Doxazosin Mesylate (Cardura Tab) 4 mg HS PO 01/26/17 21:00 02/25/17 20:59 01/29/17 20:56 4 MG Ferrous Sulfate (Feosol Tab) 325 mg DAILY PO 01/27/17 09:00 02/26/17 08:59 01/30/17 08:21 325 MG Finasteride (Proscar Tab) 5 mg QAM PO 01/27/17 09:00 02/26/17 08:59 01/30/17 08:21 5 MG Hydralazine HCl (Apresoline Tab) 50 mg BID PO 01/26/17 21:00 02/25/17 20:59 01/30/17 08:21 50 MG Latanoprost (Xalatan Oph Soln) 1 drops DAILY OPB 01/27/17 09:00 02/26/17 08:59 01/30/17 08:22 1 DROPS Calcium/Vitamin D (Caltrate Plus Tab) 1 tab DAILY PO 01/27/17 09:00 02/26/17 08:59 01/30/17 08:21 1 TAB Cholecalciferol (Vitamin D Tab) 2,000 inter.unit DAILY PO 01/27/17 09:00 02/26/17 08:59 01/30/17 08:21 2,000 INTER.UNIT Cyanocobalamin (Vitamin B-12 Tab) 1,000 mcg DAILY PO 01/27/17 09:00 02/26/17 08:59 01/30/17 08:21 1,000 MCG Folic Acid (Folvite Tab) 1 mg QAM PO 01/27/17 09:00 02/26/17 08:59 01/30/17 08:21 1 MG Ipratropium [place] (Atrovent 0.02% 0.5MG/2.5ML Neb) 0.5 mg Q2H PRN INH 01/26/17 20:30 02/25/17 20:29 Levalbuterol (Xopenex 1.25MG/ 0.5ML Neb) 1.25 mg Q2H PRN INH 01/26/17 20:30 02/25/17 20:29 Ipratropium [place] (Atrovent 0.02% 0.5MG/2.5ML Neb) 0.5 mg Q4R INH 01/27/17 04:00 02/26/17 03:59 01/30/17 15:15 0.5 MG Levalbuterol (Xopenex 1.25MG/ 0.5ML Neb) 1.25 mg Q4R INH 01/27/17 04:00 02/26/17 03:59 01/30/17 15:15 1.25 MG Arformoterol Tartrate (Brovana 15MCG/ 2ML Neb Soln) 15 mcg BIDR INH 01/27/17 20:00 02/26/17 19:59 01/30/17 07:00 15 MCG Amoxicillin/ Clavulanate Potassium (Augmentin Tab) 875 mg BIDM PO 01/29/17 14:00 02/08/17 13:59 01/30/17 08:21 875 MG Prednisone (PredniSONE TAB) 40 mg BID PO 01/30/17 21:00 03/01/17 20:59 I & O: 24-Hour Column 01/31/17 08:00 Intake Total 560 ml Output Total 1150 ml Balance -590 ml Vital Signs: Date Time Temp Pulse Resp B/P (MAP) Pulse Ox O2 Delivery O2 Flow Rate FiO2 01/30/17 15:16 81 18 97 Nasal Cannula 5.0 01/30/17 11:09 71 18 99 Nasal Cannula 5.0 01/30/17 08:00 Nasal Cannula 5.0 01/30/17 07:30 36.8 68 18 158/85 (109) 95 5.0 01/30/17 07:03 70 18 95 Nasal Cannula 5.0 01/30/17 03:15 74 18 93 Nasal Cannula 5.0 01/30/17 00:24 36.8 71 18 159/69 (99) 94 Nasal Cannula 5.0 01/30/17 00:00 95 Nasal Cannula 5.0 01/29/17 23:13 77 18 96 Nasal Cannula 5.0 01/29/17 21:00 68 172/89 (116) 01/29/17 20:00 95 Nasal Cannula 5.0 01/29/17 18:59 74 18 95 Nasal Cannula 5.0 01/29/17 16:07 36.7 67 20 123/66 (85) 90 Nasal Cannula 5.0 01/29/17 16:00 92 Nasal Cannula 5.0 40
--- NOTE | 2017-01-30 20:43 | Progress Note ---
Internal Med Progress Note Date of Service: Jan 30, 2017. Provider Documentation: SUBJECTIVE: feels much better breathing at his baseline on 5 L 02 not interested to go to rehab wants to return home aware that he may have to come back much more ill /obtunded if does not use CPAP /does no quit smoking pt says " he does not care" OBJECTIVE: Vital Signs-as noted below Exam: General-elderly male , chronically ill appearing , no sign of distress Eyes-sclera non icteric Lungs-diminished, coarse crackles at base Heart-regular S1/S2 Abdomen-soft, non tender Extremities-no rash or deformity Neuro-awake and alert , conversing , no confusion or lethargy , no focal deficit Lab data as noted below. ASSESSMENT & PLAN: ACUTE ON CHRONIC HYPOXEMIC RESPIRATORY FAILURE : respiratory status improved to baseline due to COPD exacerbation hx of advanced COPD , poorly complaint , ongoing smoking placed was on Bipap in ED-respiratory status improved markedly -after being on Bipap over night per pulmonology pt should continue Bipap at night for respiratory support pt is on PO Prednisone 40 mg BID will changed to 60 mg daily and observe for 24 hrs will be discharged on slow taper over 4 weeks Pulmonology eval requested -appreciate input CT chest : 1. Severe emphysema with evidence of previous right middle lobe resection. Correlation with the patient's surgical history will be required. 2. Cardiomegaly with evidence of pulmonary artery hypertension. 3. There is no airspace consolidation typical for pneumonia or pleural effusion. 4. Fluid/secretions are present within the left lower lobe airways. There is also fluid seen within the distal trachea and right mainstem bronchus. Correlate clinically for evidence of aspiration. 5. Mediastinal and probable hilar adenopathy is nonspecific. HYPOTENSION /LOW URINE OUT PUT : resolved with Iv hydration IVF d/naomy adequate urine out put Nicholson d/naomy ECHO : * Normal LV chamber size with moderate concentric LVH. * Normal LV systolic function, EF 55-60%. * Moderate hypokinesis of the basal/mid inferior wall and apical anteroseptal wall, otherwise, normal wall motion. * Grade I diastolic dysfunction. * Aortic valve sclerosis mild, without significant aortic valvular stenosis. OOB to chair , increase activity as tolerated pt refuses to have PT LETHARGY/ALTERED MENTAL STATUS : resolved, awake and alert , conversing appropriately refusing PT/OT refusing to quit smoking refusing to go to rehab possible metabolic encephalopathy due to respiratory failure /CO 2 retention pt is counselled repeatedly to use CPAP -not interested HTN : BP stable cont Hydralazine MEDICATION NON COMPLIANCE has been an ongoing issue family has been very frustrated with pt's care social service consul requested will need SNF-when medially appropriate -significant deconditioning CAITLIN/NON COMPLIANT WITH CPAP was ordered for CPAP 12-18 with 4 L 02 at night has not been using -as per daughter counselled to use CPAP at night -pt is reluctant TOBACCO ABUSE DISORDER : continues to smoke smoking cessation counselling provided multiple times in last admission pt is on 5 L home 02 pt refused to quit smoking -aware that it may lead him to terminal /end stage respiratory failure -leading to RA: hold MTX for acute illness cont Folic acid CODE STATUS : D/w Pt -awake and alert , able to make decision does not want any resuscitative measure /no life support pt is DNR /DNI pt advocate will be consulted to assist family and pt for advance directive DVT PROPHYLAXIS : Moderate to high risk sub q heparin DISPOSITION ; will benefit with SNF-pt is completely against it PT/OT eval requested refused PT OT eval appreciated : - several safety concerns at home with pt's smoking, med and CPAP noncompliance, and if his spouse/caregivers are able to provide necessary care. Pt would certainly benefit from a rehab stay to improve safety, balance, and activity tolerance for daily tasks. . will discharged home with home health /home PT when medically stable OOA is notified for safely concerns at home social service following for discharge planning Medicine follow up with Dr Edi Multani at [facility] Vital Signs: Date Time Temp Pulse Resp B/P (MAP) Pulse Ox O2 Delivery O2 Flow Rate FiO2 01/30/17 19:20 76 18 97 Nasal Cannula 5.0 01/30/17 16:24 36.7 69 18 158/74 (102) 100 Nasal Cannula 5.0 01/30/17 16:00 97 Nasal Cannula 5.0 40 01/30/17 15:16 81 18 97 Nasal Cannula 5.0 01/30/17 13:47 100 75 01/30/17 11:09 71 18 99 Nasal Cannula 5.0 01/30/17 08:00 Nasal Cannula 5.0 01/30/17 07:30 36.8 68 18 158/85 (109) 95 5.0 6/30/17 07:03 70 18 95 Nasal Cannula 5.0 01/30/17 03:15 74 18 93 Nasal Cannula 5.0 01/30/17 00:24 36.8 71 18 159/69 (99) 94 Nasal Cannula 5.0 01/30/17 00:00 95 Nasal Cannula 5.0 01/29/17 23:13 77 18 96 Nasal Cannula 5.0 01/29/17 21:00 68 172/89 (116)
[2017-01-30] MEDS: DOXAZosin MESYLATE TAB 4 MG TAB PO SCH (21:27)
[2017-01-31] VITALS (9 sets, daily range): BP systolic 146–151; BP diastolic 76–82; PULSE 69–84; TEMP 36.5–37; O2SAT 96–98
[2017-01-31] MEDS: IPRATROPIUM BROMIDE NEB SOLN 0.02% 2.5 ML VIAL INH SCH ×7 (00:05→23:25)
[2017-01-31] MEDS: LEVALBUTEROL 1.25MG/0.5ML NEB INH SCH ×7 (00:06→23:25)
[2017-01-31] MEDS: HEPARIN SOD 5000 UNIT/0.5 ML CARP SQ SCH ×3 (06:05→21:21)
[2017-01-31] MEDS: ARFORMOTEROL TART 15MCG/2ML VIAL INH SCH ×2 (07:11→19:21)
[2017-01-31] MEDS: CYANOCOBALAMIN 500 MCG TAB (VIT B-12) PO SCH (07:47)
[2017-01-31] MEDS: AMOXICILLIN/CLAVULANATE TAB 875 MG TAB PO SCH ×2 (07:47→16:45)
[2017-01-31] MEDS: FINASTERIDE 5 MG TAB PO SCH (07:47)
[2017-01-31] MEDS: CHOLECALCIFEROL 1000 INTER.UNIT TAB PO SCH (07:47)
[2017-01-31] MEDS: FERROUS SULFATE 325 MG TAB PO SCH (07:47)
[2017-01-31] MEDS: ATORVASTATIN 20 MG TAB PO SCH (07:48)
[2017-01-31] MEDS: CALCIUM 600MG + VIT D 400 IU TAB PO SCH (07:48)
[2017-01-31] MEDS: LATANOPROST 0.005% OP SOLN 2.5 ML BTL OPB SCH (07:48)
--- NOTE | 2017-01-31 17:21 | Progress Note ---
Internal Med Progress Note Date of Service: Jan 31, 2017. Provider Documentation: SUBJECTIVE: no complain of SOB or cough sitting up on side of bed on 5 L o2 ( pt's baseline ) wants to go home tomorrow OBJECTIVE: Vital Signs-as noted below Exam: General-elderly male , chronically ill appearing , no sign of distress Eyes-sclera non icteric Lungs-diminished, no wheeze or rales Heart-regular S1/S2 Abdomen-soft, non tender Extremities-no rash or deformity Neuro-awake and alert , conversing , no confusion or lethargy , no focal deficit Lab data as noted below. ASSESSMENT & PLAN: ACUTE ON CHRONIC HYPOXEMIC RESPIRATORY FAILURE : resolved respiratory status improved to baseline due to COPD exacerbation hx of advanced COPD , poorly complaint , ongoing smoking placed was on Bipap in ED-respiratory status improved markedly -after being on Bipap over night per pulmonology pt should continue Bipap at night for respiratory support pt is on PO Prednisone 60 mg daily will be discharged on slow taper over 4 weeks Pulmonology eval requested -appreciate input CT chest : 1. Severe emphysema with evidence of previous right middle lobe resection. Correlation with the patient's surgical history will be required. 2. Cardiomegaly with evidence of pulmonary artery hypertension. 3. There is no airspace consolidation typical for pneumonia or pleural effusion. 4. Fluid/secretions are present within the left lower lobe airways. There is also fluid seen within the distal trachea and right mainstem bronchus. Correlate clinically for evidence of aspiration. 5. Mediastinal and probable hilar adenopathy is nonspecific. HYPOTENSION /LOW URINE OUT PUT : resolved with Iv hydration IVF d/naomy adequate urine out put Nicholson d/naomy ECHO : * Normal LV chamber size with moderate concentric LVH. * Normal LV systolic function, EF 55-60%. * Moderate hypokinesis of the basal/mid inferior wall and apical anteroseptal wall, otherwise, normal wall motion. * Grade I diastolic dysfunction. * Aortic valve sclerosis mild, without significant aortic valvular stenosis. OOB to chair , increase activity as tolerated pt refuses to have PT LETHARGY/ALTERED MENTAL STATUS : resolved, awake and alert , conversing appropriately refusing PT/OT refusing to quit smoking refusing to go to rehab possible metabolic encephalopathy due to respiratory failure /CO 2 retention pt is counselled repeatedly to use CPAP -not interested HTN : BP stable cont Hydralazine MEDICATION NON COMPLIANCE has been an ongoing issue family has been very frustrated with pt's care social service consul requested will need SNF-when medially appropriate -significant deconditioning -pt declined to go to SNF CAITLIN/NON COMPLIANT WITH CPAP was ordered for CPAP -18 with 4 L 02 at night has not been using -as per daughter counselled to use CPAP at night -pt is reluctant TOBACCO ABUSE DISORDER : continues to smoke smoking cessation counselling provided multiple times in last admission pt is on 5 L home 02 pt refused to quit smoking -aware that it may lead him to terminal /end stage respiratory failure -leading to RA: hold MTX for acute illness cont Folic acid CODE STATUS : D/w Pt -awake and alert , able to make decision does not want any resuscitative measure /no life support pt is DNR /DNI pt advocate will be consulted to assist family and pt for advance directive DVT PROPHYLAXIS : Moderate to high risk sub q heparin DISPOSITION ; will benefit with SNF-pt is completely against it PT/OT eval requested refused PT OT eval appreciated : - several safety concerns at home with pt's smoking, med and CPAP noncompliance, and if his spouse/caregivers are able to provide necessary care. Pt would certainly benefit from a rehab stay to improve safety, balance, and activity tolerance for daily tasks. . will discharged home with home health /home PT tomorrow OOA is notified for safely concerns at home social service following for discharge planning Medicine follow up with Dr Edi Multani at [facility] Vital Signs: Date Time Temp Pulse Resp B/P (MAP) Pulse Ox O2 Delivery O2 Flow Rate FiO2 01/31/17 15:33 36.9 76 18 146/76 (99) 98 Nasal Cannula 3.0 01/31/17 15:17 80 18 97 Nasal Cannula 5.0 01/31/17 08:00 Nasal Cannula 5.0 01/31/17 07:53 36.5 69 18 149/77 (101) 97 Nasal Cannula 5.0 01/31/17 07:11 75 18 97 Nasal Cannula 5.0 01/31/17 00:06 84 18 97 Nasal Cannula 5.0 01/31/17 00:00 Nasal Cannula 5.0 01/30/17 23:14 36.4 74 18 127/73 (91) 97 Nasal Cannula 5.0 01/30/17 19:20 76 18 97 Nasal Cannula 5.0
--- NOTE | 2017-01-31 17:24 | Discharge Instructions ---
Discharge Instructions Date of Service Jan 31, 2017. Admission Reason for Admission: Copd Exacerbation Discharge Discharge Diagnosis / Problem: ACUTE ON CHRONIC RESPIRATOR FAILURE /COPD EXACERBATION Discharge Goals Goal(s): Decrease discomfort, Diagnostic testing, Therapeutic intervention Activity Recommendations Activity Limitations: resume your previous activity . Instructions / Follow-Up Instructions / Follow-Up HOSPITAL FOLLOW UP ON 02/06/2017 @ 10:[address] Yves Gomez MD [facility] NEED TO QUIT SMOKING IT IS VERY DANGEROUS TO SMOKE WHILE ON 5 L O2 -CAN CAUSE FIRE /BURN ANY MOMENT NEED TO USE CPAP AT NIGHT TO PREVENT RESPIRATORY FAILURE /CO2 ( CARBON DI OXIDE RETENTION ) Current Hospital Diet Patient's current hospital diet: AHA Diet (Heart Healthy) Discharge Diet Recommended Diet: AHA Diet (Heart Healthy) Pending Studies Studies pending at discharge: no Medical Emergencies . Who to Call and When: Medical Emergencies: If at any time you feel your situation is an emergency, please call 911 immediately. . Non-Emergent Contact Non-Emergency issues call your: Primary Care Provider . . "Provider Documentation" section prepared by Macey Burroughs. . VTE Core Measure Inpt VTE Proph given/why not?: Unfractionated heparin SQ
[2017-01-31] MEDS: DOXAZosin MESYLATE TAB 4 MG TAB PO SCH (20:43)
[2017-02-01] MEDS: IPRATROPIUM BROMIDE NEB SOLN 0.02% 2.5 ML VIAL INH SCH ×3 (02:00→11:17)
[2017-02-01] MEDS: LEVALBUTEROL 1.25MG/0.5ML NEB INH SCH ×3 (02:00→11:17)
[2017-02-01] MEDS: HEPARIN SOD 5000 UNIT/0.5 ML CARP SQ SCH (06:20)
[2017-02-01] MEDS: ARFORMOTEROL TART 15MCG/2ML VIAL INH SCH (07:10)
[2017-02-01 07:13] VITALS: PULSE 71; O2SAT 99
[2017-02-01] MEDS: AMOXICILLIN/CLAVULANATE TAB 875 MG TAB PO SCH (07:50)
[2017-02-01] MEDS: ATORVASTATIN 20 MG TAB PO SCH (07:51)
[2017-02-01] MEDS: CALCIUM 600MG + VIT D 400 IU TAB PO SCH (07:51)
[2017-02-01] MEDS: CHOLECALCIFEROL 1000 INTER.UNIT TAB PO SCH (07:51)
[2017-02-01] MEDS: FINASTERIDE 5 MG TAB PO SCH (07:51)
[2017-02-01] MEDS: CYANOCOBALAMIN 500 MCG TAB (VIT B-12) PO SCH (07:51)
[2017-02-01] MEDS: FERROUS SULFATE 325 MG TAB PO SCH (07:51)
[2017-02-01] MEDS: LATANOPROST 0.005% OP SOLN 2.5 ML BTL OPB SCH (07:51)
[2017-02-01 07:59] VITALS: BP 143/76; PULSE 68; TEMP 36.4; O2SAT 100
--- NOTE | 2017-02-01 09:09 | Progress Note ---
Internal Med Progress Note Date of Service: Feb 01, 2017. Provider Documentation: SUBJECTIVE: feels fine , no complain of SOB or cough respiratory status at baseline waiting for daughter to take him home will be discharge home with home health today OBJECTIVE: Vital Signs-as noted below Exam: General-elderly male , chronically ill appearing , no sign of distress Eyes-sclera non icteric Lungs-diminished, no wheeze or rales Heart-regular S1/S2 Abdomen-soft, non tender Extremities-no rash or deformity Neuro-awake and alert , conversing , no confusion or lethargy , no focal deficit Lab data as noted below. ASSESSMENT & PLAN: ACUTE ON CHRONIC HYPOXEMIC RESPIRATORY FAILURE : resolved respiratory status improved to baseline due to COPD exacerbation hx of advanced COPD , poorly complaint , ongoing smoking placed was on Bipap in ED-respiratory status improved markedly -after being on Bipap over night per pulmonology pt should continue Bipap at night for respiratory support pt is on PO Prednisone 60 mg daily will be discharged on slow taper over 4 weeks Pulmonology eval requested -appreciate input CT chest : 1. Severe emphysema with evidence of previous right middle lobe resection. Correlation with the patient's surgical history will be required. 2. Cardiomegaly with evidence of pulmonary artery hypertension. 3. There is no airspace consolidation typical for pneumonia or pleural effusion. 4. Fluid/secretions are present within the left lower lobe airways. There is also fluid seen within the distal trachea and right mainstem bronchus. Correlate clinically for evidence of aspiration. 5. Mediastinal and probable hilar adenopathy is nonspecific. HYPOTENSION /LOW URINE OUT PUT : resolved with Iv hydration IVF d/naomy adequate urine out put Nicholson d/naomy ECHO : * Normal LV chamber size with moderate concentric LVH. * Normal LV systolic function, EF 55-60%. * Moderate hypokinesis of the basal/mid inferior wall and apical anteroseptal wall, otherwise, normal wall motion. * Grade I diastolic dysfunction. * Aortic valve sclerosis mild, without significant aortic valvular stenosis. OOB to chair , increase activity as tolerated pt refuses to have PT LETHARGY/ALTERED MENTAL STATUS : resolved, awake and alert , conversing appropriately refusing PT/OT refusing to quit smoking refusing to go to rehab possible metabolic encephalopathy due to respiratory failure /CO 2 retention pt is counselled repeatedly to use CPAP -not interested HTN : BP stable cont Hydralazine MEDICATION NON COMPLIANCE has been an ongoing issue family has been very frustrated with pt's care social service consul requested will need SNF-when medially appropriate -significant deconditioning -pt declined to go to SNF CAITLIN/NON COMPLIANT WITH CPAP was ordered for CPAP 07-20 with 4 L 02 at night has not been using -as per daughter counselled to use CPAP at night -pt is reluctant TOBACCO ABUSE DISORDER : continues to smoke smoking cessation counselling provided multiple times in last admission pt is on 5 L home 02 pt refused to quit smoking -aware that it may lead him to terminal /end stage respiratory failure -leading to RA: resumed MTX on discharge cont Folic acid CODE STATUS : D/w Pt -awake and alert , able to make decision does not want any resuscitative measure /no life support pt is DNR /DNI DVT PROPHYLAXIS : Moderate to high risk sub q heparin DISPOSITION ; will benefit with SNF-pt is completely against it PT/OT eval requested refused PT OT eval appreciated : - several safety concerns at home with pt's smoking, med and CPAP noncompliance, and if his spouse/caregivers are able to provide necessary care. Pt would certainly benefit from a rehab stay to improve safety, balance, and activity tolerance for daily tasks. . will discharged home with home health /home PT today OOA is notified for safely concerns at home social service following for discharge planning Medicine follow up with Dr Edi Multani at [facility] Daughter updated will be in hospital later today to provide patient ride to home Vital Signs: Date Time Temp Pulse Resp B/P (MAP) Pulse Ox O2 Delivery O2 Flow Rate FiO2 02/01/17 08:00 Nasal Cannula 5.0 02/01/17 07:59 36.4 68 18 143/76 (98) 100 Nasal Cannula 5.0 02/01/17 07:13 71 18 99 Nasal Cannula 5.0 02/01/17 00:00 Nasal Cannula 5.0 01/31/17 23:32 37.0 70 18 151/79 (103) 98 Room Air 5.0 01/31/17 23:25 80 18 96 Nasal Cannula 5.0 01/31/17 20:44 76 150/82 (104) 01/31/17 20:00 Nasal Cannula 5.0 01/31/17 19:21 82 18 96 Nasal Cannula 5.0 01/31/17 16:20 Nasal Cannula 5.0 01/31/17 15:33 36.9 76 18 146/76 (99) 98 Nasal Cannula 3.0 01/31/17 15:17 80 18 97 Nasal Cannula 5.0
[2017-02-01] MEDS ORDERED: PRED20TA2 PO (09:13)
[2017-02-01] MEDS ORDERED: ARFO15NE NEB (09:13)
[2017-02-01] MEDS ORDERED: IPRASOL4 INH (09:13)
[2017-02-01] MEDS ORDERED: NEBMAC (09:15)
--- NOTE | 2017-02-01 09:16 | Discharge Summary ---
Discharge Summary Date of Service Feb 01, 2017. Discharge Summary Admission Date: Jan 26, 2017 at 18:43 Discharge Date: Feb 01, 2017 Discharge Disposition: Home with services Principal Diagnosis: ACUTE ON CHRONIC RESPIRATOR FAILURE /COPD EXACERBATION Procedures: CT chest : 1. Severe emphysema with evidence of previous right middle lobe resection. Correlation with the patient's surgical history will be required. 2. Cardiomegaly with evidence of pulmonary artery hypertension. 3. There is no airspace consolidation typical for pneumonia or pleural effusion. 4. Fluid/secretions are present within the left lower lobe airways. There is also fluid seen within the distal trachea and right mainstem bronchus. Correlate clinically for evidence of aspiration. 5. Mediastinal and probable hilar adenopathy is nonspecific. ECHO : * Normal LV chamber size with moderate concentric LVH. * Normal LV systolic function, EF 55-60%. * Moderate hypokinesis of the basal/mid inferior wall and apical anteroseptal wall, otherwise, normal wall motion. * Grade I diastolic dysfunction. * Aortic valve sclerosis mild, without significant aortic valvular stenosis. Consultations: PULMONOLOGY DR YIN Medication Reconciliation New Medications: Arformoterol Tartrate (Brovana) 15 Mcg/2 Ml Neb 1 VIAL NEB BID for 90 Days, #320 ML 3 Refills Ipratropium-Albuterol (Duoneb) 3 Ml Nebu 1 TREATMENT INH Q4H PRN for Wheezing for 30 Days, #320 ML Nebulizer Machine (Home Use) (Nebulizer Machine (Home Use) ) Mis EA N/A UD, #1 COPD/CHRONIC RESPIRATORY FAILURE Prednisone (Prednisone Tab) 20 Mg Tab 3 TAB PO DAILY for 30 Days, #90 TAB 60 mg for 7 days 40 mg for 7 days 30 mg for 7 days 20 mg for 7 days 10 mg for 7 days then stop Continued Medications: Albuterol Hfa (Ventolin Hfa) 200 Puffs/35929 Mcg Aers 2 PUFFS INH Q6H PRN for SOB/Wheezing, INHALER Atorvastatin (Lipitor) 20 Mg Tab 20 MG PO QAM, TAB Azithromycin (Zithromax) 250 Mg Tab 250 MG PO 3XWK, TAB TAKE THIS MEDICATION EVERY THURSDAY,THURSDAY AND THURSDAY Calcium Carbonate-Vitamin D (Calcium + D) 1 Tab Tab 1 TAB PO DAILY 600 MG/800 IU Cholecalciferol (Vitamin D3) 2,000 Unit Cap 2000 INTER.UNIT PO DAILY, CAP Cyanocobalamin (Vitamin B12) 1,000 Mcg Tab 1000 MCG PO DAILY Doxazosin Mesylate (Cardura) 4 Mg Tab 4 MG PO HS, TAB Doxycycline Hyclate (Vibramycin) 100 Mg Cap 100 MG PO BID PRN for Rescue Kit for 10 Days, CAP Ferrous Sulfate (Ferrous Sulfate) 325 Mg Tab 325 MG PO DAILY TAKE THIS MEDICATION ONCE DAILY WITH LUNCH Finasteride (Proscar) 5 Mg Tab 5 MG PO QAM, TAB Fluticasone Furoate-Vilanterol (Breo Ellipta) 1 Inh Inh 1 PUFF INH DAILY 100-25 MCG Folic Acid (Folic Acid) 800 Mcg Tab 80 MCG PO 6XWK DO NOT TAKE ON THURSDAY Furosemide (Furosemide) 20 Mg Tab 40 MG PO 3XWK Take 2 tabs 3 days per week and 1 tab all other days Furosemide (Lasix) 20 Mg Tab 20 MG PO 4XWK, TAB Take 2 tabs 3 days per week and 1 tab all other days Hydralazine Hcl (Apresoline) 50 Mg Tab 50 MG PO BID, TAB Latanoprost (Xalatan 0.005% Oph Celia) 0.005 % Celia 1 DROP OPB DAILY, ML Levalbuterol Hcl (Levalbuterol) 1.25 Mg/0.5 Ml Neb 1 VIAL NEB Q4H PRN for Wheezing Methotrexate (Methotrexate) 2.5 Mg Tab 12.5 MG PO WK, TAB Tiotropium Spiritwood (Spiriva Handihaler) 30 Puff/540 Mcg Aerp 1 CAP INH DAILY, INHALER Discontinued Medications: Sulindac (Sulindac) 200 Mg Tab 200 MG PO BID Referrals At Discharge Follow up Referrals: Physician Referral - 02/06/17 with Yves Gomez M.D. Marketing Communications Associate Referral - Within 6 Months with Isacc Yin MD Admission Information HPI (per Admitting provider): This is a 71 Yo M with past medical hx of severe advanced COPD on 5 L home 02 / chronic hypoxemic respiratory failure , CAITLIN , non compliant with CPAP , HTN , Rheumatoid arthritis, CKD stage 3 , CAD hx of remote NSTEMI sent to ED by - called 911 as pt was very SOB , lethargic at home for past few days -symptom got worse today . Information obtained form ER physician and Daughter Poppy Richards on phone - as pt remained pretty lethargic on Bipap , minimally responsive Per Daughter -pt was discharged form [facility] on 01/02/17 with similar scenario- COPD exacerbation , difficulty breathing , generalized weakness , refused to go to SNF his condition has not improved since discharge -has been sleeping through the day mostly , not taking any of his meds , not using CPAP continued to smoke when he gets up -while on 5 L 02 Family has been very frustrated with him today -pt started to having uncontrolled shaking, barely can talk , called 911 per ER physician -pt was arousable upon arrival , given 1 hr long neb tx /Solu medrol 125 mg X1 later he became very lethergic -pt was put on Bipap ABG ordered -result was still pending -during my interview pt was able to move his limbs spontaneously wakes up briefly with sternal rub -when asking -if he is having any shortness of breath -" no I do not " was the answer was hypoxic on arrival SPo2 improved to 90 % with Bipap Physical Exam (per Admitting): General Appearance: + pertinent finding (chronically ill appearing , obtunded ) Eyes: + pertinent finding (sclera injected ) Respiratory/Chest: + respiratory distress, + decreased breath sounds, + wheezing Cardiovascular: + tachycardia Abdomen/GI: soft Extremities/Musculoskelatal: no pedal edema Neurologic/Psych: + disoriented, + pertinent finding (letehrgic ) Hospital Course ACUTE ON CHRONIC HYPOXEMIC RESPIRATORY FAILURE : resolved respiratory status improved to baseline due to COPD exacerbation hx of advanced COPD , poorly complaint , ongoing smoking placed was on Bipap in ED-respiratory status improved markedly -after being on Bipap over night per pulmonology pt should continue Bipap at night for respiratory support pt is on PO Prednisone 60 mg daily will be discharged on slow taper over 4 weeks Pulmonology eval requested -appreciate input CT chest : 1. Severe emphysema with evidence of previous right middle lobe resection. Correlation with the patient's surgical history will be required. 2. Cardiomegaly with evidence of pulmonary artery hypertension. 3. There is no airspace consolidation typical for pneumonia or pleural effusion. 4. Fluid/secretions are present within the left lower lobe airways. There is also fluid seen within the distal trachea and right mainstem bronchus. Correlate clinically for evidence of aspiration. 5. Mediastinal and probable hilar adenopathy is nonspecific. HYPOTENSION /LOW URINE OUT PUT : resolved with Iv hydration IVF d/naomy adequate urine out put Nicholson d/naomy ECHO : * Normal LV chamber size with moderate concentric LVH. * Normal LV systolic function, EF 55-60%. * Moderate hypokinesis of the basal/mid inferior wall and apical anteroseptal wall, otherwise, normal wall motion. * Grade I diastolic dysfunction. * Aortic valve sclerosis mild, without significant aortic valvular stenosis. OOB to chair , increase activity as tolerated pt refuses to have PT LETHARGY/ALTERED MENTAL STATUS : resolved, awake and alert , conversing appropriately refusing PT/OT refusing to quit smoking refusing to go to rehab possible metabolic encephalopathy due to respiratory failure /CO 2 retention pt is counselled repeatedly to use CPAP -not interested HTN : BP stable cont Hydralazine MEDICATION NON COMPLIANCE has been an ongoing issue family has been very frustrated with pt's care social service consul requested will need SNF-when medially appropriate -significant deconditioning -pt declined to go to SNF CAITLIN/NON COMPLIANT WITH CPAP was ordered for CPAP 12-18 with 4 L 02 at night has not been using -as per daughter counselled to use CPAP at night -pt is reluctant TOBACCO ABUSE DISORDER : continues to smoke smoking cessation counselling provided multiple times in last admission pt is on 5 L home 02 pt refused to quit smoking -aware that it may lead him to terminal /end stage respiratory failure -leading to RA: resumed MTX on discharge cont Folic acid CODE STATUS : D/w Pt -awake and alert , able to make decision does not want any resuscitative measure /no life support pt is DNR /DNI DVT PROPHYLAXIS : Moderate to high risk sub q heparin DISPOSITION ; will benefit with SNF-pt is completely against it PT/OT eval requested refused PT OT eval appreciated : - several safety concerns at home with pt's smoking, med and CPAP noncompliance, and if his spouse/caregivers are able to provide necessary care. Pt would certainly benefit from a rehab stay to improve safety, balance, and activity tolerance for daily tasks. . will discharged home with home health /home PT today OOA is notified for safely concerns at home social service following for discharge planning Medicine follow up with Dr Edi Multani at [facility] Daughter updated will be in hospital later today to provide patient ride to home Total time spent on discharge = 40 MINS This includes examination of the patient, discharge planning, medication reconciliation, and communication with other providers. Discharge Instructions DI: Medical v4 Discharge Instructions Date of Service Jan 31, 2017. Admission Reason for Admission: Copd Exacerbation Discharge Discharge Diagnosis / Problem: ACUTE ON CHRONIC RESPIRATOR FAILURE /COPD EXACERBATION Discharge Goals Goal(s): Decrease discomfort, Diagnostic testing, Therapeutic intervention Activity Recommendations Activity Limitations: resume your previous activity . Instructions / Follow-Up Instructions / Follow-Up HOSPITAL FOLLOW UP ON 02/06/2017 @ 10:[address] Yves Gomez MD [facility] NEED TO QUIT SMOKING IT IS VERY DANGEROUS TO SMOKE WHILE ON 5 L O2 -CAN CAUSE FIRE /BURN ANY MOMENT NEED TO USE CPAP AT NIGHT TO PREVENT RESPIRATORY FAILURE /CO2 ( CARBON DI OXIDE RETENTION ) Current Hospital Diet Patient's current hospital diet: AHA Diet (Heart Healthy) Discharge Diet Recommended Diet: AHA Diet (Heart Healthy) Pending Studies Studies pending at discharge: no Medical Emergencies . Who to Call and When: Medical Emergencies: If at any time you feel your situation is an emergency, please call 911 immediately. . Non-Emergent Contact Non-Emergency issues call your: Primary Care Provider . . "Provider Documentation" section prepared by Macey Burroughs. . VTE Core Measure Inpt VTE Proph given/why not?: Unfractionated heparin SQ Additional Copies To Isacc Yin MD Oesterling, Brett, M.D.
[2017-02-01 09:23] VITALS: BP 143/76; PULSE 68; TEMP 36.4; O2SAT 100
[2017-02-01 11:18] VITALS: PULSE 84; O2SAT 96
== END 2017-02-01 12:15 | disposition home health service (06) | DRG 189 ==
LOC: EDBD 16:22 → C.EDB 16:23 → UNDOADMIN 18:43 → C.2T 18:43 → ENRESERV 19:04 → C.MS2W 01-29 08:36 → C.2T 01-29 08:36 → ENRESERV 01-29 09:19
PROVIDERS: ADMIT Hospitalist; ATTEND Hospitalist
DX: J96.21 Acute and chronic respiratory failure with hypoxia (principal); G93.41 Metabolic encephalopathy; J44.1 Chronic obstructive pulmonary disease with (acute) exacerbation; E87.2 Acidosis; I95.9 Hypotension, unspecified; R39.89 Other symptoms and signs involving the genitourinary system; I27.2 Other secondary pulmonary hypertension; I13.10 Hypertensive heart and chronic kidney disease without heart failure, with stage 1 through stage 4 chronic kidney disease, or unspecified chronic kidney disease; G47.33 Obstructive sleep apnea (adult) (pediatric); M06.9 Rheumatoid arthritis, unspecified; N18.3 Chronic kidney disease, stage 3 (moderate); I25.2 Old myocardial infarction; I25.10 Atherosclerotic heart disease of native coronary artery without angina pectoris; E55.9 Vitamin D deficiency, unspecified; N40.0 Benign prostatic hyperplasia without lower urinary tract symptoms; K21.9 Gastro-esophageal reflux disease without esophagitis; M81.0 Age-related osteoporosis without current pathological fracture; F17.200 Nicotine dependence, unspecified, uncomplicated; Z91.19 Patient's noncompliance with other medical treatment and regimen; Z91.128 Patient's intentional underdosing of medication regimen for other reason; Z51.81 Encounter for therapeutic drug level monitoring; Z79.899 Other long term (current) drug therapy; Z79.52 Long term (current) use of systemic steroids; Z99.81 Dependence on supplemental oxygen; Z86.711 Personal history of pulmonary embolism; Z66 Do not resuscitate; Z83.3 Family history of diabetes mellitus; Z82.49 Family history of ischemic heart disease and other diseases of the circulatory system

== ENCOUNTER 2017-02-16 12:56 | Emergency (ER) | payer OTHER ==
[~2017-02-16] VITALS: Ht 165.1 cm; Wt 92.9 kg
[~2017-02-16 12:56] MED LIST changes: +ARFO15NE NEB; -ASPI81TA28 PO; +ATOR-22 PO; -CALC600T PO; +CALC600T9 PO; -CHOL100027 PO; +CHOL2000 PO; -CLN200 PO; +CYAN100020 PO; -CYAN10005 PO; +DOXA4TAB2 PO; +DOXY100C2 PO; +FINA5TAB PO; +FLUT1INH INH; +FOLI800T PO; +FURO-85 PO; +HYDR-4717 PO; +IPRASOL4 INH; -OMEP20CA9 PO; -PRED10TA PO; +PRED20TA2 PO
[2017-02-16 13:08] VITALS: Ht 165.1 cm; Wt 92.9 kg
[2017-02-16 13:15] VITALS: O2SAT 97
--- NOTE | 2017-02-16 13:44 | DIAGNOSTIC IMAGING REPORT ---
CHEST 2 VIEWS ROUTINE CLINICAL HISTORY: sob dyspnea COMPARISON STUDY: 01/27/2017 FINDINGS: Mild stable cardia megaly. Bibasilar atelectatic and interstitial change unaltered from the prior study. Slight blunting of the right lateral calcific angle area emphysematous change. Pulmonary apices are clear. IMPRESSION: Chronic basilar interstitial change with a small right pleural effusion. Moderate stable cardia megaly. The above report was generated using voice recognition software. It may contain grammatical, syntax or spelling errors. Electronically signed by: Garrick Harris M.D. 02/16/2017 1:42 PM Dictated Date/Time: 02/16/2017 1:41 PM
[2017-02-16 14:04] LABS: HEMATOCRIT 37.5 % (42-52); MEAN CELL VOLUME 88.7 fL (80-100); MEAN CORPUSCULAR HEMOGLOBIN 25.5 pg (25-34); MEAN CORPUSCULAR HGB CONC 28.8 g/dl (32-36); MEAN PLATELET VOLUME 9.5 fL (7.4-10.4); PLATELET COUNT 203 K/uL (130-400); RED BLOOD COUNT 4.23 M/uL (4.7-6.1); WHITE BLOOD COUNT 9.18 K/uL (4.8-10.8)
[2017-02-16 14:06] LABS: ALT/SGPT 21 U/L (12-78); BLOOD UREA NITROGEN 14 mg/dl (7-18); BUN/CREATININE RATIO 16.3 (10-20); CALCIUM 8.3 mg/dl (8.5-10.1); CARBON DIOXIDE 36 mmol/L (21-32); CHLORIDE 95 mmol/L (98-107); CREATININE 0.86 mg/dl (0.60-1.40); GLUCOSE 113 mg/dl (70-99); SODIUM 132 mmol/L (136-145)
[2017-02-16 14:07] LABS: ALB/GLOB RATIO 0.9 (0.9-2); ALKALINE PHOSPHATASE 85 U/L (45-117)
[2017-02-16] MEDS ORDERED: FOLI1TAB7 PO (14:07)
[2017-02-16] MEDS ORDERED: PRLSR20 PO (14:07)
[2017-02-16] MEDS ORDERED: FLUT1INH INH (14:07)
[2017-02-16] MEDS ORDERED: ASPCH81X PO (14:07)
[2017-02-16 14:23] LABS: COMPLETE YES; EOS % 1.3 %; IG% 0.5 %; LYMPH % 10.2 %; LYMPH ABS # 0.94 K/uL (1.2-3.4); MONO % 7.4 %; NEUT % 80.6 %
[2017-02-16] MEDS ORDERED: FUROSEMIDE 40 MG/4 ML VIAL IV STA (14:23)
[2017-02-16] MEDS ORDERED: ALBUT/IPRATROP 3MG/0.5MG NEB 3 ML VIAL INH ONE (14:30)
[2017-02-16 14:46] VITALS: PULSE 90; O2SAT 97
[2017-02-16 15:03] LABS: POTASSIUM 4.5 mmol/L (3.5-5.1)
[2017-02-16 15:42] LABS: URINE APPEARANCE CLEAR (CLEAR); URINE BILIRUBIN NEG (NEG); URINE COLOR YELLOW; URINE NITRITE NEG (NEG); URINE PH 5.5 (4.5-7.5); URINE SPECIFIC GRAVITY 1.016 (1.000-1.030); UROBILINOGEN NEG (NEG); ZZUR CULT IF INDIC CLEAN CATCH NO
[2017-02-16 15:53] LABS: MANUAL MICROSCOPIC REQUIRED? NO; REVIEW REQ? NO
--- NOTE | 2017-02-16 17:02 | EMERGENCY ROOM VISIT NOTE ---
History Report prepared by Jennifer: Elia Burks Under the Supervision of: Dr. Saeid Vera M.D. First contact with patient: 12:58 Stated Complaint: EDEMA/SOB History of Present Illness The patient is a 71 year old male who presents to the Emergency Room via EMS with complaints of slightly worsened shortness of breathing occurring today. He also has a dry cough. The patient is on 5 L oxygen at home. He smokes half a pack a day. He received DuoNeb and Albuterol treatment in route to the Emergency Room with some relief. As per EMS, the patient's Home Health nurse noted that the peripheral edema was significantly worse today. He denies fevers , chills, abdominal pain, or any other complaints. Source of History: patient, EMS Onset: today Position: other (global) Quality: other (shortness of breath) Modifying Factors (Relieving): other (DuoNeb and Albuterol treatment in route to the Emergency Room with some relief) Associated Symptoms: + cough (dry), No fevers, No chills, No abdominal pain Review of Systems All systems have been listed, reviewed, and are negative other than those previously mentioned. Please see Additional Medical History Sheet. Past Medical & Surgical Medical Problems: (1) BPH (benign prostatic hyperplasia) (2) Cataract (3) COPD exacerbation (4) COPD, moderate (5) GERD (gastroesophageal reflux disease) (6) Glaucoma (7) Hypertension (8) Non-ST elevation [place] (NSTEMI) (9) Osteoporosis (10) Pulmonary embolism (11) Rheumatoid arthritis (12) Vitamin D deficiency Surgical Problems: (1) H/O eye surgery Social History Problems: (1) Tobacco abuse Family History Aneurysm FATHER Diabetes mellitus GRANDMOTHER Social History Smoking Status: Current Every Day Smoker Alcohol Use: none Drug Use: none Marital Status: Housing Status: lives with significant other Occupation Status: retired Current/Historical Medications Scheduled Arformoterol Tartrate (Brovana), 1 VIAL NEB BID Aspirin (Aspirin Chewable), 81 MG PO DAILY Atorvastatin (Lipitor), 20 MG PO QAM Azithromycin (Zithromax), 250 MG PO 3XWK Calcium Carbonate-Vitamin D (Calcium + D), 1 TAB PO DAILY Cholecalciferol (Vitamin D3), 2,000 INTER.UNIT PO DAILY Cyanocobalamin (Vitamin B12), 1,000 MCG PO DAILY Doxazosin Mesylate (Cardura), 4 MG PO HS Ferrous Sulfate (Ferrous Sulfate), 325 MG PO DAILY Finasteride (Proscar), 5 MG PO QAM Fluticasone Furoate-Vilanterol (Breo Ellipta), 1 PUFF INH DAILY Folic Acid (Folvite), 1 MG PO DAILY Furosemide (Furosemide), 40 MG PO 3XWK Furosemide (Lasix), 20 MG PO 4XWK Hydralazine Hcl (Apresoline), 50 MG PO BID Latanoprost (Xalatan 0.005% Oph Celia), 1 DROP OPB DAILY Methotrexate (Methotrexate), 12.5 MG PO WK Omeprazole (Prilosec), 20 MG PO DAILY Tiotropium [place] (Spiriva Handihaler), 1 CAP INH DAILY Scheduled PRN Albuterol Hfa (Ventolin Hfa), 2 PUFFS INH Q6H PRN for SOB/Wheezing Doxycycline Hyclate (Vibramycin), 100 MG PO BID PRN for Rescue Kit Ipratropium-Albuterol (Duoneb), 1 TREATMENT INH Q4H PRN for Wheezing Levalbuterol Hcl (Levalbuterol), 1 VIAL NEB Q4H PRN for Wheezing Allergies Coded Allergies: No Known Allergies (Unverified , 02/16/17) Physical Exam Vital Signs Date Time Temp Pulse Resp B/P (MAP) Pulse Ox O2 Delivery O2 Flow Rate FiO2 02/16/17 18:35 37.0 100 20 110/79 98 02/16/17 18:08 110/79 02/16/17 18:06 102 16 97 02/16/17 18:01 110/79 02/16/17 17:36 92 14 99 02/16/17 17:31 104/60 02/16/17 17:06 99 22 87 02/16/17 17:01 128/75 02/16/17 16:36 114 20 88 02/16/17 16:31 126/74 02/16/17 16:26 99 17 02/16/17 16:01 139/90 02/16/17 15:56 97 17 100 02/16/17 15:31 132/73 02/16/17 15:26 93 19 99 02/16/17 15:01 130/75 02/16/17 14:56 86 18 137/81 100 02/16/17 14:46 90 26 97 Nasal Cannula 5.0 02/16/17 14:26 86 22 130/79 98 Nasal Cannula 5.0 02/16/17 14:26 89 19 98 02/16/17 14:25 130/79 02/16/17 13:59 86 22 125/80 97 Nasal Cannula 5.0 02/16/17 13:59 125/80 02/16/17 13:56 80 17 98 02/16/17 13:26 88 21 99 02/16/17 13:15 97 Nasal Cannula 5.0 02/16/17 13:15 97 Nasal Cannula 5.0 02/16/17 13:11 96 02/16/17 13:08 97 Nasal Cannula 5.0 02/16/17 13:08 37.0 96 22 107/76 97 Nasal Cannula 5.0 02/16/17 13:03 107/76 Physical Exam GENERAL: Patient awake, alert, oriented x 3. Patient follows commands. Patient does not appear toxic. Patient is adequately hydrated and well- nourished. SKIN: No erythema, pallor, cyanosis or rash HEENT: Normal head, pupils equal, reactive to light and accommodation. Oral cavity and posterior pharynx appear normal. Neck: Without adenopathy, no neck vein distention. CHEST: Moderate kyphosis. LUNGS: End expiratory wheezes in all ariza. HEART: No murmurs. No gallops. No rubs ABDOMEN: No masses, no rebound, no hepatomegaly or splenomegaly. EXTREMITIES: No signs of trauma. No calf or thigh tenderness. 3+ nonpitting pedal and pretibial edema. NEUROLOGIC: Cranial nerves II-XII within normal limits. No gross motor sensory function deficits. Medical Decision & Procedures ER Provider Diagnostic Interpretation: X ray results are stated below per my interpretation and the radiologist's interpretation. CHEST 2 VIEWS ROUTINE CLINICAL HISTORY: sob dyspnea COMPARISON STUDY: 01/27/2017 FINDINGS: Mild stable cardia megaly. Bibasilar atelectatic and interstitial change unaltered from the prior study. Slight blunting of the right lateral calcific angle area emphysematous change. Pulmonary apices are clear. IMPRESSION: Chronic basilar interstitial change with a small right pleural effusion. Moderate stable cardia megaly. The above report was generated using voice recognition software. It may contain grammatical, syntax or spelling errors. Electronically signed by: Garrick Harris M.D. 02/16/2017 1:42 PM Dictated Date/Time: 02/16/2017 1:41 PM Laboratory Results 02/16/17 13:25 Red Blood Count 4.23, Mean Corpuscular Volume 88.7, Mean Corpuscular Hemoglobin 25.5, Mean Corpuscular Hemoglobin Concent 28.8, Mean Platelet Volume 9.5, Neutrophils (%) (Auto) 80.6, Lymphocytes (%) (Auto) 10.2, Monocytes (%) (Auto) 7.4, Eosinophils (%) (Auto) 1.3, Basophils (%) (Auto) 0.0, Neutrophils # (Auto) 7.39, Lymphocytes # (Auto) 0.94, Monocytes # (Auto) 0.68, Eosinophils # (Auto) 0.12, Basophils # (Auto) 0.00 02/16/17 13:25 02/16/17 14:38 Test 02/16/17 13:25 02/16/17 14:38 02/16/17 15:00 White Blood Count 9.18 K/uL (4.8-10.8) Red Blood Count 4.23 M/uL (4.7-6.1) Hemoglobin 10.8 g/dL (14.0-18.0) Hematocrit 37.5 % (42-52) Mean Corpuscular Volume 88.7 fL (80-100) Mean Corpuscular Hemoglobin 25.5 pg (25-34) Mean Corpuscular Hemoglobin Concent 28.8 g/dl (32-36) Platelet Count 203 K/uL (130-400) Mean Platelet Volume 9.5 fL (7.4-10.4) Neutrophils (%) (Auto) 80.6 % Lymphocytes (%) (Auto) 10.2 % Monocytes (%) (Auto) 7.4 % Eosinophils (%) (Auto) 1.3 % Basophils (%) (Auto) 0.0 % Neutrophils # (Auto) 7.39 K/uL (1.4-6.5) Lymphocytes # (Auto) 0.94 K/uL (1.2-3.4) Monocytes # (Auto) 0.68 K/uL (0.11-0.59) Eosinophils # (Auto) 0.12 K/uL (0-0.5) Basophils # (Auto) 0.00 K/uL (0-0.2) RDW Standard Deviation 52.5 fL (36.4-46.3) RDW Coefficient of Variation 16.2 % (11.5-14.5) Immature Granulocyte % (Auto) 0.5 % Immature Granulocyte # (Auto) 0.05 K/uL (0.00-0.02) Red Blood Cell Morphology Unremarkable Anion Gap 1.0 mmol/L (3-11) Est Creatinine Clear Calc Drug Dose 80.1 ml/min Estimated GFR () 99.7 Estimated GFR (Non- 86.0 BUN/Creatinine Ratio 16.3 (10-20) Calcium Level 8.3 mg/dl (8.5-10.1) Total Bilirubin 0.5 mg/dl (0.2-1) Alanine Aminotransferase (ALT/SGPT) 21 U/L (12-78) Alkaline Phosphatase 85 U/L (45-117) Troponin I 0.039 ng/ml (0-0.045) Pro-B-Type Natriuretic Peptide 3965 pg/ml (0-900) Total Protein 5.8 gm/dl (6.4-8.2) Albumin 2.8 gm/dl (3.4-5.0) Globulin 3.0 gm/dl (2.5-4.0) Albumin/Globulin Ratio 0.9 (0.9-2) Aspartate Amino Transf (AST/SGOT) 5 U/L (15-37) Urine Color YELLOW Urine Appearance CLEAR (CLEAR) Urine pH 5.5 (4.5-7.5) Urine Specific [place] 1.016 (1.000-1.030) Urine Protein NEG (NEG) Urine Glucose (UA) NEG (NEG) Urine Ketones NEG (NEG) Urine Occult Blood NEG (NEG) Urine Nitrite NEG (NEG) Urine Bilirubin NEG (NEG) Urine Urobilinogen NEG (NEG) Urine Leukocyte Esterase NEG (NEG) Laboratory results as stated above per my review. Medications Administered Medications (Trade) Dose Ordered Sig/Jono Route Start Time Stop Time Status Last Admin Dose Admin Albuterol/ Ipratropium (Duoneb) 12 ml ONE ONCE INH 02/16/17 14:30 02/16/17 14:31 DC 02/16/17 14:45 12 ML Furosemide (Lasix Inj) 40 mg NOW STAT IV 02/16/17 14:23 02/16/17 14:24 DC 02/16/17 14:23 40 MG ECG Indication: SOB/dyspnea Rate (beats per minute): 98 Rhythm: sinus rhythm Findings: PVC (occasional), other (normal axis; no acute ST changes) ED Course 1258: Past medical records reviewed. The patient was evaluated in room B12B. A complete history and physical examination was performed. 1423: Lasix Inj 40 mg IV 1430: DuoNeb 12 ml INH 1620: I reevaluated the patient who continues to have expiratory wheezing but less than he had before. 1705: Upon reevaluation, the patient appeared to have improvement of his symptoms. I discussed today's findings with him. He verbalized agreement of the treatment plan. He was discharged home. Medical Decision Medication Reconciliation: I attest that I have personally reviewed the patient' s current medication list. Blood pressure Screening: Patient was found to have normal blood pressure on screening and does not require follow up. Differential diagnosis includes but is not limited to COPD, CHF, pneumonia, bronchitis. The patient is here with shortness of breath. He arrives via ambulance after receiving albuterol treatment. On examination he had wheezes in all ariza. Multiple labs, EKG and imaging were obtained. Please see above. The patient has accommodation of COPD and congestive heart failure. The patient continues to smoke despite being on 5 L of oxygen. The patient was counseled about the dangers of smoking while on oxygen. The patient received another breathing treatment while here. He was given 40 of Lasix with excellent urinary output. The patient felt significantly better although he still did still have some faint expiratory wheezes. I believe this is most likely chronic. I discussed options with the patient. I believe that he can safely go home but he will need to be followed up this week with his family physician. flight kitchen manager arranged an appointment for him on Thursday. Impression Primary Impression: Congestive heart failure Additional Impression: COPD exacerbation Scribe Attestation The scribe's documentation has been prepared under my direction and personally reviewed by me in its entirety. I confirm that the note above accurately reflects all work, treatment, procedures, and medical decision making performed by me. Departure Information Dispostion Home / Self-Care Referrals Bridget Multani M.D. (MEDICAL) (PCP) Forms HOME CARE DOCUMENTATION FORM, IMPORTANT VISIT INFORMATION Patient Instructions My [facility] Additional Instructions Take 40 mg of Lasix daily until you are seen by your family doctor on Thursday. Continue using your inhalers as prescribed. Continue all of your other medications as prescribed. STOP SMOKING Problem Qualifiers
[2017-02-16 18:35] VITALS: BP 110/79; PULSE 100; TEMP 37; O2SAT 98
== END 2017-02-16 18:38 | disposition home or self-care (01) ==
LOC: EDBD 12:56 → C.EDB 12:57
DX: I50.9 Heart failure, unspecified (principal); J44.1 Chronic obstructive pulmonary disease with (acute) exacerbation; N40.0 Benign prostatic hyperplasia without lower urinary tract symptoms; K21.9 Gastro-esophageal reflux disease without esophagitis; H40.9 Unspecified glaucoma; I10 Essential (primary) hypertension; I21.4 Non-ST elevation (NSTEMI) myocardial infarction; M81.0 Age-related osteoporosis without current pathological fracture; M06.9 Rheumatoid arthritis, unspecified; E55.9 Vitamin D deficiency, unspecified; Z83.3 Family history of diabetes mellitus; F17.200 Nicotine dependence, unspecified, uncomplicated; Z79.82 Long term (current) use of aspirin

== ENCOUNTER 2017-07-20 15:10 | Emergency (ER) | payer OTHER ==
[~2017-07-20] VITALS: Ht 170.2 cm; Wt 79.0 kg
[~2017-07-20 15:10] MED LIST changes: +ASPCH81X PO; +FOLI1TAB8 PO; -FOLI800T PO; -IPRASOL4 INH; -PRED20TA2 PO; +PRLSR20 PO
[2017-07-20 15:16] VITALS: TEMP 36.4; Ht 170.2 cm; Wt 79.0 kg
[2017-07-20] MEDS ORDERED: PROPARACAINE HCL 0.5% OP SOLN 15 ML BTL OP STA (15:36)
--- NOTE | 2017-07-20 15:50 | EMERGENCY ROOM VISIT NOTE ---
History First contact with patient: 15:22 Chief Complaint: RASH Stated Complaint: POSSIBLE SHINGLES - RASH, SWELLING, BLISTER History of Present Illness The patient is a 72 year old male who presents to the Emergency Room accompanied by his daughter with complaints of a rash to the right side of his face. His daughter reports they first noticed several spots to the right-sided face and scalp 1 week ago. These have been itchy and the patient has been scratching at them. For the past few days, they have noticed increased redness surrounding the rash as well as swelling of the right side of the face. The patient has redness and swelling of the right eye. At baseline, the patient has very poor vision in the right eye and is able to see only light. He denies any pain. The patient denies history of she goes. He has not had the herpes zoster vaccine. He does report he had chickenpox as a child. The patient was seen at [facility] and sent here for further valuation. He denies fevers. He has a history of COPD and wears 5 L of oxygen at all times. He denies any increased shortness of breath from his baseline. Review of Systems A complete 10 point review of systems was reviewed with the patient with pertinent positives and negatives as per history of present illness. All else were negative. Past Medical/Surgical History Medical Problems: (1) BPH (benign prostatic hyperplasia) (2) Cataract (3) COPD exacerbation (4) COPD, moderate (5) GERD (gastroesophageal reflux disease) (6) Glaucoma (7) Hypertension (8) Non-ST elevation [place] (NSTEMI) (9) Osteoporosis (10) Pulmonary embolism (11) Rheumatoid arthritis (12) Vitamin D deficiency Surgical Problems: (1) H/O eye surgery Social History Problems: (1) Tobacco abuse Family History Aneurysm FATHER Diabetes mellitus GRANDMOTHER Social History Smoking Status: Current Every Day Smoker Alcohol Use: none Drug Use: none Marital Status: Housing Status: lives with significant other Occupation Status: retired Current/Historical Medications Scheduled Arformoterol Tartrate (Brovana), 1 VIAL NEB BID Aspirin (Aspirin Chewable), 81 MG PO DAILY Atorvastatin (Lipitor), 20 MG PO QAM Azithromycin (Zithromax), 250 MG PO 3XWK Calcium Carbonate-Vitamin D (Calcium + D), 1 TAB PO DAILY Cephalexin Monohydrate (Keflex), 500 MG PO QID Cholecalciferol (Vitamin D3), 2,000 INTER.UNIT PO DAILY Cyanocobalamin (Vitamin B12), 1,000 MCG PO DAILY Doxazosin Mesylate (Cardura), 4 MG PO HS Erythromycin Opth (Erythromycin Opth), 1 APPLN OPR TID Ferrous Sulfate (Ferrous Sulfate), 325 MG PO DAILY Finasteride (Proscar), 5 MG PO QAM Fluticasone Furoate-Vilanterol (Breo Ellipta), 1 PUFF INH DAILY Folic Acid (Folvite), 1 MG PO DAILY Furosemide (Furosemide), 40 MG PO 3XWK Furosemide (Lasix), 20 MG PO 4XWK Hydralazine Hcl (Apresoline), 50 MG PO BID Latanoprost (Xalatan 0.005% Oph Celia), 1 DROP OPB DAILY Methotrexate (Methotrexate), 12.5 MG PO WK Omeprazole (Prilosec), 20 MG PO DAILY Tiotropium [place] (Spiriva Handihaler), 1 CAP INH DAILY Scheduled PRN Albuterol Hfa (Ventolin Hfa), 2 PUFFS INH Q6H PRN for SOB/Wheezing Doxycycline Hyclate (Vibramycin), 100 MG PO BID PRN for Rescue Kit Levalbuterol Hcl (Levalbuterol), 1 VIAL NEB Q4H PRN for Wheezing Physical Exam Vital Signs Date Time Temp Pulse Resp B/P (MAP) Pulse Ox O2 Delivery O2 Flow Rate FiO2 07/20/17 17:59 80 20 109/73 93 Nasal Cannula 5.0 07/20/17 16:32 80 22 101/75 95 Nasal Cannula 5.0 07/20/17 16:20 83 07/20/17 15:27 85 22 108/76 93 Nasal Cannula 5.0 07/20/17 15:16 36.4 80 18 82/55 91 Nasal Cannula 5.0 Physical Exam VITALS: Vitals are noted on the nurse's note and reviewed by myself. Vital signs stable. GENERAL: This is a 72-year-old male, in no acute distress, nondiaphoretic, well- developed well-nourished. SKIN: There are multiple crusted lesions over the right forehead and right side of the scalp. There are no vesicular lesions. There is surrounding erythema and warmth consistent with a surrounding cellulitis. EARS: External auditory canals clear, tympanic membranes pearly bishop without erythema or effusion bilaterally. EYES: There is right periorbital edema and right conjunctival injection. Slit- lamp examination with fluorescein stain under UV light reveals 2 small areas of uptake over the cornea just inferior to the pupil but no overt dendritic lesions. There is some surrounding punctate uptake over the cornea. MOUTH: Mucous membranes moist. NECK: Supple without nuchal rigidity. No lymphadenopathy. HEART: Regular rate and rhythm without murmurs gallops or rubs. LUNGS: Clear to auscultation bilaterally without wheezes, rales or rhonchi. NEURO: Patient was alert and oriented to person place and time. Medical Decision & Procedures Laboratory Results 07/20/17 15:41 Red Blood Count 4.86, Mean Corpuscular Volume 93.0, Mean Corpuscular Hemoglobin 29.6, Mean Corpuscular Hemoglobin Concent 31.9, Mean Platelet Volume 10.5, Neutrophils (%) (Auto) 54.9, Lymphocytes (%) (Auto) 24.2, Monocytes (%) (Auto) 15.7, Eosinophils (%) (Auto) 4.3, Basophils (%) (Auto) 0.7, Neutrophils # (Auto ) 2.97, Lymphocytes # (Auto) 1.31, Monocytes # (Auto) 0.85, Eosinophils # (Auto ) 0.23, Basophils # (Auto) 0.04 07/20/17 15:41 Test 07/20/17 15:41 White Blood Count 5.41 K/uL (4.8-10.8) Red Blood Count 4.86 M/uL (4.7-6.1) Hemoglobin 14.4 g/dL (14.0-18.0) Hematocrit 45.2 % (42-52) Mean Corpuscular Volume 93.0 fL (80-100) Mean Corpuscular Hemoglobin 29.6 pg (25-34) Mean Corpuscular Hemoglobin Concent 31.9 g/dl (32-36) Platelet Count 116 K/uL (130-400) Mean Platelet Volume 10.5 fL (7.4-10.4) Neutrophils (%) (Auto) 54.9 % Lymphocytes (%) (Auto) 24.2 % Monocytes (%) (Auto) 15.7 % Eosinophils (%) (Auto) 4.3 % Basophils (%) (Auto) 0.7 % Neutrophils # (Auto) 2.97 K/uL (1.4-6.5) Lymphocytes # (Auto) 1.31 K/uL (1.2-3.4) Monocytes # (Auto) 0.85 K/uL (0.11-0.59) Eosinophils # (Auto) 0.23 K/uL (0-0.5) Basophils # (Auto) 0.04 K/uL (0-0.2) RDW Standard Deviation 51.4 fL (36.4-46.3) RDW Coefficient of Variation 15.1 % (11.5-14.5) Immature Granulocyte % (Auto) 0.2 % Immature Granulocyte # (Auto) 0.01 K/uL (0.00-0.02) Prothrombin Time 11.4 SECONDS (9.0-12.0) Prothromb Time International Ratio 1.1 (0.9-1.1) Activated Partial Thromboplast Time 32.2 SECONDS (21.0-31.0) Partial Thromboplastin Ratio 1.2 Anion Gap 4.0 mmol/L (3-11) Est Creatinine Clear Calc Drug Dose 49.7 ml/min Estimated GFR () 67.3 Estimated GFR (Non- 58.0 BUN/Creatinine Ratio 15.2 (10-20) Calcium Level 8.5 mg/dl (8.5-10.1) Total Bilirubin 1.1 mg/dl (0.2-1) Aspartate Amino Transf (AST/SGOT) U/L (15-37) Alanine Aminotransferase (ALT/SGPT) 12 U/L (12-78) Alkaline Phosphatase 88 U/L (45-117) Total Protein 6.6 gm/dl (6.4-8.2) Albumin 2.7 gm/dl (3.4-5.0) Globulin 3.9 gm/dl (2.5-4.0) Albumin/Globulin Ratio 0.7 (0.9-2) Medications Administered Medications (Trade) Dose Ordered Sig/Jono Route Start Time Stop Time Status Last Admin Dose Admin Cephalexin Monohydrate (Keflex 500MG Home Pack) 1 homepack NOW ONCE PO 07/20/17 17:45 07/20/17 17:46 DC 07/20/17 17:58 1 HOMEPACK Erythromycin (Erythromycin Oph Oint) 12 appln STK-MED ONCE .ROUTE 07/20/17 17:35 07/20/17 17:36 DC 07/20/17 17:58 12 APPLN Medical Decision Differential diagnosis includes herpes zoster, abscess, cellulitis, eczema, folliculitis, among others. The patient was evaluated as above. He presents with a rash to the right side of the face. There is now surrounding redness and warmth. The rash has been itchy, but not painful. On exam, the rash is crusted and there is surrounding cellulitis. I am unsure if this represents shingles, as the patient has not had any pain with the rash. However, it does not cross the midline and the appearance is consistent with possible shingles. The etiology of the initial rash is unclear, however the patient does seem to have now developed a cellulitis which will need to be treated. He is afebrile and there is no leukocytosis on laboratory testing. I do feel he is safe for outpatient treatment. He will be placed on Keflex. In addition, the patient has some redness and swelling of the eye. I feel this is likely due to the patient's itching at the area surrounding the eye. There are no dendritic lesions on exam. He will be placed on erythromycin ointment and was given information for ophthalmology follow-up. He will follow-up with his primary care provider within 2 days for a recheck of his rash. The patient and family members verbalized understanding of my assessment and treatment plan and the patient was discharged home in good condition. Of note, the patient's blood pressure in triage was found to be hypotensive, however, this was rechecked immediately on arrival to the room and was at the patient's baseline. The patient was wearing several thick coats which were not removed to take this initial blood pressure. I feel this is more likely to be false reading than true hypotension. The patient was independently evaluated by Dr. Arevalo, ED attending physician, who agreed with my assessment and treatment plan. Medication Reconcilliation Current Medication List: was personally reviewed by me Blood Pressure Screening Patient's blood pressure: Normal blood pressure Impression Primary Impression: Cellulitis of face Departure Information Dispostion Home / Self-Care Condition GOOD Prescriptions Erythromycin Opth (ERYTHROMYCIN OPTH) 12 Appln/3.5 Gm Oint 1 APPLN OPR TID, #1 TUBE Prov: Manuela Chavez .FABIAN 07/20/17 Cephalexin Monohydrate (Keflex) 500 Mg Cap 500 MG PO QID for 10 Days, #40 CAP Prov: Manuela Chavez PA-C 07/20/17 Referrals Bridget Multani M.D. (MEDICAL) (PCP) Altaf Lopez D.O. Patient Instructions My [facility] Additional Instructions You were prescribed Keflex to be taken 4 times daily for 10 days. This is an antibiotic. All antibiotics have the potential to cause diarrhea. Stop this medication and contact a medical provider if you were to develop any significant adverse side effects including: wheezing, shortness of breath, passing out, vomiting, or a diffuse rash. Always take antibiotics as directed and COMPLETE the ENTIRE course regardless of the improvement of your symptoms. For pain control, you can use the following [id number] medicines (if >12 yo): - Regular strength (325mg/tab) Tylenol (acetaminophen) 2 tabs every 4-6 hours as needed. Do not exceed 12 tablets in a 24 hour period. Avoid taking more than 4 grams (4000 mg) of Tylenol per day. This includes any other sources of acetaminophen you may take on a regular basis. - Regular strength (200 mg/tab) Advil (ibuprofen) 1-2 tabs every 4-6 hours as needed. Do not exceed a dose of 3200 mg per day. Follow-up with ophthalmology within 3 days for a recheck. You should also call your primary care provider to schedule a follow-up within 2 days for a recheck. Return to the emergency department with worsening redness, worsening swelling, fevers or any other new/concerning symptoms.
[2017-07-20 15:56] LABS: BASO % 0.7 %; BASO ABS # 0.04 K/uL (0-0.2); COMPLETE YES; EOS % 4.3 %; HEMATOCRIT 45.2 % (42-52); IG% 0.2 %; LYMPH % 24.2 %; LYMPH ABS # 1.31 K/uL (1.2-3.4); MEAN CORPUSCULAR HEMOGLOBIN 29.6 pg (25-34); MEAN CORPUSCULAR HGB CONC 31.9 g/dl (32-36); MEAN PLATELET VOLUME 10.5 fL (7.4-10.4); MONO % 15.7 %; NEUT % 54.9 %; PLATELET COUNT 116 K/uL (130-400); RED BLOOD COUNT 4.86 M/uL (4.7-6.1); WHITE BLOOD COUNT 5.41 K/uL (4.8-10.8)
[2017-07-20 16:05] LABS: INR 1.1 (0.9-1.1); PARTIAL THROMBOPLASTIN RATIO 1.2; PROTHROMBIN TIME (PATIENT) 11.4 SECONDS (9.0-12.0)
[2017-07-20 16:29] LABS: ALB/GLOB RATIO 0.7 (0.9-2); BUN/CREATININE RATIO 15.2 (10-20); CALCIUM 8.5 mg/dl (8.5-10.1); CREATININE 1.22 mg/dl (0.60-1.40)
[2017-07-20] MEDS ORDERED: ERYTHROMYCIN OP OINT 1 GM PKT OP STA (17:32)
[2017-07-20] MEDS ORDERED: ERYTHROMYCIN OP OINT 5 MG/GM 3.5 GM TUBE ONE (17:35)
[2017-07-20] MEDS ORDERED: CEPH500C PO (17:35)
[2017-07-20] MEDS ORDERED: ERYOPO OPR (17:35)
[2017-07-20] MEDS ORDERED: CEPHALEXIN 500MG HOME PACK 1 EA BTL PO ONE (17:45)
[2017-07-20 17:59] VITALS: BP 109/73; PULSE 80; O2SAT 93
--- NOTE | 2017-07-20 19:40 | EMERGENCY ROOM VISIT NOTE ---
ED Visit Note First contact with patient: 15:22 HPI: 72M with right facial scalp rash. Pruritic, No pain. Right eye injection. Plan: Most likely cellulitis given warmth. Given lack of pain unlikely to be zoster. Right eye injection likely conjunctivitis 2/2 patient rubbing eye. Per PA slit lamp exam no dendritic patterns but some scattered fluorescene uptake. Plan for Keflex and erythromycin ophthalmic ointment. PCP and Optho f/u. I reviewed the patient's past medical history, medications, and visit nursing notes. I discussed the case with the physician anatomic pathology assistant, examined the patient, and agree with the findings and plan as documented in the physician assistants note.
== END 2017-07-20 18:00 | disposition home or self-care (01) ==
LOC: C.EDB 15:11
DX: L03.211 Cellulitis of face (principal); I10 Essential (primary) hypertension; J44.9 Chronic obstructive pulmonary disease, unspecified; I25.2 Old myocardial infarction; M06.9 Rheumatoid arthritis, unspecified; E55.9 Vitamin D deficiency, unspecified; M81.0 Age-related osteoporosis without current pathological fracture; F17.200 Nicotine dependence, unspecified, uncomplicated; Z86.711 Personal history of pulmonary embolism; Z98.49 Cataract extraction status, unspecified eye; Z98.890 Other specified postprocedural states; Z79.82 Long term (current) use of aspirin; Z79.899 Other long term (current) drug therapy; Z83.3 Family history of diabetes mellitus